=== PATIENT | male | born 1985 | race Two or more races ===

== ENCOUNTER 2018-06-18 03:05 | Inpatient (IN) | payer MEDICAID ==
[2018-06-18] MEDS ORDERED: Sodium Chloride 0.9% 1,000 ML IV ONE (03:22)
--- NOTE | 2018-06-18 03:40 | ED Physician Chart ---
ED Chief Complaint/HPI - Patient Information Date Seen:: 06/18/18 Time Seen:: 03:32 Chief Complaint:: rectal bleeding History of Present Illness:: THIS IS A 32 YO MALE HEPATIC FAILURE PATIENT WHO IS CONCERNED ABOUT RECTAL BLEEDING THIS AM. HE HAS A HISTORY OF ALCOHOL ABUSE and has been treated at [facility] WITH BLOOD TRANSFUSION AND FLOOD REMOVED FROM THE ABDOMEN SEVERAL TIMES. Allergies:: Allergies Allergy/AdvReac Type Severity Reaction Status Date / Time No Known Allergies Allergy Verified 06/18/18 03:08 Vitals:: Vital Signs - 8 hr 06/18/18 03:05 Temp 99.0 F HR 110 RR 18 BP 113/62 O2 Sat % 95 Historian:: Patient Review:: Nurse's Note Reviewed ED Review of Systems - Review of Systems General/Constitutional: No fever, No chills, No weight loss, Weakness, No diaphoresis, No edema, No loss of appetite Skin: No skin lesions, No rash, No bruising Head: No headache, No light-headedness Eyes: No loss of vision, No pain, No diplopia ENT: No earache, No nasal drainage, No sore throat, No tinnitus Neck: No neck pain, No swelling, No thyromegaly, No stiffness, No mass noted Cardio Vascular: No chest pain, No palpitations, No PND, No orthopnea, No edema Pulmonary: No SOB, No cough, No sputum, No wheezing GI: No nausea, No vomiting, No diarrhea, No pain, No melena, No hematochezia, No constipation, No hematemesis, Other (rectal bleeding ) G/U: No dysuria, No frequency, No hematuria Musculoskeletal: No bone or joint pain, No back pain, No muscle pain Endocrine: No polyuria, No polydipsia Psychiatric: No prior psych history, No depression, No anxiety, No suicidal ideation Hematopoietic: No bruising, No lymphadenopathy Allergic/Immuno: No urticaria, No angioedema Neurological: No syncope, No focal symptoms, No weakness, No paresthesia, No headache, No seizure, No dizziness, No confusion, No vertigo ED Past Medical History - Past Medical History Obtainable: Yes Past Medical History: Other (HEPATIC FAILURE SECONDARY TO ALCOHOL ABUSE.) Family History: None Social History: Non Smoker, Alcohol, No Drug Use, Single, Lives With Parents Surgical History: other (RECTAL SURGERY, FLUID REMOVED FROM THE ABDOMEN) Psychiatricy History: None Medication: Reviewed Family Medical History - Family Member Mother History Unknown: Yes ED Physical Exam - Physical Examination General/Constitutional: Awake, Well-developed, well-nourished, Alert, No distress (YELLOW AND DISTENDED ABDOMEN.), GCS 15, Non-toxic appearing, Ambulatory Head: Atraumatic Eyes: Lids, conjuctiva normal, PERRL, EOMI Skin: Nl inspection, No rash, No skin lesions, No ecchymosis, Well hydrated, No lymphadenopathy ENMT: External ears, nose nl, Nasal exam nl, Lips, teeth, gums nl Neck: Nontender, Full ROM w/o pain, No JVD, No nuchal rigidity, No bruit, No mass, No stridor Respiratory: Nl effort/Exclusion, Clear to Auscultation, No Wheeze/Rhonchi/Rales Cardio Vascular: RRR, No murmur, gallop, rubs, NL S1 S2 GI: No tenderness/rebounding/guarding, No organomegaly, No hernia, Normal BS's, Nondistended (DISTENDED ABDOMEN WITH ASCITES), No mass/bruits, No McBurney tenderness : No CVA tenderness Extremities: No tenderness or effusion, Full ROM, normal strength in all extremities, No edema, Normal digits & nails Neuro/Psych: Alert/oriented, DTR's symmetric, Normal sensory exam, Normal motor strength, Judgement/insight normal, Mood normal, Normal gait, No focal deficits Misc: Normal back, No paraspinal tenderness ED Labs/Radiology/EKG Results - Lab Results Results: Abnormal Lab Results 06/18/18 06/18/18 06/18/18 03:50 03:50 03:50 WBC 18.8 H RBC 2.25 L Hgb 6.8 L* Hct 19.4 L* MCV 86.1 MCH 30.1 H MCHC Differential 34.9 RDW 17.6 Plt Count 66 L MPV 8.3 Add Manual Diff YES INR BOX BUILDER PTT (Actin FS) Sodium 134 L Potassium 4.0 Chloride 108 H Carbon Dioxide 14.0 L Anion Gap 16.0 BUN 50 H Creatinine 3.3 H Est GFR ( Amer) 27.9 Est GFR (Non-Af Amer) 23.1 BUN/Creatinine Ratio 15.2 Glucose 93 Calcium 8.1 L Total Bilirubin 24.6 H AST 83 H ALT 16 Alkaline Phosphatase 165 H Troponin I Total Protein 4.8 L Albumin 2.7 L Globulin 2.1 Albumin/Globulin Ratio 1.3 Amylase 57 Lipase 132 H Ethyl Alcohol 06/18/18 06/18/18 03:50 03:50 WBC RBC Hgb Hct MCV MCH MCHC Differential RDW Plt Count MPV Add Manual Diff INR PTT (Actin FS) Sodium Potassium Chloride Carbon Dioxide Anion Gap BUN Creatinine Est GFR ( Amer) Est GFR (Non-Af Amer) BUN/Creatinine Ratio Glucose Calcium Total Bilirubin AST ALT Alkaline Phosphatase Troponin I 0.02 Total Protein Albumin Globulin Albumin/Globulin Ratio Amylase Lipase Ethyl Alcohol < 10 - Radiology Results Results: CT SCAN OF THE ABDOMEN AND PELVIS = ASCITES,AND LIVER DISEASE. - EKG Interpretations EKG Time:: 03:55 Rate & Rhythm: MGQI=[id number], SINUS Stanley: RIGHT ED Assessment - Assessment General Assessment: GI BLEEDING LIVER FAILURE Critical Care Time: 74 MINUTES Excludes all billable procedures: Yes This condition life threatening/high prob of deterioration: Yes ED Septic Shock - . Is Septic Shock (SBP<90, OR Lactate>4 mmol\L) present?: No - <6hrs of presentation: Vital Signs: Vital Signs - 8 hr 06/18/18 03:05 Temp 99.0 F HR 110 RR 18 BP 113/62 O2 Sat % 95 ED Reassessment (Disposition) - Reassessment Reassessment Condition:: Unchanged - Diagnosis Diagnosis:: LOWER GI BLEEDING HEPATIC FAILURE - Patient Disposition Discharge/Transfer:: Acute Care w/in this hosp Admitted to:: ICU Admitting Medical Physician:: Edgardo Mcarthur Condition at Disposition:: Improved
[2018-06-18 04:17] LABS: MEAN CELL VOLUME 86.1 fl (80-99); MEAN CORPUSCULAR HEMOGLOBIN 30.1 pg (26.0-30.0); MEAN CORPUSCULAR HGB CONC 34.9 pg (28.0-36.0); MEAN PLATELET VOLUME 8.3 fl; PLATELET COUNT 66 Th/cmm (150-400); RED BLOOD COUNT 2.25 Mil/cmm (4.30-5.70); RED CELL DISTRIBUTION WIDTH 17.6 % (11.5-20.0)
[2018-06-18 04:30] LABS: HEMATOCRIT 19.4 % (41.0-60); HEMOGLOBIN 6.8 gm/dL (12-16); WHITE BLOOD COUNT 18.8 Th/cmm (4.8-10.8)
[2018-06-18 04:52] LABS: ALB/GLOB RATIO 1.3 (1.0-1.8); ALBUMIN 2.7 gm/dL (4.2-5.5); BILIRUBIN,TOTAL 24.6 mg/dL (0.3-1.0); CALCIUM SERUM 8.1 mg/dL (8.6-10.3); CREATININE - SERUM 3.3 mg/dL (0.7-1.3); GFR AFRICAN-AMERICAN 27.9 ml/min (>90); GFR NON AFRICAN-AMERICAN 23.1 ml/min; TOTAL PROTEIN,SERUM 4.8 gm/dL (6.0-8.3)
[2018-06-18 06:01] LABS: BAND NEUTROPHILE 2 % (0-10); LYMPHOCYTE 34 % (20-50); MONOCYTE 1 % (2-10); NEUTROPHILS 63 % (40-80)
[2018-06-18 06:02] LABS: BURR CELLS 1+; HYPOCHROMIA 1+; PLATELET ESTIMATE DECREASED PLATELETS (NORMAL); POIKILOCYTOSIS 1+; POLYCHROMASIA 1+; SCHISTOCYTES 1+
--- NOTE | 2018-06-18 06:46 | History and Physical ---
History of Present Illness - HPI Chief Complaint: rectal bleeding HPI: 32 y/o male who presents to [facility] ER for rectal bleeding. Patient is a 32 y/o male with hepatic failure who presents with rectal bleeding which began this morning. Patient has a history of ETOH abuse was recently seen at [facility] in [place] and was had fluid removed from his abdomen. He also received a blood transfusion recently. Vital Signs: Last Vital Signs Temp 97.7 F 06/18/18 05:50 Pulse 100 06/18/18 05:50 Resp 20 06/18/18 05:50 BP 97/58 06/18/18 05:50 Pulse Ox 99 06/18/18 05:50 Past Medical History Cardiovascular: Report: No Pertinent Hx Pulmonary: Report: No Pertinent Hx RD MECHANICAL ENGINEER: Report: No Pertinent Hx GI: Report: GI Bleed, Other (hepatic failure) Psych: Report: No Pertinent Hx Musculoskeletal: Report: No Pertinent Hx Rheumatologic: Report: No pertinent Hx Infectious Disease: Report: No Pertinent Hx Renal/: Report: No Pertinent Hx Endocrine: Report: No Pertinent Hx Dermatology: Report: No Pertinent Hx - Past Surgical History Past Surgical History: Other (GI surgery) Family Medical History - Family Member Mother History Unknown: Yes Social History Smoke: No Alcohol: Other (Yes) Drugs: None Lives: With Family - Medications Home Medications: Home Medication Medication Instructions Recorded Type Folic Acid [Folate*] 1 mg PO DAILY 06/18/18 History Levetiracetam [Keppra] 500 mg PO BID 06/18/18 History Midodrine HCl 10 mg PO TID 06/18/18 History Octreotide Acetate [Sandostatin] 100 mcg SQ TID 06/18/18 History Potassium Chloride ER [Klor-Con] 2 tab PO DAILY 06/18/18 History Thiamine [Vitamin B1] 100 mg PO DAILY 06/18/18 History - Allergies Allergies/Adverse Reactions: Allergies Allergy/AdvReac Type Severity Reaction Status Date / Time No Known Allergies Allergy Verified 06/18/18 03:08 Review of Systems - Review of Systems Constitutional: Report: No Significant Eyes: Report: No Significant ENT: Report: No Significant Respiratory: Report: No Significant Cardiovascular: Report: No Significant Gastrointestinal: Report: Other (rectal bleeding) Genitourinary: Report: No Significant Musculoskeletal: Report: No Significant Skin: Report: No Significant Neurological: Report: No Significant Physical Exam - Physical Exam HEENT: Report: Ears Nose Throat within normal limits, Pharnyx within normal limits Neck: Report: Within normal limits Cardiovascular Systems: Report: +s1/s2 noted, Regular, Rate and Rhythm Respiratory: Report: Breath Sounds are within normal limits Abdomen: Report: Hepatomegaly Noted Back: Report: Inspection of back is within normal limits. Extremities: Report: Non-tender to palpation. Skin: Report: Other (jaundice) Neuro/Psych: Report: Mood affect is within normal limits, A+Ox3, CN II-XII intact - Lab Results All Lab Results last 24 hours: Laboratory Results - last 24 hr 06/18/18 06/18/18 06/18/18 03:50 03:50 03:50 WBC 18.8 H RBC 2.25 L Hgb 6.8 L* Hct 19.4 L* MCV 86.1 MCH 30.1 H MCHC Differential 34.9 RDW 17.6 Plt Count 66 L MPV 8.3 Add Manual Diff YES Band Neutrophils % 2 Neutrophils (Manual) 63 Lymphocytes 34 Monocytes 1 L Hypochromia 1+ Platelet Estimate DECREASED PLATELETS Polychromasia 1+ Poikilocytosis 1+ Fox Cells 1+ Schistocytes 1+ INR FIBER DESIGNER PTT (Actin FS) Sodium 134 L Potassium 4.0 Chloride 108 H Carbon Dioxide 14.0 L Anion Gap 16.0 BUN 50 H Creatinine 3.3 H Est GFR ( Amer) 27.9 Est GFR (Non-Af Amer) 23.1 BUN/Creatinine Ratio 15.2 Glucose 93 Whole Bld Lactic Acid Calcium 8.1 L Total Bilirubin 24.6 H AST 83 H ALT 16 Alkaline Phosphatase 165 H Ammonia Troponin I Total Protein 4.8 L Albumin 2.7 L Globulin 2.1 Albumin/Globulin Ratio 1.3 Amylase 57 Lipase 132 H TSH Ethyl Alcohol Blood Type Antibody Screen Crossmatch 06/18/18 06/18/18 06/18/18 03:50 03:50 03:50 WBC RBC Hgb Hct MCV MCH MCHC Differential RDW Plt Count MPV Add Manual Diff Band Neutrophils % Neutrophils (Manual) Lymphocytes Monocytes Hypochromia Platelet Estimate Polychromasia Poikilocytosis Fox Cells Schistocytes INR PTT (Actin FS) Sodium Potassium Chloride Carbon Dioxide Anion Gap BUN Creatinine Est GFR ( Amer) Est GFR (Non-Af Amer) BUN/Creatinine Ratio Glucose Whole Bld Lactic Acid Calcium Total Bilirubin AST ALT Alkaline Phosphatase Ammonia 55 H Troponin I 0.02 Total Protein Albumin Globulin Albumin/Globulin Ratio Amylase Lipase TSH 3.57 Ethyl Alcohol Blood Type Antibody Screen Crossmatch 06/18/18 06/18/18 06/18/18 03:50 03:50 03:50 WBC RBC Hgb Hct MCV MCH MCHC Differential RDW Plt Count MPV Add Manual Diff Band Neutrophils % Neutrophils (Manual) Lymphocytes Monocytes Hypochromia Platelet Estimate Polychromasia Poikilocytosis Arielle Cells Schistocytes INR PTT (Actin FS) Sodium Potassium Chloride Carbon Dioxide Anion Gap BUN Creatinine Est GFR ( Amer) Est GFR (Non-Af Amer) BUN/Creatinine Ratio Glucose Whole Bld Lactic Acid 0.68 Calcium Total Bilirubin AST ALT Alkaline Phosphatase Ammonia Troponin I Total Protein Albumin Globulin Albumin/Globulin Ratio Amylase Lipase TSH Ethyl Alcohol < 10 Blood Type O POSITIVE Antibody Screen NEGATIVE Crossmatch See Detail - Assessment Assessment: GI bleeding h/o alcohol abuse heaptic failure secondary to ETOH abuse severe anemia ascites leukocytosis thrombocytopenia acute on chronic renal failure - Plan Plan: GI consult type and screen for 2 units packed RBC's and transfuse ID consult lactic acid level renal consult hepatitis panel IV Protonix PT/INR repeat CBC,CMP tomorrow AM
[2018-06-18] MEDS ORDERED: D5-0.9%NS 1,000 ML IV SCH (07:13)
[2018-06-18 07:30] LABS: INR 2.59 (0.5-1.4); PROTHROMBIN TIME (TEST) 28.3 SECONDS (9.5-11.5)
[2018-06-18] MEDS ORDERED: Albumin 5% 12.5gm/250mL 12.5 GM/250 ML BTL IV ONE ×3 (08:06→08:07)
[2018-06-18] MEDS ORDERED: Sodium Chloride 0.9% 1,000 ML IV SCH ×2 (08:15)
[2018-06-18 09:07] LABS: HEMATOCRIT 13.7 % (41.0-60); HEMOGLOBIN 4.9 gm/dL (12-16)
[2018-06-18] MEDS ORDERED: SODIUM CHLORIDE 0.9% IV ONE (09:21)
[2018-06-18] MEDS ORDERED: OCTREOTIDE ACETATE IV ONE (09:21)
[2018-06-18] MEDS ORDERED: Pantoprazole 80 MG in Sodium Chloride 0.9% 100 ML IV ONE (09:30)
--- NOTE | 2018-06-18 09:40 | Diagnostic Imaging Report ---
CT scan abdomen and pelvis without intravenous contrast HISTORY: Rectal bleeding, abdominal distention Total DLP equals 775 CTDI equals 12.6 Axial sections were obtained from the xiphoid process down to the pubic symphysis. The exam demonstrates a moderate to large amount of ascites. No focal lesions seen within the liver. The spleen appears normal. No focal abnormality seen within the pancreas. There is a dilated gallbladder with intraluminal hyperdensity. Cholelithiasis cannot be excluded. Sonography would provide additional assessment. No focal renal lesions. Poor delineation of bowel wall margins. There appears to be generalized thickening of the bowel wall through the sigmoid colon and rectum. Suggestion of small air collections within the wall of the rectum and possibly the ascending colon. Again, inflammatory change cannot be excluded. There appears to be small collections of extraluminal gas adjacent to the right anterior margin of the rectal wall. Inflammatory change including abscess formation cannot be excluded. Clinical correlation is needed. IMPRESSION: 1. Moderate to large amount of ascites 2. Suggestion of wall thickening involving the sigmoid colon and rectum. Inflammatory change cannot be excluded. Suggestion of small air collections within the wall of the rectum and possibly ascending colon. Again, inflammatory change cannot be excluded. 3. Suggestion of small extraluminal gas collections adjacent the right anterior margin of the rectal wall. Inflammatory change including abscess formation cannot be excluded. Clinical correlation is needed. 4. Intraluminal hyperdensity within a gallbladder. Findings may be associated with "sludge". Cholelithiasis cannot be excluded. Sonography would provide additional assessment.
[2018-06-18] MEDS: Pantoprazole 80 MG in Sodium Chloride 0.9% 100 ML IV SCH ×2 (09:45→20:45)
--- NOTE | 2018-06-18 10:40 | Operative Report ---
DATE OF SURGERY: 06/18/2018 PREOPERATIVE DIAGNOSES: 1. Severe rectal bleeding post-hemorrhoid surgery. 2. Thrombocytopenia. 3. Markedly elevated prothrombin time of 28.3. 4. Cirrhosis of the liver. POSTOPERATIVE DIAGNOSES: 1. Severe rectal bleeding post-hemorrhoid surgery. 2. Thrombocytopenia. 3. Markedly elevated prothrombin time of 28.3. 4. Cirrhosis of the liver. OPERATION DONE: Insertion of central line, right femoral vein. DESCRIPTION OF PROCEDURE: The right groin was shaved, prepped with ChloraPrep and draped in appropriate manner. 1% lidocaine was used to infiltrate the inguinal creases medial to the femoral pulsation. A size 18 needle was used to locate the vein. Guide was inserted, the dilator and then the triple lumen catheter. This anchored to skin with 2-0 silk. Compression will be applied should this patient start to bleed. [facility]# [id number]
[2018-06-18] MEDS ORDERED: Propofol 10 mg/mL 20mL Vial **SURGERY USE ONLY IV ONE (10:50)
[2018-06-18] MEDS ORDERED: Lidocaine 2% Gel 5 mL TP ONE (10:50)
--- NOTE | 2018-06-18 11:48 | Consultation ---
DATE OF CONSULTATION: 06/18/2018 EMERGENCY SURGICAL CONSULT REFERRING PHYSICIAN: Dr. Mcarthur. REASON FOR CONSULTATION: Rectal bleeding with severe anemia and no IV access for blood replacement. Thank you for referring this patient to me. This is a 32-year-old male apparently who was at [facility] about 3 weeks ago with rectal bleeding and was treated there. The patient has a long history of alcohol abuse and liver failure. On admission, the hemoglobin was 6.8 grams, WBC of 18,000, platelet count low at 66,000. The liver function tests are severely abnormal with a bilirubin of 24.6, AST of 83, alkaline phosphatase of 165. Ammonia of 55, albumin 2.7. The patient was given 2 units of blood and FFP and this morning following yesterday's admission, the hemoglobin had dropped down more to 4.9 hemoglobin. The patient is alert and awake. Mother is at bedside. There is no IV access and request for placement of central line was made. In view of his thrombocytopenia and PT of 28.3 and INR 2.59, access will be placed in the femoral vein, so pressure can be applied should bleeding be a problem. Informed consent discussed with the patient and the mother and they understand. JOB# [id number]
[2018-06-18 12:37] LABS: MEAN CELL VOLUME 87.1 fl (80-99); MEAN CORPUSCULAR HEMOGLOBIN 29.8 pg (26.0-30.0); MEAN CORPUSCULAR HGB CONC 34.2 pg (28.0-36.0); MEAN PLATELET VOLUME 8.8 fl; PLATELET COUNT 89 Th/cmm (150-400); RED BLOOD COUNT 2.18 Mil/cmm (4.30-5.70); RED CELL DISTRIBUTION WIDTH 14.9 % (11.5-20.0)
[2018-06-18] MEDS: Morphine Sulfate 2 mg/mL 1mL Syr IVP PRN ×3 (12:40→23:17)
[2018-06-18 12:46] LABS: WHITE BLOOD COUNT 23.2 Th/cmm (4.8-10.8)
[2018-06-18 12:47] LABS: HEMOGLOBIN 6.5 gm/dL (12-16)
[2018-06-18 13:57] LABS: BAND NEUTROPHILE 7 % (0-10); EOSINOPHIL 1 % (0-5); LYMPHOCYTE 30 % (20-50); MONOCYTE 5 % (2-10); NEUTROPHILS 57 % (40-80)
[2018-06-18 13:58] LABS: PLATELET ESTIMATE SLIGHT DECREASED (NORMAL)
--- NOTE | 2018-06-18 15:08 | Operative Report ---
DATE OF SURGERY: 06/18/2018 PROCEDURE: 1. Esophagogastroduodenoscopy. 2. Flexible sigmoidoscopy with epinephrine injection, endoclip placement and bipolar electrocautery. PREOPERATIVE DIAGNOSES: Massive GI bleed in the setting of recent hemorrhoid banding versus hemorrhoidectomy and decompensated alcoholic cirrhosis. POSTOPERATIVE DIAGNOSES: 1. 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 2. Flexible sigmoidoscopy showed active oozing from anorectal/distal rectal ulcer, likely a band ligation site, status post control of bleeding as described below; large amounts of blood clots noted in the rectum with limited views obtained. INDICATIONS: A 32-year-old male with history of decompensated alcoholic cirrhosis, admitted for massive rectal bleeding. He had rubber banding of his hemorrhoids versus surgical hemorrhoidectomy performed about 2 weeks ago at an outside facility. He now presents with massive hematochezia with hypotension, anemia, thrombocytopenia and coagulopathy. CONSENT: Informed consent was obtained from the patient and his mother prior to the procedure after detailed explanation of risks, benefits, alternatives include but not limited to infection, bleeding, perforation and . SEDATION: Monitored anesthesia care per Dr. Foley. DESCRIPTION OF PROCEDURE AND FINDINGS: The procedure took place as an inpatient at the bedside in the Intensive Care Unit of [facility]. The patient was kept in a left lateral decubitus position. Adequate sedation was achieved by Dr. Foley. Initially upper endoscopy was performed followed by flexible sigmoidoscopy. An Olympus diagnostic upper endoscope was advanced through the patient's mouth and into the esophagus. It was advanced via the stomach and into the duodenum up to second portion. Retroflexion was next performed in the stomach. Notable upper GI findings included small to moderate size nonbleeding GE junctional/cardia varices. These were left alone. There was mild gastritis of the antrum. The esophagus was free of varices. The duodenum up to this portion appeared normal. At this point, the scope was withdrawn from the patient and sigmoidoscopy performed. Rectal examination revealed active oozing from the anorectal area and a massive passage of blood clots. A diagnostic upper endoscope was advanced via the patient's anus and into the rectum. Here, a large amount of clots were identified. These were suctioned out and flushed out to clear as best possible. There was a large area of ulceration in the anorectal area likely representing a rubber band ligation site versus less likely a surgical site of hemorrhoidectomy. There was active oozing here. First submucosal injection of epinephrine 1:10,000 mix was performed and a total of 10 mL was injected at the site. The oozing slowed down at this point. This was followed by endoclip placement x 2 at the areas of bleeding at the ulcer base and edge. There was further slowing of the bleeding, but still ongoing. This was followed by bipolar electrocautery using a 7-Malay gold probe. There was cessation of bleeding achieved at this point. The area was visualized for another 2-3 minutes and no further bleeding was identified from the band ligation ulcer site. There was a large amount of clots and debris still in the rectum and the rectal vault was not able to be visualized. There were still some adherent clots in the rectal wall. The scope was then withdrawn from the patient. RECOMMENDATIONS: 1. Continue Protonix and Sandostatin drips. 2. Continue blood transfusions to keep hemoglobin greater than 8 and INR less than 1.5 if possible and platelet count greater than 50,000. 3. N.p.o. status for now. 4. Continue antibiotics. 5. The patient's prognosis is guarded. 6. If the patient continues to bleed, then consider surgical evaluation for oversewing of this anorectal ulcer site. Alternatively, the patient may need to be transferred to tertiary center for TIPS placement to decompress this area. Thank you, Dr. Edgardo Mcarthur for involving us in the care of your patient. If you have any further questions, please call us. JOB# [id number] ELIZABETH
[2018-06-18] MEDS: D5-0.9%NS 1,000 ML IV SCH ×2 (15:24→23:04)
[2018-06-18 15:55] LABS: MEAN CELL VOLUME 86.1 fl (80-99); MEAN CORPUSCULAR HEMOGLOBIN 29.9 pg (26.0-30.0); MEAN CORPUSCULAR HGB CONC 34.7 pg (28.0-36.0); MEAN PLATELET VOLUME 7.8 fl; PLATELET COUNT 75 Th/cmm (150-400); RED CELL DISTRIBUTION WIDTH 14.2 % (11.5-20.0)
[2018-06-18 15:57] LABS: HEMATOCRIT 20.7 % (41.0-60); HEMOGLOBIN 7.2 gm/dL (12-16)
[2018-06-18 16:01] LABS: WHITE BLOOD COUNT 14.3 Th/cmm (4.8-10.8)
[2018-06-18 16:02] LABS: % LYMPHOCYTES 19.3 % (20.0-50.0); % NEUTROPHILS 65.1 % (40.0-80.0)
[2018-06-18 16:03] LABS: % BASOPHILS 0.5 % (0.0-2.0); % EOSINOPHILS 0.1 % (0.0-5.0); BASOPHILE ABSOLUTE 0.1 Th/cumm (0-0.2); LYMPHOCYTE ABSOLUTE 2.8 Th/cmm (1.5-3.0); MONOCYTE ABSOLUTE 2.1 Th/cmm (0.3-1.0); NEUTROPHILE ABSOLUTE 9.3 Th/cmm (1.8-8.0)
[2018-06-18 16:22] LABS: BAND NEUTROPHILE 3 % (0-10); LYMPHOCYTE 31 % (20-50); MONOCYTE 4 % (2-10); NEUTROPHILS 62 % (40-80); PLATELET ESTIMATE SLIGHT DECREASED (NORMAL)
[2018-06-18 17:54] LABS: INR 1.85 (0.5-1.4); PROTHROMBIN TIME (TEST) 19.9 SECONDS (9.5-11.5)
--- NOTE | 2018-06-18 18:03 | Consultation ---
DATE OF CONSULTATION: 06/18/2018 GASTROENTEROLOGY CONSULTATION REQUESTING PHYSICIAN: Edgardo Mcarthur DO REASON FOR CONSULTATION: GI bleed. HISTORY OF PRESENT ILLNESS: A 32-year-old male with a history of decompensated alcoholic cirrhosis, whose last drink was about 2 months ago, admitted to a local hospital in [place] for rectal bleeding. He has had series of 2 endoscopies and 2 colonoscopies there. During his last colonoscopy session, there was a question of rubber band ligation performed versus perhaps surgical hemorrhoidectomy. The patient also had a recent paracentesis. He woke up this morning with profuse hematochezia. He was in shock. He required ICU monitoring. He had a low hemoglobin and coagulopathy and thrombocytopenia. We were asked to see him urgently for a massive GI bleeding. PAST MEDICAL HISTORY: As above, notable for decompensated alcoholic cirrhosis. MEDICATIONS: Here are Protonix and Sandostatin drips, Zosyn, norepinephrine drip as needed, and Ativan p.r.n. ALLERGIES: None. SOCIAL HISTORY: No tobacco or drugs. Positive alcohol abuse, but last drink was about 2 months ago. FAMILY HISTORY: Noncontributory. REVIEW OF SYSTEMS: Negative. PHYSICAL EXAMINATION: VITAL SIGNS: Temperature of 97.3, blood pressure is 96/45, pulse of 107, respirations 14, and O2 sat is 99%. GENERAL: The patient is well-developed, chronically ill-appearing male, who is in mild distress. HEENT: Sclerae icteric. Oropharynx is clear. CARDIOVASCULAR: Regular rate and rhythm. LUNGS: With occasional rhonchi at the base. ABDOMEN: Soft. Moderate ascites. No tenderness to palpation. RECTAL: Reveals massive blood with clots per rectum with active oozing. LABORATORY DATA AND IMAGING: WBC 18.8; hemoglobin initially of 6.8, but down to 4.9; and platelet count is 66. INR is 2.6. Sodium 134, creatinine 3.3, bilirubin 24.6, AST 83, ALT 16, alkaline phosphatase 165, ammonia 55, and albumin 2.7. Lipase slightly elevated to 132. Alcohol level is negative. CT scan of the abdomen and pelvis without contrast shows [id number] ascites, suggestion of wall thickening involving the sigmoid and rectum, suggestion of small air collections within the wall of the rectum and possibly ascending colon, suggestion of a small extraluminal gas collections along the right anterior margin of the rectal wall, extraluminal hyperdensity possibly representing gallbladder sludge. IMPRESSION: 1. Massive gastrointestinal bleed, most likely lower from recent site of surgical hemorrhoidectomy versus band ligation. Also, there may be less likely esophageal or gastric varices, peptic ulcer disease, angiodysplasia, etc. 2. Decompensated alcoholic cirrhosis. 3. Ascites, rule out spontaneous bacterial peritonitis. 4. Leukocytosis, rule out sepsis. 5. Anemia. 6. Thrombocytopenia. 7. Coagulopathy. RECOMMENDATIONS: 1. Upper endoscopy with flexible sigmoidoscopy to follow urgently. 2. Fresh frozen plasma and vitamin K. 3. Packed RBCs to be transfused. 4. Triple lumen IV access. 5. Followup labs. 6. Protonix and Sandostatin drips. 7. Obtain paracentesis tomorrow to rule out SBP. 8. Continue antibiotics. Thank you Dr. Edgardo Mcarthur for involving us in the care of your patient. If you have any further questions, please call us. JOB# [id number]
[2018-06-18 20:16] LABS: % BASOPHILS 0.6 % (0.0-2.0); % EOSINOPHILS 0.2 % (0.0-5.0); % LYMPHOCYTES 23.7 % (20.0-50.0); % NEUTROPHILS 61.5 % (40.0-80.0); BASOPHILE ABSOLUTE 0.1 Th/cumm (0-0.2); LYMPHOCYTE ABSOLUTE 3.4 Th/cmm (1.5-3.0); MEAN CELL VOLUME 86.7 fl (80-99); MEAN CORPUSCULAR HEMOGLOBIN 30.5 pg (26.0-30.0); MEAN CORPUSCULAR HGB CONC 35.2 pg (28.0-36.0); MEAN PLATELET VOLUME 7.7 fl; NEUTROPHILE ABSOLUTE 8.7 Th/cmm (1.8-8.0); PLATELET COUNT 77 Th/cmm (150-400); RED BLOOD COUNT 2.32 Mil/cmm (4.30-5.70); RED CELL DISTRIBUTION WIDTH 14.5 % (11.5-20.0); WHITE BLOOD COUNT 14.2 Th/cmm (4.8-10.8)
[2018-06-18 20:35] LABS: HEMATOCRIT 20.1 % (41.0-60); HEMOGLOBIN 7.1 gm/dL (12-16)
--- NOTE | 2018-06-18 23:31 | Consultation ---
Consult Note - Consult Note Service Date: 06/18/18 Referring Physician: Edgardo Mcarthur Consult Note: PHYSICIAN Consultation Note: Date of Admission: 06/18/18 Purpose of Consultation: Leukocytosis Chief Complaint: Patient MICHELE JESSICA was admitted to location Intensive Care Unit with LOWER GI BLEEDING,SEVERE ANEMIA,HEPATIC FAILURE. History of Present Illness:32-year-old male with a past medical history of cirrhosis, history of alcohol abuse, hemorrhoids which was treated 3 months ago , presented with rectal bleeding and distention the abdomen requiring surgery level. His hemoglobin was low so he has received multiple blood transfusions. His WBC count remained on higher side 14,000. ID consult was called for further evaluation and management. Patient denies any fever or chills. Patient is receiving Zosyn. Past Medical History: cirrhosis, history of alcohol abuse, hemorrhoids Allergies Allergy/AdvReac Type Severity Reaction Status Date / Time No Known Allergies Allergy Verified 06/18/18 03:08 Vital Signs Temp 98.2 F 06/18/18 17:00 Pulse 94 06/18/18 19:31 Resp 18 06/18/18 19:31 BP 121/74 06/18/18 19:00 Pulse Ox 100 06/18/18 22:00 Intake & Output 06/18/18 06/18/18 06/19/18 06:59 18:59 06:59 Intake Total 2422.263 1100 Output Total 400 Balance 2022.263 1100 Weight (lbs) 93.44 kg 97.154 kg Intake: Intake, IV Amount 430.520 1820 D5-0.9%Ns 1,000 ml @ 150 1000 mls/hr IV .Q6H40M [facility] Rx# :[id number] Norepinephrine 4 mg In 72.263 Dextrose 5% 250 ml @ Per Protocol IV TITR PRN Rx#: [id number] Pantoprazole 80 mg In 100 Sodium Chloride 0.9% 100 ml @ 10 mls/hr IV Q10H [facility] Rx#:[id number] Piperacillin Sodium/ 150 Tazobact 3.375 gm In Sodium Chloride 0.9% 50 ml @ 100 mls/hr IV Q6HR [facility] Rx#:[id number] Oral 0 Blood Product 2200 Output: Urine 400 Other: # Bowel Movements 3 Stool Characteristics Bloody Bloody Weight Source Bedscale Bedscale Laboratory Results - last 24 hr 06/18/18 06/18/18 06/18/18 03:50 03:50 03:50 WBC 18.8 H RBC 2.25 L Hgb 6.8 L* Hct 19.4 L* MCV 86.1 MCH 30.1 H MCHC Differential 34.9 RDW 17.6 Plt Count 66 L MPV 8.3 Add Manual Diff YES Neutrophils % Band Neutrophils % 2 Lymphocytes % Monocytes % Eosinophils % Basophils % Neutrophils (Manual) 63 Lymphocytes 34 Monocytes 1 L Eosinophils Hypochromia 1+ Platelet Estimate DECREASED PLATELETS Polychromasia 1+ Poikilocytosis 1+ [place] Cells 1+ Schistocytes 1+ PT INR ARMOURED CAR ESCORT PTT (Actin FS) Sodium 134 L Potassium 4.0 Chloride 108 H Carbon Dioxide 14.0 L Anion Gap 16.0 BUN 50 H Creatinine 3.3 H Est GFR ( Amer) 27.9 Est GFR (Non-Af Amer) 23.1 BUN/Creatinine Ratio 15.2 Glucose 93 Whole Bld Lactic Acid Calcium 8.1 L Total Bilirubin 24.6 H AST 83 H ALT 16 Alkaline Phosphatase 165 H Ammonia Troponin I Total Protein 4.8 L Albumin 2.7 L Globulin 2.1 Albumin/Globulin Ratio 1.3 Amylase 57 Lipase 132 H TSH Ethyl Alcohol Blood Type Antibody Screen Crossmatch 06/18/18 06/18/18 06/18/18 03:50 03:50 03:50 WBC RBC Hgb Hct MCV MCH MCHC Differential RDW Plt Count MPV Add Manual Diff Neutrophils % Band Neutrophils % Lymphocytes % Monocytes % Eosinophils % Basophils % Neutrophils (Manual) Lymphocytes Monocytes Eosinophils Hypochromia Platelet Estimate Polychromasia Poikilocytosis [place] Cells Schistocytes PT INR PTT (Actin FS) Sodium Potassium Chloride Carbon Dioxide Anion Gap BUN Creatinine Est GFR ( Amer) Est GFR (Non-Af Amer) BUN/Creatinine Ratio Glucose Whole Bld Lactic Acid Calcium Total Bilirubin AST ALT Alkaline Phosphatase Ammonia 55 H Troponin I 0.02 Total Protein Albumin Globulin Albumin/Globulin Ratio Amylase Lipase TSH 3.57 Ethyl Alcohol Blood Type Antibody Screen Crossmatch 06/18/18 06/18/18 06/18/18 03:50 03:50 03:50 WBC RBC Hgb Hct MCV MCH MCHC Differential RDW Plt Count MPV Add Manual Diff Neutrophils % Band Neutrophils % Lymphocytes % Monocytes % Eosinophils % Basophils % Neutrophils (Manual) Lymphocytes Monocytes Eosinophils Hypochromia Platelet Estimate Polychromasia Poikilocytosis [place] Cells Schistocytes PT INR PTT (Actin FS) Sodium Potassium Chloride Carbon Dioxide Anion Gap BUN Creatinine Est GFR ( Amer) Est GFR (Non-Af Amer) BUN/Creatinine Ratio Glucose Whole Bld Lactic Acid 0.68 Calcium Total Bilirubin AST ALT Alkaline Phosphatase Ammonia Troponin I Total Protein Albumin Globulin Albumin/Globulin Ratio Amylase Lipase TSH Ethyl Alcohol < 10 Blood Type O POSITIVE Antibody Screen NEGATIVE Crossmatch See Detail 06/18/18 06/18/18 06/18/18 07:09 07:09 08:56 WBC RBC Hgb 4.9 L* Hct 13.7 L* D MCV MCH MCHC Differential RDW Plt Count MPV Add Manual Diff Neutrophils % Band Neutrophils % Lymphocytes % Monocytes % Eosinophils % Basophils % Neutrophils (Manual) Lymphocytes Monocytes Eosinophils Hypochromia Platelet Estimate Polychromasia Poikilocytosis [place] Cells Schistocytes PT 28.3 H INR 2.59 H PTT (Actin FS) Sodium Potassium Chloride Carbon Dioxide Anion Gap BUN Creatinine Est GFR ( Amer) Est GFR (Non-Af Amer) BUN/Creatinine Ratio Glucose Whole Bld Lactic Acid 2.87 H* Calcium Total Bilirubin AST ALT Alkaline Phosphatase Ammonia Troponin I Total Protein Albumin Globulin Albumin/Globulin Ratio Amylase Lipase TSH Ethyl Alcohol Blood Type Antibody Screen Crossmatch 06/18/18 06/18/18 06/18/18 12:25 15:50 17:30 WBC 23.2 H* 14.3 H D RBC 2.18 L 2.40 L Hgb 6.5 L* 7.2 L* Hct 19.0 L* D 20.7 L* MCV 87.1 86.1 MCH 29.8 29.9 MCHC Differential 34.2 34.7 RDW 14.9 14.2 Plt Count 89 L 75 L MPV 8.8 7.8 Add Manual Diff YES ARMOURED CAR ESCORT Neutrophils % 65.1 Band Neutrophils % 7 3 Lymphocytes % 19.3 L Monocytes % 15.0 H Eosinophils % 0.1 Basophils % 0.5 Neutrophils (Manual) 57 62 Lymphocytes 30 31 Monocytes 5 4 Eosinophils 1 Hypochromia Platelet Estimate SLIGHT DECREASED SLIGHT DECREASED Polychromasia Poikilocytosis [place] Cells Schistocytes PT 19.9 H INR 1.85 H PTT (Actin FS) 59.1 H Sodium Potassium Chloride Carbon Dioxide Anion Gap BUN Creatinine Est GFR ( Amer) Est GFR (Non-Af Amer) BUN/Creatinine Ratio Glucose Whole Bld Lactic Acid Calcium Total Bilirubin AST ALT Alkaline Phosphatase Ammonia Troponin I Total Protein Albumin Globulin Albumin/Globulin Ratio Amylase Lipase TSH Ethyl Alcohol Blood Type Antibody Screen Crossmatch 06/18/18 20:00 WBC 14.2 H RBC 2.32 L Hgb 7.1 L* Hct 20.1 L* MCV 86.7 MCH 30.5 H MCHC Differential 35.2 RDW 14.5 Plt Count 77 L MPV 7.7 Add Manual Diff Neutrophils % 61.5 Band Neutrophils % Lymphocytes % 23.7 Monocytes % 14.0 H Eosinophils % 0.2 Basophils % 0.6 Neutrophils (Manual) Lymphocytes Monocytes Eosinophils Hypochromia Platelet Estimate Polychromasia Poikilocytosis [place] Cells Schistocytes PT INR PTT (Actin FS) Sodium Potassium Chloride Carbon Dioxide Anion Gap BUN Creatinine Est GFR ( Amer) Est GFR (Non-Af Amer) BUN/Creatinine Ratio Glucose Whole Bld Lactic Acid Calcium Total Bilirubin AST ALT Alkaline Phosphatase Ammonia Troponin I Total Protein Albumin Globulin Albumin/Globulin Ratio Amylase Lipase TSH Ethyl Alcohol Blood Type Antibody Screen Crossmatch Home Medication Medication Instructions Recorded Type Folic Acid [Folate*] 1 mg PO DAILY 06/18/18 History Levetiracetam [Keppra] 500 mg PO BID 06/18/18 History Midodrine HCl 10 mg PO TID 06/18/18 History Octreotide Acetate [Sandostatin] 100 mcg SQ TID 06/18/18 History Potassium Chloride ER [Klor-Con] 2 tab PO DAILY 06/18/18 History Thiamine [Vitamin B1] 100 mg PO DAILY 06/18/18 History Current Medications Generic Name Dose Route Start Last Admin Trade Name Freq PRN Reason Stop Dose Admin Piperacillin Sod/Tazobactam 50 mls @ 100 mls/hr 06/18/18 07:15 06/18/18 23:13 Sod 3.375 gm/ Sodium Chloride IV 08/17/18 07:14 100 mls/hr Q6HR [facility] Administration Norepinephrine Bitartrate 4 mg 254 mls @ 0 mls/hr 06/18/18 08:00 06/18/18 15: 19 / Dextrose IV 08/17/18 07:59 0 mcg/min TITR PRN 0 mls/hr BP MAINTENANCE (PER PROTOCOL) Titration Protocol Per Protocol Pantoprazole Sodium 80 mg/ 100 mls @ 10 mls/hr 06/18/18 09:30 06/18/18 20:45 Sodium Chloride IV 08/17/18 09:29 10 mls/hr Q10H [facility] Administration Octreotide Acetate 1,250 mcg/ 252.5 mls @ 0 mls/hr 06/18/18 09:30 06/18/18 18 :01 Sodium Chloride IV 08/17/18 09:29 10 mls/hr .Q0M [facility] Administration Protocol Per Protocol Dextrose/Sodium Chloride 1,000 mls @ 150 mls/hr 06/18/18 15:30 06/18/18 23:04 D5-0.9%Ns IV 08/17/18 15:29 150 mls/hr .Q6H40M [facility] Administration Lorazepam 1 mg 06/18/18 06:56 Ativan IVP 08/17/18 06:55 Q4HR PRN Agitation Protocol Miscellaneous 1 ea 06/18/18 06:50 Zosyn Iv Per Pharmacy [facility] 08/17/18 06:49 PRN PRN PROTOCOL Morphine Sulfate 2 mg 06/18/18 06:54 06/18/18 23:17 Morphine IVP 08/17/18 06:53 2 mg Q4HR PRN Administration Pain (Moderate) Pantoprazole Sodium 40 mg 06/18/18 09:00 06/18/18 08:17 Protonix IVP 08/17/18 08:59 40 mg DAILY [facility] Administration Review of Systems: A 12 point ROS was reviewed with the pertinent positive and negatives noted in the HPI. Social History Smoking Status Smoker, status unknown Alcohol Use Yes Family Medical History Family Medical History Start: 06/18/18 05: 34 Freq: ONCE Status: Active Protocol: Document 06/18/18 05:50 [facility] (Rec: 06/18/18 06:01 [facility] [id number] ) Family Medical History Mother History Unknown Yes Physical Exam: General: Well, not in acute distress. HEENT:Head: Normocephalic atraumatic. Oral cavity: Moist, pink tongue eyes: Pallor, icterus present. Pupil PERRLA. EOMI. Neck: Supple, no JVD. No use of accessory muscles. Cardio: S1 and S2 within normal with regular rhythm no murmur no gallop. Respiratory: Vesicular breath sound no crackles no wheezing. Decreased breath sound. Abdominal: Soft, nontender distended bowel sounds present. Genital/Urinary: Deferred Extremities: No sinus no clubbing or edema Neurological: Alert, awake, oriented 3. Deferred. Assessment: 1. Leukocytosis, reactive. Cannot rule out sepsis. 2. Thrombocytopenia. Secondary to cirrhosis 3. End-stage liver disease. Cirrhosis alcohol abuse. 4. Anemia secondary to GI bleed. Plan: Change Zosyn to Rocephin. PRBC transfusion as needed. Thank you, Dr. Mcarthur for involving me taking care of this patient. Signed, Dru Landaverde M.D. 06/18/[id number]
[2018-06-19 02:39] LABS: % BASOPHILS 0.7 % (0.0-2.0); % EOSINOPHILS 0.3 % (0.0-5.0); % LYMPHOCYTES 19.6 % (20.0-50.0); % NEUTROPHILS 67.4 % (40.0-80.0); BASOPHILE ABSOLUTE 0.1 Th/cumm (0-0.2); EOSINOPHILE ABSOLUTE 0.1 Th/cmm (0.1-0.4); HEMOGLOBIN 8.4 gm/dL (12-16); LYMPHOCYTE ABSOLUTE 3.4 Th/cmm (1.5-3.0); MEAN CELL VOLUME 86.7 fl (80-99); MEAN CORPUSCULAR HEMOGLOBIN 30.8 pg (26.0-30.0); MEAN CORPUSCULAR HGB CONC 35.5 pg (28.0-36.0); MEAN PLATELET VOLUME 8.3 fl; MONOCYTE ABSOLUTE 2.1 Th/cmm (0.3-1.0); NEUTROPHILE ABSOLUTE 11.6 Th/cmm (1.8-8.0); PLATELET COUNT 87 Th/cmm (150-400); RED BLOOD COUNT 2.73 Mil/cmm (4.30-5.70)
[2018-06-19 02:40] LABS: HEMATOCRIT 23.7 % (41.0-60); WHITE BLOOD COUNT 17.3 Th/cmm (4.8-10.8)
[2018-06-19 04:27] VITALS: BP 102/73
[2018-06-19] MEDS: D5-0.9%NS 1,000 ML IV SCH ×3 (05:12→18:15)
[2018-06-19] MEDS: Pantoprazole 80 MG in Sodium Chloride 0.9% 100 ML IV SCH ×2 (05:12→15:07)
[2018-06-19 06:32] LABS: % BASOPHILS 0.8 % (0.0-2.0); % EOSINOPHILS 0.6 % (0.0-5.0); % LYMPHOCYTES 16.8 % (20.0-50.0); % NEUTROPHILS 69.8 % (40.0-80.0); BASOPHILE ABSOLUTE 0.1 Th/cumm (0-0.2); EOSINOPHILE ABSOLUTE 0.1 Th/cmm (0.1-0.4); HEMOGLOBIN 8.3 gm/dL (12-16); LYMPHOCYTE ABSOLUTE 2.8 Th/cmm (1.5-3.0); MEAN CELL VOLUME 85.3 fl (80-99); MEAN CORPUSCULAR HGB CONC 35.2 pg (28.0-36.0); NEUTROPHILE ABSOLUTE 11.6 Th/cmm (1.8-8.0); PLATELET COUNT 87 Th/cmm (150-400); RED BLOOD COUNT 2.78 Mil/cmm (4.30-5.70)
[2018-06-19 06:39] LABS: HEMATOCRIT 23.7 % (41.0-60); WHITE BLOOD COUNT 16.6 Th/cmm (4.8-10.8)
[2018-06-19 06:40] LABS: INR 2.01 (0.5-1.4); PROTHROMBIN TIME (TEST) 21.6 SECONDS (9.5-11.5)
[2018-06-19 06:55] LABS: ALB/GLOB RATIO 1.5 (1.0-1.8); ALBUMIN 2.5 gm/dL (4.2-5.5); ANION GAP 12.5 (7.0-16.0); BILIRUBIN,TOTAL 18.5 mg/dL (0.3-1.0); CALCIUM SERUM 7.6 mg/dL (8.6-10.3); CARBON DIOXIDE 14.7 mEq/L (21.0-31.0); CREATININE - SERUM 2.8 mg/dL (0.7-1.3); GFR AFRICAN-AMERICAN 33.7 ml/min (>90); GFR NON AFRICAN-AMERICAN 27.9 ml/min; MAGNESIUM 1.6 mg/dL (1.9-2.7); PHOSPHOROUS 4.4 mg/dL (2.5-5.0); POTASSIUM SERUM 3.2 mEq/L (3.5-5.1); TOTAL PROTEIN,SERUM 4.2 gm/dL (6.0-8.3); URIC ACID 6.4 mg/dL (4.4-7.6)
--- NOTE | 2018-06-19 07:33 | General Progress Note ---
Subjective - Review of Systems Service Date: 06/19/18 Subjective: Patient was seen and evaluated. Resting comfortable. No acute distress. Off Levofed. Will keep NPO for now. K+ 3.2 Hb 8.0 Objective - Results Result Diagrams: 06/19/18 06:10 06/19/18 06:10 Recent Labs: Laboratory Last Values WBC 16.6 Th/cmm (4.8-10.8) H 06/19/18 06:10 RBC 2.78 Mil/cmm (4.30-5.70) L 06/19/18 06:10 Hgb 8.3 gm/dL (12-16) L 06/19/18 06:10 Hct 23.7 % (41.0-60) L 06/19/18 06:10 MCV 85.3 fl (80-99) 06/19/18 06:10 MCH 30.0 pg (26.0-30.0) 06/19/18 06:10 MCHC Differential 35.2 pg (28.0-36.0) 06/19/18 06:10 RDW 14.0 % (11.5-20.0) 06/19/18 06:10 Plt Count 87 Th/cmm (150-400) L 06/19/18 06:10 MPV 8.0 fl 06/19/18 06:10 Add Manual Diff [employer] 06/18/18 15:50 Neutrophils % 69.8 % (40.0-80.0) 06/19/18 06:10 Band Neutrophils % 3 % (0-10) 06/18/18 15:50 Lymphocytes % 16.8 % (20.0-50.0) L 06/19/18 06:10 Monocytes % 12.0 % (2.0-10.0) H 06/19/18 06:10 Eosinophils % 0.6 % (0.0-5.0) 06/19/18 06:10 Basophils % 0.8 % (0.0-2.0) 06/19/18 06:10 Neutrophils (Manual) 62 % (40-80) 06/18/18 15:50 Lymphocytes 31 % (20-50) 06/18/18 15:50 Monocytes 4 % (2-10) 06/18/18 15:50 Eosinophils 1 % (0-5) 06/18/18 12:25 Hypochromia 1+ 06/18/18 03:50 Platelet Estimate SLIGHT DECREASED (NORMAL) 06/18/18 15:50 Polychromasia 1+ 06/18/18 03:50 Poikilocytosis 1+ 06/18/18 03:50 [place] Cells 1+ 06/18/18 03:50 Schistocytes 1+ 06/18/18 03:50 PT 21.6 SECONDS (9.5-11.5) H 06/19/18 06:10 INR 2.01 (0.5-1.4) H 06/19/18 06:10 PTT (Actin FS) 54.6 SECONDS (26.0-38.0) H 06/19/18 06:10 Sodium 140 mEq/L (136-145) 06/19/18 06:10 Potassium 3.2 mEq/L (3.5-5.1) L 06/19/18 06:10 Chloride 116 mEq/L (98-107) H 06/19/18 06:10 Carbon Dioxide 14.7 mEq/L (21.0-31.0) L 06/19/18 06:10 Anion Gap 12.5 (7.0-16.0) 06/19/18 06:10 BUN 41 mg/dL (7-25) H 06/19/18 06:10 Creatinine 2.8 mg/dL (0.7-1.3) H 06/19/18 06:10 Est GFR ( Amer) 33.7 ml/min (>90) 06/19/18 06:10 Est GFR (Non-Af Amer) 27.9 ml/min 06/19/18 06:10 BUN/Creatinine Ratio 14.6 06/19/18 06:10 Glucose 122 mg/dL (70-105) H 06/19/18 06:10 Whole Bld Lactic Acid 1.33 mmol/L (0.60-1.99) 06/19/18 06:10 Uric Acid 6.4 mg/dL (4.4-7.6) 06/19/18 06:10 Calcium 7.6 mg/dL (8.6-10.3) L 06/19/18 06:10 Phosphorus 4.4 mg/dL (2.5-5.0) 06/19/18 06:10 Magnesium 1.6 mg/dL (1.9-2.7) L 06/19/18 06:10 Total Bilirubin 18.5 mg/dL (0.3-1.0) H 06/19/18 06:10 AST 66 U/L (13-39) H 06/19/18 06:10 ALT 14 U/L (7-52) 06/19/18 06:10 Alkaline Phosphatase 108 U/L (34-104) H 06/19/18 06:10 Ammonia 55 umol/L (16-53) H 06/18/18 03:50 Troponin I 0.02 ng/mL (0.01-0.05) 06/18/18 03:50 Total Protein 4.2 gm/dL (6.0-8.3) L 06/19/18 06:10 Albumin 2.5 gm/dL (4.2-5.5) L 06/19/18 06:10 Globulin 1.7 gm/dL 06/19/18 06:10 Albumin/Globulin Ratio 1.5 (1.0-1.8) 06/19/18 06:10 Amylase 57 U/L (29-103) 06/18/18 03:50 Lipase 132 U/L (11-82) H 06/18/18 03:50 TSH 3.57 uIU/ml (0.34-5.60) 06/18/18 03:50 Ethyl Alcohol < 10 mg/dL (0-10) 06/18/18 03:50 Blood Type O POSITIVE 06/18/18 03:50 Antibody Screen NEGATIVE 06/18/18 03:50 Crossmatch See Detail 06/18/18 03:50 - Physical Exam Vitals and I&O: Vital Signs Temp 98.2 F 06/19/18 04:00 Pulse 95 06/19/18 06:00 Resp 14 06/19/18 06:00 BP 116/71 06/19/18 06:00 Pulse Ox 100 06/19/18 06:00 Intake & Output 06/18/18 06/19/18 06/19/18 18:59 06:59 18:59 Intake Total 2422.263 2154.5 Output Total 400 920 Balance 2022.263 1234.5 Weight (lbs) 97.154 kg 96.162 kg Intake: Intake, IV Amount 315.679 5498.5 D5-0.9%Ns 1,000 ml @ 150 1920 mls/hr IV .Q6H40M ON LICENSE OF [facility] Rx# :[id number] Norepinephrine 4 mg In 72.263 Dextrose 5% 250 ml @ Per Protocol IV TITR PRN Rx#: [id number] Pantoprazole 80 mg In 184.5 Sodium Chloride 0.9% 100 ml @ 10 mls/hr IV Q10H ON LICENSE OF [facility] Rx#:[id number] Piperacillin Sodium/ 150 50 Tazobact 3.375 gm In Sodium Chloride 0.9% 50 ml @ 100 mls/hr IV Q6HR ON LICENSE OF [facility] Rx#:[id number] Oral 0 Blood Product 2200 Output: Urine 400 620 Stool 300 Other: # Bowel Movements 3 3 Stool Characteristics Bloody Bloody Weight Source Bedscale Bedscale Active Medications: Current Medications Piperacillin Sod/Tazobactam (Sod 3.375 gm/ Sodium Chloride) 50 mls @ 100 mls/ hr IV Q6HR ON LICENSE OF [facility] Stop: 08/17/18 07:14 Last Admin: 06/19/18 05:12 Dose: 100 mls/hr Norepinephrine Bitartrate 4 mg (/ Dextrose) 254 mls @ 0 mls/hr IV TITR PRN; Protocol PRN Reason: BP MAINTENANCE (PER PROTOCOL) Stop: 08/17/18 07:59 Last Titration: 06/18/18 15:19 Dose: 0 mcg/min, 0 mls/hr Pantoprazole Sodium 80 mg/ (Sodium Chloride) 100 mls @ 10 mls/hr IV Q10H ON LICENSE OF [facility] Stop: 08/17/18 09:29 Last Admin: 06/19/18 05:12 Dose: 10 mls/hr Octreotide Acetate 1,250 mcg/ (Sodium Chloride) 252.5 mls @ 0 mls/hr IV .Q0M [facility]; Protocol Stop: 08/17/18 09:29 Last Admin: 06/18/18 18:01 Dose: 10 mls/hr Dextrose/Sodium Chloride (D5-0.9%Ns) 1,000 mls @ 150 mls/hr IV .Q6H40M [facility] Stop: 08/17/18 15:29 Last Admin: 06/19/18 05:12 Dose: 150 mls/hr Lorazepam (Ativan) 1 mg IVP Q4HR PRN; Protocol PRN Reason: Agitation Stop: 08/17/18 06:55 Miscellaneous (Zosyn Iv Per Pharmacy) 1 ea MC PRN PRN PRN Reason: PROTOCOL Stop: 08/17/18 06:49 Morphine Sulfate (Morphine) 2 mg IVP Q4HR PRN PRN Reason: Pain (Moderate) Stop: 08/17/18 06:53 Last Admin: 06/18/18 23:17 Dose: 2 mg Pantoprazole Sodium (Protonix) 40 mg IVP DAILY [facility] Stop: 08/17/18 08:59 Last Admin: 06/18/18 08:17 Dose: 40 mg General: Alert, Oriented x3 HEENT: Atraumatic, PERRLA, EOMI Neck: JVD, no Supple Cardiovascular: Regular rate, Normal S1, Normal S2 Lungs: Clear to auscultation Abdomen: Hepatomegaly, Distended Extremities: no Clubbing, no Cyanosis, no Edema Assessment/Plan - Assessment Assessment: GI bleeding sepsis h/o alcohol abuse heaptic failure secondary to ETOH abuse severe anemia ascites leukocytosis thrombocytopenia acute on chronic renal failure hypokalemia cirrhosis hypomagnesemia - Plan Plan: GI consult type and screen for 2 units packed RBC's and transfuse ID consult lactic acid level renal consult hepatitis panel IV Protonix PT/INR repeat CBC,CMP tomorrow AM
--- NOTE | 2018-06-19 07:40 | Consultation ---
DATE OF CONSULTATION: 06/18/2018 REASON FOR CONSULTATION: Worsening kidney function, electrolyte imbalance, and fluid management. HISTORY OF PRESENT ILLNESS: This is a 32-year-old male with past medical history of alcoholic cirrhosis, who came in because of bright red blood per rectum. Two weeks prior to admission, the patient was admitted at [facility] because of worsening ascites and weakness. He had a series of paracentesis done and was transfused. He also had a hemorrhoidectomy. A few hours prior to admission, he developed acute massive bright red blood per rectum. He immediately was brought to the Emergency Room. His hemoglobin/hematocrit were 6.8/19.4. He was transfused 2 units packed RBC. However, he continues to have profuse bleeding. Repeat hemoglobin/hematocrit turned out to be 4.9/13.7. He had another 7 units of packed RBC as well as 4 units of FFP. EGD done showed moderate gastroesophageal junction/cardia varices, but there was no active bleeding. Flex sigmoidoscopy showed bleeding around anorectal ulcer, which is a previous hemorrhoid banding site. He had epinephrine injection, cardia, Endoclipping x2 as well as bipolar electrocautery. His latest hemoglobin/hematocrit turned out to be 6.5/19. He was informed that he had chronic kidney disease 3 months ago. He was admitted this time around with a BUN/creatinine of 50/3.3. He does not have any active nausea and vomiting. PAST MEDICAL HISTORY: 1. He was diagnosed to have alcohol cirrhosis/fatty liver last 11/2017. 2. He has had several episodes of paracentesis. 3. History of alcohol abuse. 4. Severe malnutrition. PAST SURGICAL HISTORY: Status post hemorrhoidectomy. CURRENT MEDICATIONS: He is currently on morphine, norepinephrine, octreotide, pantoprazole, and Zosyn. ALLERGIES: No known drug allergies. SOCIAL HISTORY: He smokes occasionally. He used to drink heavily, but quit 2 months ago. 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 FAMILY HISTORY: Noncontributory to present illness. REVIEW OF SYSTEMS: GENERAL: He has continuous weakness, appetite has been very poor, no fever or chills. HEENT: No mention of headaches nor dizziness. CARDIORESPIRATORY: No chest pain, palpitations, diaphoresis, or cough. GASTROINTESTINAL: He did have bright red blood per rectum. However, he still has some abdominal discomfort. No nausea and vomiting nor constipation. HEMATOLOGIC: He has severe anemia due to chronic disease. GENITOURINARY: History of kidney failure, still has good urine output. NEUROPSYCH: No syncopal episode nor seizure activity. PHYSICAL EXAMINATION: GENERAL: The patient is quite weak, but arousable, able to answer simple questions. VITAL SIGNS: Blood pressure now is 134/83, pulse 94, and afebrile. SKIN: Very poor turgor, warm. He has jaundice. He also has tattoos, especially in his upper extremities. HEAD: Normocephalic, atraumatic. EYES: Extraocular muscles intact. Pupils equal, round, reactive to light and accommodates. Icteric sclerae. Pale conjunctivae. NOSE: Midline nasal septum. MOUTH: Dry mucosa on face mask. NECK: Supple, no adenopathy, no thyromegaly, no JVD. Trachea palpated on the midline. CHEST AND CARDIOVASCULAR: S1, S2. No rub, murmur, no gallop appreciated. Point of maximal impulse fifth intercostal space, left midclavicular line. No abdominal or femoral bruits appreciated. LUNGS: Equal expansion. No use of accessory muscles. No supraclavicular retractions. Decreased breath sounds, but clear to auscultation without any wheeze. ABDOMEN: Presence of ascites with shifting dullness, tympanitic on percussion, tenderness on palpation. No bruits either diastolic or systolic. RECTAL: The patient refused because of his massive bleeding. GENITOURINARY: Normal appearing male genitalia with indwelling Pryor catheter. MUSCULOSKELETAL: No effusions present in his joints, but unable to assess his range of motion. NEUROLOGIC: The patient is alert, verbal, motor is 5/5. Cranial nerves III through XII intact. Sensory intact. LABORATORY DATA AND STUDIES: Did reveal white count 23.3, hemoglobin 6.5, hematocrit 19, and platelets 89. PT is 28.3. INR 2.59. Sodium 134, potassium 4, chloride 108, bicarbonate 18, BUN 50, creatinine 3.3, calcium 8.1, total bilirubin 24.6, AST 83, ALT 16, alkaline phosphatase 165. Ammonia 55 and albumin 2.7. TSH 3.57. Lipase 132. Ethyl alcohol less than 10. IMPRESSION: 1. Acute kidney injury on chronic kidney disease, stage IV. Chronic kidney disease may be secondary to chronic interstitial nephritis secondary to exposure to multiple nephrotoxic medications or even drugs. Acute kidney injury is initially prerenal in nature. The patient suddenly had massive bleeding. He also has not been eating appropriately with diminished oral intake and replenishment of fluid losses. He has his series of paracenteses with loss of volume leading to hypotension. This could cause an increase in his splanchnic circulation and does cause a decrease in effective circulating volume. His massive bleeding this morning could be going on for several days eventually lead to shock and his prerenal azotemia progressed to acute tubular injury. He could also have the possibility of hepatorenal syndrome, but I doubt this because of his history of chronic kidney disease. 2. Hypovolemic shock. 3. Acute lower gastrointestinal bleed secondary to hemorrhoidal banding site. 4. Alcohol cirrhosis. 5. Alcohol abuse. 6. Szucv-[id number] anemia secondary to lower gastrointestinal bleed. 7. Leukocytosis, possible spontaneous bacterial peritonitis. 8. Thrombocytopenia with coagulopathy secondary to cirrhosis. 9. Severe malnutrition. PLAN: 1. IV fluids. 2. Pressors. 3. UA, C and S. 4. Urine sodium, eosinophils, creatinine, and microalbumin to creatinine ratio. 5. Renal ultrasound. 6. Follow up blood culture x2. 7. Hepatitis panel. 8. Follow up calcium levels due to massive transfusion. 9. Consider midodrine once the patient can take oral meds. 10. May eventually require tips in the future. Thank you, Dr. Mcarthur for this consult. I will follow the patient closely with you. [facility]# [id number]
[2018-06-19] MEDS: KCL 20mEq/100mL Premix 20 MEQ/100 ML PIGGYBACK IV SCH ×2 (08:00→10:33)
[2018-06-19] MEDS: Vancomycin HCl 1.75 GM in Sodium Chloride 0.9% 500 ML IV SCH (09:08)
[2018-06-19] MEDS: Morphine Sulfate 2 mg/mL 1mL Syr IVP PRN ×2 (09:35→20:10)
--- NOTE | 2018-06-19 09:49 | GI Progress Note ---
Subjective - Review of Systems Service Date: 06/19/18 Subjective: Some small oozing from the rectum, no massive bleeding Objective - Results Result Diagrams: 06/19/18 06:10 06/19/18 06:10 Recent Labs: Laboratory Last Values WBC 16.6 Th/cmm (4.8-10.8) H 06/19/18 06:10 RBC 2.78 Mil/cmm (4.30-5.70) L 06/19/18 06:10 Hgb 8.3 gm/dL (12-16) L 06/19/18 06:10 Hct 23.7 % (41.0-60) L 06/19/18 06:10 MCV 85.3 fl (80-99) 06/19/18 06:10 MCH 30.0 pg (26.0-30.0) 06/19/18 06:10 MCHC Differential 35.2 pg (28.0-36.0) 06/19/18 06:10 RDW 14.0 % (11.5-20.0) 06/19/18 06:10 Plt Count 87 Th/cmm (150-400) L 06/19/18 06:10 MPV 8.0 fl 06/19/18 06:10 Add Manual Diff [facility] [employer] 06/18/18 15:50 Neutrophils % 69.8 % (40.0-80.0) 06/19/18 06:10 Band Neutrophils % 3 % (0-10) 06/18/18 15:50 Lymphocytes % 16.8 % (20.0-50.0) L 06/19/18 06:10 Monocytes % 12.0 % (2.0-10.0) H 06/19/18 06:10 Eosinophils % 0.6 % (0.0-5.0) 06/19/18 06:10 Basophils % 0.8 % (0.0-2.0) 06/19/18 06:10 Neutrophils (Manual) 62 % (40-80) 06/18/18 15:50 Lymphocytes 31 % (20-50) 06/18/18 15:50 Monocytes 4 % (2-10) 06/18/18 15:50 Eosinophils 1 % (0-5) 06/18/18 12:25 Hypochromia 1+ 06/18/18 03:50 Platelet Estimate SLIGHT DECREASED (NORMAL) 06/18/18 15:50 Polychromasia 1+ 06/18/18 03:50 Poikilocytosis 1+ 06/18/18 03:50 [place] Cells 1+ 06/18/18 03:50 Schistocytes 1+ 06/18/18 03:50 PT 21.6 SECONDS (9.5-11.5) H 06/19/18 06:10 INR 2.01 (0.5-1.4) H 06/19/18 06:10 PTT (Actin FS) 54.6 SECONDS (26.0-38.0) H 06/19/18 06:10 Sodium 140 mEq/L (136-145) 06/19/18 06:10 Potassium 3.2 mEq/L (3.5-5.1) L 06/19/18 06:10 Chloride 116 mEq/L (98-107) H 06/19/18 06:10 Carbon Dioxide 14.7 mEq/L (21.0-31.0) L 06/19/18 06:10 Anion Gap 12.5 (7.0-16.0) 06/19/18 06:10 BUN 41 mg/dL (7-25) H 06/19/18 06:10 Creatinine 2.8 mg/dL (0.7-1.3) H 06/19/18 06:10 Est GFR ( Amer) 33.7 ml/min (>90) 06/19/18 06:10 Est GFR (Non-Af Amer) 27.9 ml/min 06/19/18 06:10 BUN/Creatinine Ratio 14.6 06/19/18 06:10 Glucose 122 mg/dL (70-105) H 06/19/18 06:10 Whole Bld Lactic Acid 1.33 mmol/L (0.60-1.99) 06/19/18 06:10 Uric Acid 6.4 mg/dL (4.4-7.6) 06/19/18 06:10 Calcium 7.6 mg/dL (8.6-10.3) L 06/19/18 06:10 Phosphorus 4.4 mg/dL (2.5-5.0) 06/19/18 06:10 Magnesium 1.6 mg/dL (1.9-2.7) L 06/19/18 06:10 Total Bilirubin 18.5 mg/dL (0.3-1.0) H 06/19/18 06:10 AST 66 U/L (13-39) H 06/19/18 06:10 ALT 14 U/L (7-52) 06/19/18 06:10 Alkaline Phosphatase 108 U/L (34-104) H 06/19/18 06:10 Ammonia 55 umol/L (16-53) H 06/18/18 03:50 Troponin I 0.02 ng/mL (0.01-0.05) 06/18/18 03:50 Total Protein 4.2 gm/dL (6.0-8.3) L 06/19/18 06:10 Albumin 2.5 gm/dL (4.2-5.5) L 06/19/18 06:10 Globulin 1.7 gm/dL 06/19/18 06:10 Albumin/Globulin Ratio 1.5 (1.0-1.8) 06/19/18 06:10 Amylase 57 U/L (29-103) 06/18/18 03:50 Lipase 132 U/L (11-82) H 06/18/18 03:50 TSH 3.57 uIU/ml (0.34-5.60) 06/18/18 03:50 Ethyl Alcohol < 10 mg/dL (0-10) 06/18/18 03:50 Blood Type O POSITIVE 06/18/18 03:50 Antibody Screen NEGATIVE 06/18/18 03:50 Crossmatch See Detail 06/18/18 03:50 - Physical Exam Vitals and I&O: Vital Signs Temp 98.2 F 06/19/18 04:00 Pulse 93 06/19/18 06:50 Resp 13 06/19/18 06:50 BP 116/71 06/19/18 06:00 Pulse Ox 100 06/19/18 06:50 Intake & Output 06/18/18 06/19/18 06/19/18 18:59 06:59 18:59 Intake Total 2422.263 2154.5 Output Total 400 920 Balance 202.263 1234.5 Weight (lbs) 97.154 kg 96.162 kg Intake: Intake, IV Amount 407.319 2980.5 D5-0.9%Ns 1,000 ml @ 150 1920 mls/hr IV .Q6H40M [facility] Rx# :[id number] Norepinephrine 4 mg In 72.263 Dextrose 5% 250 ml @ Per Protocol IV TITR PRN Rx#: [id number] Pantoprazole 80 mg In 184.5 Sodium Chloride 0.9% 100 ml @ 10 mls/hr IV Q10H [facility] Rx#:[id number] Piperacillin Sodium/ 150 50 Tazobact 3.375 gm In Sodium Chloride 0.9% 50 ml @ 100 mls/hr IV Q6HR [facility] Rx#:[id number] Oral 0 Blood Product 2200 Output: Urine 400 620 Stool 300 Other: # Bowel Movements 3 3 Stool Characteristics Bloody Bloody Weight Source Bedscale Bedscale Active Medications: Current Medications Piperacillin Sod/Tazobactam (Sod 3.375 gm/ Sodium Chloride) 50 mls @ 100 mls/ hr IV Q6HR [facility] Stop: 08/17/18 07:14 Last Admin: 06/19/18 05:12 Dose: 100 mls/hr Norepinephrine Bitartrate 4 mg (/ Dextrose) 254 mls @ 0 mls/hr IV TITR PRN; Protocol PRN Reason: BP MAINTENANCE (PER PROTOCOL) Stop: 08/17/18 07:59 Last Titration: 06/18/18 15:19 Dose: 0 mcg/min, 0 mls/hr Pantoprazole Sodium 80 mg/ (Sodium Chloride) 100 mls @ 10 mls/hr IV Q10H [facility] Stop: 08/17/18 09:29 Last Admin: 06/19/18 05:12 Dose: 10 mls/hr Octreotide Acetate 1,250 mcg/ (Sodium Chloride) 252.5 mls @ 0 mls/hr IV .Q0M [facility]; Protocol Stop: 08/17/18 09:29 Last Admin: 06/18/18 18:01 Dose: 10 mls/hr Dextrose/Sodium Chloride (D5-0.9%Ns) 1,000 mls @ 150 mls/hr IV .Q6H40M [facility] Stop: 08/17/18 15:29 Last Admin: 06/19/18 05:12 Dose: 150 mls/hr Potassium Chloride (Potassium Chloride) 20 meq in 100 mls @ 50 mls/hr IV Q2H [facility] Stop: 06/19/18 11:44 Last Admin: 06/19/18 08:00 Dose: 50 mls/hr Vancomycin HCl 1.75 gm/ Sodium (Chloride) 500 mls @ 250 mls/hr IV Q24H [facility] Stop: 08/18/18 08:59 Last Admin: 06/19/18 09:08 Dose: 250 mls/hr Lorazepam (Ativan) 1 mg IVP Q4HR PRN; Protocol PRN Reason: Agitation Stop: 08/17/18 06:55 Miscellaneous (Zosyn Iv Per Pharmacy) 1 ea PRN PRN PRN Reason: PROTOCOL Stop: 08/17/18 06:49 Miscellaneous (Vancomycin Iv Per Pharmacy) 1 ea PRN PRN PRN Reason: PROTOCOL Stop: 08/18/18 07:37 Morphine Sulfate (Morphine) 2 mg IVP Q4HR PRN PRN Reason: Pain (Moderate) Stop: 08/17/18 06:53 Last Admin: 06/18/18 23:17 Dose: 2 mg Pantoprazole Sodium (Protonix) 40 mg IVP DAILY [facility] Stop: 08/17/18 08:59 Last Admin: 06/19/18 09:09 Dose: 40 mg Phytonadione (Vitamin K) 10 mg IM X1 ONE Stop: 06/19/18 09:38 General: Alert, Oriented x3 HEENT: Atraumatic, PERRLA, EOMI Neck: JVD, no Supple Cardiovascular: Regular rate Abdomen: Bowel sounds, Soft, Hepatomegaly, Distended, no Rebound, no Mass, no Guarding Extremities: no Clubbing, no Cyanosis, no Edema Assessment/Plan - Assessment Assessment: # Decompensated cirrhosis # 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 EGD showed non bleeding small to medium gastric varices and gastritis. Flex sig showed large amount of blood clot, large rectal ulcer actively bleeding. The ulcer was injected with epi, clippsed, and then cauterized with hemostasis achieved. Pt seems to have slowed down with bleeding, possibly stopped. If he rebleeds, it may be prudent to transfer to tertiary care as a TIPS procedure would be necessary for this type of portal hypertensive related bleeding that has failed endotherapy twice already. In terms of the cirrhosis, he is decompensated by ascites and varices. INR is elevated, and we will try vitamin K although this may not help that much. Plan: - keep NPO today - cont monitor hgb, transfuse to keep hgb > 8 - vit K 10mg today, then 5mg for 2 days - if rebleeds, needs surgical consult and consideration to transfer to a facility capable of performing TIPS with interventional radiology - will need repeat CT scan in 2-3 days to eval for resolution of possible microperf of the rectum - hold off on paracentesis until the bleeding issue is resolved
[2018-06-19 11:51] LABS: URINE MICROSCOPIC INDICATED? YES; URINE SOURCE FOLEY PORT
[2018-06-19 11:52] LABS: URINE BILIRUBIN LARGE (NEGATIVE); URINE BLOOD LARGE (NEGATIVE); URINE GLUCOSE (UA) NEGATIVE (NEGATIVE); URINE KETONE NEGATIVE (NEGATIVE); URINE LEUKOCYTE ESTERASE TRACE (NEGATIVE); URINE NITRATE NEGATIVE (NEGATIVE); URINE PH 5.5 (4.6 - 8.0); URINE PROTEIN TRACE mg/dL (NEGATIVE); URINE UROBILINOGEN 0.2 E.U./dL (0.2 - 1.0)
[2018-06-19 11:56] LABS: URINE CLARITY HAZY (CLEAR); URINE COLOR ORANGE
[2018-06-19 12:04] LABS: URINE ICTOTEST POSITIVE (NEGATIVE)
[2018-06-19 12:06] LABS: URINE BACTERIA 1+ /hpf (NONE SEEN); URINE EPITHELIAL CELLS FEW /lpf (FEW)
[2018-06-19 12:07] LABS: URINE FINE GRANULAR CAST 0-2 /lpf (NONE SEEN)
[2018-06-19 12:29] LABS: EOSINOPHIL SMEAR SOURCE URINE; EOSINOPHILS SMEAR COUNT NONE SEEN (NONE SEEN)
--- NOTE | 2018-06-19 12:38 | Diagnostic Imaging Report ---
Renal ultrasound HISTORY: Abnormal renal function test The right kidney is somewhat increased in size (13.9 x 6.7 x 7.2 cm). Slight increase in cortical echogenicity. No focal lesions or hydronephrosis. The left kidney is also somewhat increased in size (13.4 x 6.7 6.5 cm). Slight increase in cortical echogenicity. No focal lesions or hydronephrosis. Evaluation of the urinary bladder limited due to incomplete distention. Ascites seen within the lower pelvis. IMPRESSION: 1. Increased renal size is along with an increase in cortical echogenicity bilaterally. The significance should be correlated with renal function tests. 2. No hydronephrosis 3. Ascites
--- NOTE | 2018-06-19 13:03 | Infectious Disease Prog Note ---
Infectious Disease Subjective - Review of Systems Service Date: 06/19/18 Subjective: There is no new change, no fever. Infectious Disease Objective - Results Result Diagrams: 06/19/18 06:10 06/19/18 06:10 Recent Labs: Laboratory Last Values WBC 16.6 Th/cmm (4.8-10.8) H 06/19/18 06:10 RBC 2.78 Mil/cmm (4.30-5.70) L 06/19/18 06:10 Hgb 8.3 gm/dL (12-16) L 06/19/18 06:10 Hct 23.7 % (41.0-60) L 06/19/18 06:10 MCV 85.3 fl (80-99) 06/19/18 06:10 MCH 30.0 pg (26.0-30.0) 06/19/18 06:10 MCHC Differential 35.2 pg (28.0-36.0) 06/19/18 06:10 RDW 14.0 % (11.5-20.0) 06/19/18 06:10 Plt Count 87 Th/cmm (150-400) L 06/19/18 06:10 MPV 8.0 fl 06/19/18 06:10 Add Manual Diff [facility] [employer] 06/18/18 15:50 Neutrophils % 69.8 % (40.0-80.0) 06/19/18 06:10 Band Neutrophils % 3 % (0-10) 06/18/18 15:50 Lymphocytes % 16.8 % (20.0-50.0) L 06/19/18 06:10 Monocytes % 12.0 % (2.0-10.0) H 06/19/18 06:10 Eosinophils % 0.6 % (0.0-5.0) 06/19/18 06:10 Basophils % 0.8 % (0.0-2.0) 06/19/18 06:10 Neutrophils (Manual) 62 % (40-80) 06/18/18 15:50 Lymphocytes 31 % (20-50) 06/18/18 15:50 Monocytes 4 % (2-10) 06/18/18 15:50 Eosinophils 1 % (0-5) 06/18/18 12:25 Hypochromia 1+ 06/18/18 03:50 Platelet Estimate SLIGHT DECREASED (NORMAL) 06/18/18 15:50 Polychromasia 1+ 06/18/18 03:50 Poikilocytosis 1+ 06/18/18 03:50 [place] Cells 1+ 06/18/18 03:50 Schistocytes 1+ 06/18/18 03:50 Eos Smear Source URINE 06/19/18 04:00 Eos Smear Total Cells NONE SEEN (NONE SEEN) 06/19/18 04:00 PT 21.6 SECONDS (9.5-11.5) H 06/19/18 06:10 INR 2.01 (0.5-1.4) H 06/19/18 06:10 PTT (Actin FS) 54.6 SECONDS (26.0-38.0) H 06/19/18 06:10 Sodium 140 mEq/L (136-145) 06/19/18 06:10 Potassium 3.2 mEq/L (3.5-5.1) L 06/19/18 06:10 Chloride 116 mEq/L (98-107) H 06/19/18 06:10 Carbon Dioxide 14.7 mEq/L (21.0-31.0) L 06/19/18 06:10 Anion Gap 12.5 (7.0-16.0) 06/19/18 06:10 BUN 41 mg/dL (7-25) H 06/19/18 06:10 Creatinine 2.8 mg/dL (0.7-1.3) H 06/19/18 06:10 Est GFR ( Amer) 33.7 ml/min (>90) 06/19/18 06:10 Est GFR (Non-Af Amer) 27.9 ml/min 06/19/18 06:10 BUN/Creatinine Ratio 14.6 06/19/18 06:10 Glucose 122 mg/dL (70-105) H 06/19/18 06:10 Whole Bld Lactic Acid 1.33 mmol/L (0.60-1.99) 06/19/18 06:10 Uric Acid 6.4 mg/dL (4.4-7.6) 06/19/18 06:10 Calcium 7.6 mg/dL (8.6-10.3) L 06/19/18 06:10 Phosphorus 4.4 mg/dL (2.5-5.0) 06/19/18 06:10 Magnesium 1.6 mg/dL (1.9-2.7) L 06/19/18 06:10 Total Bilirubin 18.5 mg/dL (0.3-1.0) H 06/19/18 06:10 AST 66 U/L (13-39) H 06/19/18 06:10 ALT 14 U/L (7-52) 06/19/18 06:10 Alkaline Phosphatase 108 U/L (34-104) H 06/19/18 06:10 Ammonia 55 umol/L (16-53) H 06/18/18 03:50 Troponin I 0.02 ng/mL (0.01-0.05) 06/18/18 03:50 Total Protein 4.2 gm/dL (6.0-8.3) L 06/19/18 06:10 Albumin 2.5 gm/dL (4.2-5.5) L 06/19/18 06:10 Globulin 1.7 gm/dL 06/19/18 06:10 Albumin/Globulin Ratio 1.5 (1.0-1.8) 06/19/18 06:10 Amylase 57 U/L (29-103) 06/18/18 03:50 Lipase 132 U/L (11-82) H 06/18/18 03:50 TSH 3.57 uIU/ml (0.34-5.60) 06/18/18 03:50 Urine Source [place] 06/19/18 11:45 Urine Color ORANGE 06/19/18 11:45 Urine Clarity HAZY (CLEAR) 06/19/18 11:45 Urine pH 5.5 (4.6 - 8.0) 06/19/18 11:45 Ur Specific [place] 1.015 (1.005-1.030) 06/19/18 11:45 Urine Protein TRACE mg/dL (NEGATIVE) 06/19/18 11:45 Urine Glucose (UA) NEGATIVE mg/dL (NEGATIVE) 06/19/18 11:45 Urine Ketones NEGATIVE mg/dL (NEGATIVE) 06/19/18 11:45 Urine Blood LARGE (NEGATIVE) H 06/19/18 11:45 Urine Nitrate NEGATIVE (NEGATIVE) 06/19/18 11:45 Urine Bilirubin LARGE (NEGATIVE) H 06/19/18 11:45 Urine Ictotest POSITIVE (NEGATIVE) H 06/19/18 11:45 Urine Urobilinogen 0.2 E.U./dL (0.2 - 1.0) 06/19/18 11:45 Ur Leukocyte Esterase TRACE (NEGATIVE) H 06/19/18 11:45 Urine RBC 5-10 /hpf (0-5) H 06/19/18 11:45 Urine WBC 2-5 /hpf (0-5) 06/19/18 11:45 Ur Epithelial Cells FEW /lpf (FEW) 06/19/18 11:45 Calcium Oxalate Crystal FEW /hpf 06/19/18 11:45 Urine Bacteria 1+ /hpf (NONE SEEN) H 06/19/18 11:45 Fine Granular Casts 0-2 /lpf (NONE SEEN) H 06/19/18 11:45 Coarse Granular Casts 2-5 /lpf (NONE SEEN) H 06/19/18 11:45 Ur Random Sodium 27 mmol/L 06/19/18 04:00 Urine Creatinine 82.0 mg/dl (39.0-259.0) 06/19/18 04:00 Ethyl Alcohol < 10 mg/dL (0-10) 06/18/18 03:50 Blood Type O POSITIVE 06/18/18 03:50 Antibody Screen NEGATIVE 06/18/18 03:50 Crossmatch See Detail 06/18/18 03:50 - Physical Exam Vitals and I&O: Vital Signs Temp 97.8 F 06/19/18 12:00 Pulse 85 06/19/18 12:00 Resp 11 06/19/18 12:00 BP 109/62 06/19/18 12:00 Pulse Ox 100 06/19/18 12:00 Intake & Output 06/18/18 06/19/18 06/19/18 18:59 06:59 18:59 Intake Total 2422.263 2204.5 755 Output Total 400 920 Balance 2022.263 1284.5 755 Weight (lbs) 97.154 kg 96.162 kg Intake: Intake, IV Amount 057.119 0612.5 755 D5-0.9%Ns 1,000 ml @ 150 1920 mls/hr IV .Q6H40M [facility] Rx# :[id number] KCL 20mEq/100mL Premix 20 100 meq In 100 ml @ 50 mls/ hr IV Q2H [facility] Rx#: [id number] Levetiracetam 500 mg In 105 Sodium Chloride 0.9% 100 ml @ 100 mls/hr IV Q12H [facility] Rx#:[id number] Norepinephrine 4 mg In 72.263 Dextrose 5% 250 ml @ Per Protocol IV TITR PRN Rx#: [id number] Pantoprazole 80 mg In 184.5 Sodium Chloride 0.9% 100 ml @ 10 mls/hr IV Q10H [facility] Rx#:[id number] Piperacillin Sodium/ 150 100 50 Tazobact 3.375 gm In Sodium Chloride 0.9% 50 ml @ 100 mls/hr IV Q6HR [facility] Rx#:[id number] Vancomycin HCl 1.75 gm In 500 Sodium Chloride 0.9% 500 ml @ 250 mls/hr IV Q24H [facility] Rx#:[id number] Oral 0 Blood Product 2200 Output: Urine 400 620 Stool 300 Other: # Bowel Movements 3 3 Stool Characteristics Bloody Bloody Bloody Weight Source Bedscale Bedscale Active Medications: Current Medications Piperacillin Sod/Tazobactam (Sod 3.375 gm/ Sodium Chloride) 50 mls @ 100 mls/ hr IV Q6HR [facility] Stop: 08/17/18 07:14 Last Infusion: 06/19/18 12:25 Dose: Infused Norepinephrine Bitartrate 4 mg (/ Dextrose) 254 mls @ 0 mls/hr IV TITR PRN; Protocol PRN Reason: BP MAINTENANCE (PER PROTOCOL) Stop: 08/17/18 07:59 Last Titration: 06/18/18 15:19 Dose: 0 mcg/min, 0 mls/hr Pantoprazole Sodium 80 mg/ (Sodium Chloride) 100 mls @ 10 mls/hr IV Q10H [facility] Stop: 08/17/18 09:29 Last Admin: 06/19/18 05:12 Dose: 10 mls/hr Octreotide Acetate 1,250 mcg/ (Sodium Chloride) 252.5 mls @ 0 mls/hr IV .Q0M [facility]; Protocol Stop: 08/17/18 09:29 Last Admin: 06/18/18 18:01 Dose: 10 mls/hr Dextrose/Sodium Chloride (D5-0.9%Ns) 1,000 mls @ 150 mls/hr IV .Q6H40M [facility] Stop: 08/17/18 15:29 Last Admin: 06/19/18 05:12 Dose: 150 mls/hr Vancomycin HCl 1.75 gm/ Sodium (Chloride) 500 mls @ 250 mls/hr IV Q24H [facility] Stop: 08/18/18 08:59 Last Infusion: 06/19/18 11:10 Dose: Infused Levetiracetam 500 mg/ Sodium (Chloride) 105 mls @ 100 mls/hr IV Q12H [facility] Stop: 08/18/18 10:59 Last Infusion: 06/19/18 12:40 Dose: Infused Lorazepam (Ativan) 1 mg IVP Q4HR PRN; Protocol PRN Reason: Agitation Stop: 08/17/18 06:55 Miscellaneous (Zosyn Iv Per Pharmacy) 1 ea PRN PRN PRN Reason: PROTOCOL Stop: 08/17/18 06:49 Miscellaneous (Vancomycin Iv Per Pharmacy) 1 [facility] PRN PRN PRN Reason: PROTOCOL Stop: 08/18/18 07:37 Morphine Sulfate (Morphine) 2 mg IVP Q4HR PRN PRN Reason: Pain (Moderate) Stop: 08/17/18 06:53 Last Admin: 06/19/18 09:35 Dose: 2 mg General: no acute distress, well developed, well nourished HEENT: atraumatic, normocephalic, PERRLA, EOMI Neck: supple, no thyromegaly Cardiovascular: S1S2, regular Lungs: clear to auscultation bilaterally, clear to percussion Abdomen: soft, distended, no tender Extremities: no cyanosis, no clubbing, no edema Neurological: awake, alert, oriented Skin: intact Infectious Disease Assmt/Plan - Assessment Assessment: 1. Leukocytosis, reactive. Cannot rule out sepsis. 2. Thrombocytopenia. Secondary to cirrhosis 3. End-stage liver disease. Cirrhosis, alcohol abuse. 4. Anemia secondary to GI bleed. - Plan Plan: CPm. Monitor CBC.
--- NOTE | 2018-06-19 14:17 | General Progress Note ---
Subjective - Review of Systems Service Date: 06/19/18 Subjective: alert, less abd discomfort Objective - Results Result Diagrams: 06/19/18 06:10 06/19/18 06:10 Recent Labs: Laboratory Last Values WBC 16.6 Th/cmm (4.8-10.8) H 06/19/18 06:10 RBC 2.78 Mil/cmm (4.30-5.70) L 06/19/18 06:10 Hgb 8.3 gm/dL (12-16) L 06/19/18 06:10 Hct 23.7 % (41.0-60) L 06/19/18 06:10 MCV 85.3 fl (80-99) 06/19/18 06:10 MCH 30.0 pg (26.0-30.0) 06/19/18 06:10 MCHC Differential 35.2 pg (28.0-36.0) 06/19/18 06:10 RDW 14.0 % (11.5-20.0) 06/19/18 06:10 Plt Count 87 Th/cmm (150-400) L 06/19/18 06:10 MPV 8.0 fl 06/19/18 06:10 Add Manual Diff [facility] 06/18/18 15:50 Neutrophils % 69.8 % (40.0-80.0) 06/19/18 06:10 Band Neutrophils % 3 % (0-10) 06/18/18 15:50 Lymphocytes % 16.8 % (20.0-50.0) L 06/19/18 06:10 Monocytes % 12.0 % (2.0-10.0) H 06/19/18 06:10 Eosinophils % 0.6 % (0.0-5.0) 06/19/18 06:10 Basophils % 0.8 % (0.0-2.0) 06/19/18 06:10 Neutrophils (Manual) 62 % (40-80) 06/18/18 15:50 Lymphocytes 31 % (20-50) 06/18/18 15:50 Monocytes 4 % (2-10) 06/18/18 15:50 Eosinophils 1 % (0-5) 06/18/18 12:25 Hypochromia 1+ 06/18/18 03:50 Platelet Estimate SLIGHT DECREASED (NORMAL) 06/18/18 15:50 Polychromasia 1+ 06/18/18 03:50 Poikilocytosis 1+ 06/18/18 03:50 Arielle Cells 1+ 06/18/18 03:50 Schistocytes 1+ 06/18/18 03:50 Eos Smear Source URINE 06/19/18 04:00 Eos Smear Total Cells NONE SEEN (NONE SEEN) 06/19/18 04:00 PT 21.6 SECONDS (9.5-11.5) H 06/19/18 06:10 INR 2.01 (0.5-1.4) H 06/19/18 06:10 PTT (Actin FS) 54.6 SECONDS (26.0-38.0) H 06/19/18 06:10 Sodium 140 mEq/L (136-145) 06/19/18 06:10 Potassium 3.2 mEq/L (3.5-5.1) L 06/19/18 06:10 Chloride 116 mEq/L (98-107) H 06/19/18 06:10 Carbon Dioxide 14.7 mEq/L (21.0-31.0) L 06/19/18 06:10 Anion Gap 12.5 (7.0-16.0) 06/19/18 06:10 BUN 41 mg/dL (7-25) H 06/19/18 06:10 Creatinine 2.8 mg/dL (0.7-1.3) H 06/19/18 06:10 Est GFR ( Amer) 33.7 ml/min (>90) 06/19/18 06:10 Est GFR (Non-Af Amer) 27.9 ml/min 06/19/18 06:10 BUN/Creatinine Ratio 14.6 06/19/18 06:10 Glucose 122 mg/dL (70-105) H 06/19/18 06:10 Whole Bld Lactic Acid 1.33 mmol/L (0.60-1.99) 06/19/18 06:10 Uric Acid 6.4 mg/dL (4.4-7.6) 06/19/18 06:10 Calcium 7.6 mg/dL (8.6-10.3) L 06/19/18 06:10 Phosphorus 4.4 mg/dL (2.5-5.0) 06/19/18 06:10 Magnesium 1.6 mg/dL (1.9-2.7) L 06/19/18 06:10 Total Bilirubin 18.5 mg/dL (0.3-1.0) H 06/19/18 06:10 AST 66 U/L (13-39) H 06/19/18 06:10 ALT 14 U/L (7-52) 06/19/18 06:10 Alkaline Phosphatase 108 U/L (34-104) H 06/19/18 06:10 Ammonia 55 umol/L (16-53) H 06/18/18 03:50 Troponin I 0.02 ng/mL (0.01-0.05) 06/18/18 03:50 Total Protein 4.2 gm/dL (6.0-8.3) L 06/19/18 06:10 Albumin 2.5 gm/dL (4.2-5.5) L 06/19/18 06:10 Globulin 1.7 gm/dL 06/19/18 06:10 Albumin/Globulin Ratio 1.5 (1.0-1.8) 06/19/18 06:10 Amylase 57 U/L (29-103) 06/18/18 03:50 Lipase 132 U/L (11-82) H 06/18/18 03:50 TSH 3.57 uIU/ml (0.34-5.60) 06/18/18 03:50 Urine Source [place] 06/19/18 11:45 Urine Color ORANGE 06/19/18 11:45 Urine Clarity HAZY (CLEAR) 06/19/18 11:45 Urine pH 5.5 (4.6 - 8.0) 06/19/18 11:45 Ur Specific [place] 1.015 (1.005-1.030) 06/19/18 11:45 Urine Protein TRACE mg/dL (NEGATIVE) 06/19/18 11:45 Urine Glucose (UA) NEGATIVE mg/dL (NEGATIVE) 06/19/18 11:45 Urine Ketones NEGATIVE mg/dL (NEGATIVE) 06/19/18 11:45 Urine Blood LARGE (NEGATIVE) H 06/19/18 11:45 Urine Nitrate NEGATIVE (NEGATIVE) 06/19/18 11:45 Urine Bilirubin LARGE (NEGATIVE) H 06/19/18 11:45 Urine Ictotest POSITIVE (NEGATIVE) H 06/19/18 11:45 Urine Urobilinogen 0.2 E.U./dL (0.2 - 1.0) 06/19/18 11:45 Ur Leukocyte Esterase TRACE (NEGATIVE) H 06/19/18 11:45 Urine RBC 5-10 /hpf (0-5) H 06/19/18 11:45 Urine WBC 2-5 /hpf (0-5) 06/19/18 11:45 Ur Epithelial Cells FEW /lpf (FEW) 06/19/18 11:45 Calcium Oxalate Crystal FEW /hpf 06/19/18 11:45 Urine Bacteria 1+ /hpf (NONE SEEN) H 06/19/18 11:45 Fine Granular Casts 0-2 /lpf (NONE SEEN) H 06/19/18 11:45 Coarse Granular Casts 2-5 /lpf (NONE SEEN) H 06/19/18 11:45 Ur Random Sodium 27 mmol/L 06/19/18 04:00 Urine Creatinine 82.0 mg/dl (39.0-259.0) 06/19/18 04:00 Ethyl Alcohol < 10 mg/dL (0-10) 06/18/18 03:50 Blood Type O POSITIVE 06/18/18 03:50 Antibody Screen NEGATIVE 06/18/18 03:50 Crossmatch See Detail 06/18/18 03:50 - Physical Exam Vitals and I&O: Vital Signs Temp 97.8 F 06/19/18 13:00 Pulse 87 06/19/18 13:00 Resp 13 06/19/18 13:00 BP 109/66 06/19/18 13:00 Pulse Ox 100 06/19/18 13:00 Intake & Output 06/18/18 06/19/18 06/19/18 18:59 06:59 18:59 Intake Total 2422.263 2204.5 755 Output Total 400 920 Balance 2022.263 1284.5 755 Weight (lbs) 97.154 kg 96.162 kg Intake: Intake, IV Amount 466.608 7541.5 755 D5-0.9%Ns 1,000 ml @ 150 1920 mls/hr IV .Q6H40M [facility] Rx# :[id number] KCL 20mEq/100mL Premix 20 100 meq In 100 ml @ 50 mls/ hr IV Q2H [facility] Rx#: [id number] Levetiracetam 500 mg In 105 Sodium Chloride 0.9% 100 ml @ 100 mls/hr IV Q12H [facility] Rx#:[id number] Norepinephrine 4 mg In 72.263 Dextrose 5% 250 ml @ Per Protocol IV TITR PRN Rx#: [id number] Pantoprazole 80 mg In 184.5 Sodium Chloride 0.9% 100 ml @ 10 mls/hr IV Q10H [facility] Rx#:[id number] Piperacillin Sodium/ 150 100 50 Tazobact 3.375 gm In Sodium Chloride 0.9% 50 ml @ 100 mls/hr IV Q6HR [facility] Rx#:[id number] Vancomycin HCl 1.75 gm In 500 Sodium Chloride 0.9% 500 ml @ 250 mls/hr IV Q24H [facility] Rx#:[id number] Oral 0 Blood Product 2200 Output: Urine 400 620 Stool 300 Other: # Bowel Movements 3 3 Stool Characteristics Bloody Bloody Bloody Weight Source Bedscale Bedscale Active Medications: Current Medications Piperacillin Sod/Tazobactam (Sod 3.375 gm/ Sodium Chloride) 50 mls @ 100 mls/ hr IV Q6HR [facility] Stop: 08/17/18 07:14 Last Infusion: 06/19/18 12:25 Dose: Infused Norepinephrine Bitartrate 4 mg (/ Dextrose) 254 mls @ 0 mls/hr IV TITR PRN; Protocol PRN Reason: BP MAINTENANCE (PER PROTOCOL) Stop: 08/17/18 07:59 Last Titration: 06/18/18 15:19 Dose: 0 mcg/min, 0 mls/hr Pantoprazole Sodium 80 mg/ (Sodium Chloride) 100 mls @ 10 mls/hr IV Q10H [facility] Stop: 08/17/18 09:29 Last Admin: 06/19/18 05:12 Dose: 10 mls/hr Octreotide Acetate 1,250 mcg/ (Sodium Chloride) 252.5 mls @ 0 mls/hr IV .Q0M [facility]; Protocol Stop: 08/17/18 09:29 Last Admin: 06/18/18 18:01 Dose: 10 mls/hr Dextrose/Sodium Chloride (D5-0.9%Ns) 1,000 mls @ 150 mls/hr IV .Q6H40M [facility] Stop: 08/17/18 15:29 Last Admin: 06/19/18 05:12 Dose: 150 mls/hr Vancomycin HCl 1.75 gm/ Sodium (Chloride) 500 mls @ 250 mls/hr IV Q24H [facility] Stop: 08/18/18 08:59 Last Infusion: 06/19/18 11:10 Dose: Infused Levetiracetam 500 mg/ Sodium (Chloride) 105 mls @ 100 mls/hr IV Q12H [facility] Stop: 08/18/18 10:59 Last Infusion: 06/19/18 12:40 Dose: Infused Lorazepam (Ativan) 1 mg IVP Q4HR PRN; Protocol PRN Reason: Agitation Stop: 08/17/18 06:55 Miscellaneous (Zosyn Iv Per Pharmacy) 1 [facility] PRN PRN PRN Reason: PROTOCOL Stop: 08/17/18 06:49 Miscellaneous (Vancomycin Iv Per Pharmacy) 1 [facility] PRN PRN PRN Reason: PROTOCOL Stop: 08/18/18 07:37 Morphine Sulfate (Morphine) 2 mg IVP Q4HR PRN PRN Reason: Pain (Moderate) Stop: 08/17/18 06:53 Last Admin: 06/19/18 09:35 Dose: 2 mg General: Alert, Oriented x3 HEENT: Atraumatic, PERRLA, EOMI Neck: Supple, +2 carotid pulse wo bruit Cardiovascular: Regular rate, Normal S1, Normal S2 Lungs: Clear to auscultation Abdomen: Bowel sounds, Soft, Hepatomegaly, Distended, no Rebound, no Mass, no Guarding Extremities: no Clubbing, no Cyanosis, no Edema Neurological: Sensation intact Skin: no Rash Psych/Mental Status: Mood NL Assessment/Plan - Assessment Assessment: NAYELI on CKD Hypovolemic Shock Acute LGI Bleed Alcohol Cirrhosis Alcohol Abuse Acute on Chronic Anemia Leukocytosis possible Peritonitits Thrombocytopenia 2/2 to Cirrhosis Severe Malnutrition - Plan Plan: Lab - Result Diagrams 06/19/18 06:10 06/19/18 06:10 Current Medications Piperacillin Sod/Tazobactam (Sod 3.375 gm/ Sodium Chloride) 50 mls @ 100 mls/ hr IV Q6HR [facility] Stop: 08/17/18 07:14 Last Infusion: 06/19/18 12:25 Dose: Infused Norepinephrine Bitartrate 4 mg (/ Dextrose) 254 mls @ 0 mls/hr IV TITR PRN; Protocol PRN Reason: BP MAINTENANCE (PER PROTOCOL) Stop: 08/17/18 07:59 Last Titration: 06/18/18 15:19 Dose: 0 mcg/min, 0 mls/hr Pantoprazole Sodium 80 mg/ (Sodium Chloride) 100 mls @ 10 mls/hr IV Q10H [facility] Stop: 08/17/18 09:29 Last Admin: 06/19/18 05:12 Dose: 10 mls/hr Octreotide Acetate 1,250 mcg/ (Sodium Chloride) 252.5 mls @ 0 mls/hr IV .Q0M [facility]; Protocol Stop: 08/17/18 09:29 Last Admin: 06/18/18 18:01 Dose: 10 mls/hr Dextrose/Sodium Chloride (D5-0.9%Ns) 1,000 mls @ 150 mls/hr IV .Q6H40M [facility] Stop: 08/17/18 15:29 Last Admin: 06/19/18 05:12 Dose: 150 mls/hr Vancomycin HCl 1.75 gm/ Sodium (Chloride) 500 mls @ 250 mls/hr IV Q24H [facility] Stop: 08/18/18 08:59 Last Infusion: 06/19/18 11:10 Dose: Infused Levetiracetam 500 mg/ Sodium (Chloride) 105 mls @ 100 mls/hr IV Q12H [facility] Stop: 08/18/18 10:59 Last Infusion: 06/19/18 12:40 Dose: Infused Lorazepam (Ativan) 1 mg IVP Q4HR PRN; Protocol PRN Reason: Agitation Stop: 08/17/18 06:55 Miscellaneous (Zosyn Iv Per Pharmacy) 1 [facility] PRN PRN PRN Reason: PROTOCOL Stop: 08/17/18 06:49 Miscellaneous (Vancomycin Iv Per Pharmacy) 1 [facility] PRN PRN PRN Reason: PROTOCOL Stop: 08/18/18 07:37 Morphine Sulfate (Morphine) 2 mg IVP Q4HR PRN PRN Reason: Pain (Moderate) Stop: 08/17/18 06:53 Last Admin: 06/19/18 09:35 Dose: 2 mg Lab - Result Diagrams 06/19/18 06:10 06/19/18 06:10 Kidney fnc slightly improved w/ BUN/CR of 41/2.8 Hgb/Hct stable @ 8.3/23.7 no further bleed UOP improved replace K, Mg
[2018-06-19] MEDS ORDERED: Sodium Bicarbonate 8.4% 50mEq PFS IVP ONE (14:20)
[2018-06-19 22:08] LABS: HEP A AB IGM Negative (Negative); HEP B CORE IGM Negative (Negative); HEP B SURFACE AG QL Negative (Negative); HEP C ANTIBODY 0.1 s/co ratio (0.0-0.9)
[2018-06-20] MEDS: Pantoprazole 80 MG in Sodium Chloride 0.9% 100 ML IV SCH ×3 (00:56→22:22)
[2018-06-20] MEDS: D5-0.9%NS 1,000 ML IV SCH ×3 (00:58→15:09)
[2018-06-20] MEDS: Morphine Sulfate 2 mg/mL 1mL Syr IVP PRN ×4 (04:37→20:34)
[2018-06-20 04:40] LABS: % BASOPHILS 0.7 % (0.0-2.0); % EOSINOPHILS 0.5 % (0.0-5.0); % LYMPHOCYTES 23.2 % (20.0-50.0); % NEUTROPHILS 64.6 % (40.0-80.0); BASOPHILE ABSOLUTE 0.1 Th/cumm (0-0.2); EOSINOPHILE ABSOLUTE 0.1 Th/cmm (0.1-0.4); HEMOGLOBIN 8.2 gm/dL (12-16); LYMPHOCYTE ABSOLUTE 3.8 Th/cmm (1.5-3.0); MEAN CELL VOLUME 86.2 fl (80-99); MEAN CORPUSCULAR HGB CONC 34.8 pg (28.0-36.0); MEAN PLATELET VOLUME 7.7 fl; MONOCYTE ABSOLUTE 1.8 Th/cmm (0.3-1.0); NEUTROPHILE ABSOLUTE 10.5 Th/cmm (1.8-8.0); PLATELET COUNT 101 Th/cmm (150-400); RED BLOOD COUNT 2.73 Mil/cmm (4.30-5.70); RED CELL DISTRIBUTION WIDTH 14.6 % (11.5-20.0)
[2018-06-20 04:49] LABS: HEMATOCRIT 23.6 % (41.0-60); WHITE BLOOD COUNT 16.3 Th/cmm (4.8-10.8)
[2018-06-20 05:19] LABS: ALB/GLOB RATIO 1.4 (1.0-1.8); ALBUMIN 2.5 gm/dL (4.2-5.5); ANION GAP 13.4 (7.0-16.0); BILIRUBIN,TOTAL 19.4 mg/dL (0.3-1.0); CALCIUM SERUM 7.7 mg/dL (8.6-10.3); CARBON DIOXIDE 14.9 mEq/L (21.0-31.0); CREATININE - SERUM 2.7 mg/dL (0.7-1.3); GFR AFRICAN-AMERICAN 35.2 ml/min (>90); GFR NON AFRICAN-AMERICAN 29.1 ml/min; MAGNESIUM 1.6 mg/dL (1.9-2.7); POTASSIUM SERUM 3.3 mEq/L (3.5-5.1); TOTAL PROTEIN,SERUM 4.3 gm/dL (6.0-8.3)
[2018-06-20] MEDS ORDERED: Mag Sulfate 2gm/50mL Premix 2 GM/50 ML BAG IV ONE (07:09)
--- NOTE | 2018-06-20 07:38 | General Progress Note ---
Subjective - Review of Systems Service Date: 06/20/18 Subjective: Patient was seen and evaluated. Resting comfortable. No acute distress. Off Levofed. Will keep NPO for now. K+ 3.2 Hb 8.0 Objective - Results Result Diagrams: 06/20/18 04:20 06/20/18 04:20 Recent Labs: Laboratory Last Values WBC 16.3 Th/cmm (4.8-10.8) H 06/20/18 04:20 RBC 2.73 Mil/cmm (4.30-5.70) L 06/20/18 04:20 Hgb 8.2 gm/dL (12-16) L 06/20/18 04:20 Hct 23.6 % (41.0-60) L 06/20/18 04:20 MCV 86.2 fl (80-99) 06/20/18 04:20 MCH 30.0 pg (26.0-30.0) 06/20/18 04:20 MCHC Differential 34.8 pg (28.0-36.0) 06/20/18 04:20 RDW 14.6 % (11.5-20.0) 06/20/18 04:20 Plt Count 101 Th/cmm (150-400) L 06/20/18 04:20 MPV 7.7 fl 06/20/18 04:20 Add Manual Diff [employer] 06/18/18 15:50 Neutrophils % 64.6 % (40.0-80.0) 06/20/18 04:20 Band Neutrophils % 3 % (0-10) 06/18/18 15:50 Lymphocytes % 23.2 % (20.0-50.0) 06/20/18 04:20 Monocytes % 11.0 % (2.0-10.0) H 06/20/18 04:20 Eosinophils % 0.5 % (0.0-5.0) 06/20/18 04:20 Basophils % 0.7 % (0.0-2.0) 06/20/18 04:20 Neutrophils (Manual) 62 % (40-80) 06/18/18 15:50 Lymphocytes 31 % (20-50) 06/18/18 15:50 Monocytes 4 % (2-10) 06/18/18 15:50 Eosinophils 1 % (0-5) 06/18/18 12:25 Hypochromia 1+ 06/18/18 03:50 Platelet Estimate SLIGHT DECREASED (NORMAL) 06/18/18 15:50 Polychromasia 1+ 06/18/18 03:50 Poikilocytosis 1+ 06/18/18 03:50 Arielle Cells 1+ 06/18/18 03:50 Schistocytes 1+ 06/18/18 03:50 Eos Smear Source URINE 06/19/18 04:00 Eos Smear Total Cells NONE SEEN (NONE SEEN) 06/19/18 04:00 PT 21.6 SECONDS (9.5-11.5) H 06/19/18 06:10 INR 2.01 (0.5-1.4) H 06/19/18 06:10 PTT (Actin FS) 54.6 SECONDS (26.0-38.0) H 06/19/18 06:10 Sodium 145 mEq/L (136-145) 06/20/18 04:20 Potassium 3.3 mEq/L (3.5-5.1) L 06/20/18 04:20 Chloride 120 mEq/L (98-107) H 06/20/18 04:20 Carbon Dioxide 14.9 mEq/L (21.0-31.0) L 06/20/18 04:20 Anion Gap 13.4 (7.0-16.0) 06/20/18 04:20 BUN 34 mg/dL (7-25) H 06/20/18 04:20 Creatinine 2.7 mg/dL (0.7-1.3) H 06/20/18 04:20 Est GFR ( Amer) 35.2 ml/min (>90) 06/20/18 04:20 Est GFR (Non-Af Amer) 29.1 ml/min 06/20/18 04:20 BUN/Creatinine Ratio 12.6 06/20/18 04:20 Glucose 149 mg/dL (70-105) H 06/20/18 04:20 Whole Bld Lactic Acid 1.33 mmol/L (0.60-1.99) 06/19/18 06:10 Uric Acid 6.4 mg/dL (4.4-7.6) 06/19/18 06:10 Calcium 7.7 mg/dL (8.6-10.3) L 06/20/18 04:20 Phosphorus 4.4 mg/dL (2.5-5.0) 06/19/18 06:10 Magnesium 1.6 mg/dL (1.9-2.7) L 06/20/18 04:20 Total Bilirubin 19.4 mg/dL (0.3-1.0) H 06/20/18 04:20 AST 75 U/L (13-39) H 06/20/18 04:20 ALT 15 U/L (7-52) 06/20/18 04:20 Alkaline Phosphatase 133 U/L (34-104) H 06/20/18 04:20 Ammonia 55 umol/L (16-53) H 06/18/18 03:50 Troponin I 0.02 ng/mL (0.01-0.05) 06/18/18 03:50 Total Protein 4.3 gm/dL (6.0-8.3) L 06/20/18 04:20 Albumin 2.5 gm/dL (4.2-5.5) L 06/20/18 04:20 Globulin 1.8 gm/dL 06/20/18 04:20 Albumin/Globulin Ratio 1.4 (1.0-1.8) 06/20/18 04:20 Amylase 57 U/L (29-103) 06/18/18 03:50 Lipase 132 U/L (11-82) H 06/18/18 03:50 TSH 3.57 uIU/ml (0.34-5.60) 06/18/18 03:50 Urine Source [place] 06/19/18 11:45 Urine Color ORANGE 06/19/18 11:45 Urine Clarity HAZY (CLEAR) 06/19/18 11:45 Urine pH 5.5 (4.6 - 8.0) 06/19/18 11:45 Ur Specific [place] 1.015 (1.005-1.030) 06/19/18 11:45 Urine Protein TRACE mg/dL (NEGATIVE) 06/19/18 11:45 Urine Glucose (UA) NEGATIVE mg/dL (NEGATIVE) 06/19/18 11:45 Urine Ketones NEGATIVE mg/dL (NEGATIVE) 06/19/18 11:45 Urine Blood LARGE (NEGATIVE) H 06/19/18 11:45 Urine Nitrate NEGATIVE (NEGATIVE) 06/19/18 11:45 Urine Bilirubin LARGE (NEGATIVE) H 06/19/18 11:45 Urine Ictotest POSITIVE (NEGATIVE) H 06/19/18 11:45 Urine Urobilinogen 0.2 E.U./dL (0.2 - 1.0) 06/19/18 11:45 Ur Leukocyte Esterase TRACE (NEGATIVE) H 06/19/18 11:45 Urine RBC 5-10 /hpf (0-5) H 06/19/18 11:45 Urine WBC 2-5 /hpf (0-5) 06/19/18 11:45 Ur Epithelial Cells FEW /lpf (FEW) 06/19/18 11:45 Calcium Oxalate Crystal FEW /hpf 06/19/18 11:45 Urine Bacteria 1+ /hpf (NONE SEEN) H 06/19/18 11:45 Fine Granular Casts 0-2 /lpf (NONE SEEN) H 06/19/18 11:45 Coarse Granular Casts 2-5 /lpf (NONE SEEN) H 06/19/18 11:45 Ur Random Sodium 27 mmol/L 06/19/18 04:00 Urine Creatinine 82.0 mg/dl (39.0-259.0) 06/19/18 04:00 Stool Occult Blood POSITIVE (NEGATIVE) H 06/20/18 04:55 Ethyl Alcohol < 10 mg/dL (0-10) 06/18/18 03:50 Hepatitis A IgM Ab Negative (Negative) 06/18/18 07:09 Hep Bs Antigen Negative (Negative) 06/18/18 07:09 Hep B Core IgM Ab Negative (Negative) 06/18/18 07:09 Hepatitis C Antibody 0.1 s/co ratio (0.0-0.9) 06/18/18 07:09 Blood Type O POSITIVE 06/18/18 03:50 Antibody Screen NEGATIVE 06/18/18 03:50 Crossmatch See Detail 06/18/18 03:50 - Physical Exam Vitals and I&O: Vital Signs Temp 98.7 F 06/20/18 04:00 Pulse 93 06/20/18 05:00 Resp 18 06/20/18 05:00 BP 107/72 06/20/18 06:00 Pulse Ox 99 06/20/18 06:00 Intake & Output 06/19/18 06/20/18 06/20/18 18:59 06:59 18:59 Intake Total 2276.167 2340.667 Output Total 850 Balance 5983.471 7154.667 Weight (lbs) 98.6 kg Intake: Intake, IV Amount 2276.167 2340.667 D5-0.9%Ns 1,000 ml @ 150 1220 1885 mls/hr IV .Q6H40M [facility] Rx# :[id number] KCL 20mEq/100mL Premix 20 100 meq In 100 ml @ 50 mls/ hr IV Q2H [facility] Rx#: [id number] Levetiracetam 500 mg In 105 105 Sodium Chloride 0.9% 100 ml @ 100 mls/hr IV Q12H [facility] Rx#:[id number] Octreotide Acetate 1,250 252.5 mcg In Sodium Chloride 0. 9% 250 ml @ Per Protocol IV .Q0M [facility] Rx#:[id number] Pantoprazole 80 mg In 99.167 98.167 Sodium Chloride 0.9% 100 ml @ 10 mls/hr IV Q10H [facility] Rx#:[id number] Piperacillin Sodium/ 50 Tazobact 3.375 gm In Sodium Chloride 0.9% 50 ml @ 100 mls/hr IV Q6HR [facility] Rx#:[id number] Vancomycin HCl 1.75 gm In 500 Sodium Chloride 0.9% 500 ml @ 250 mls/hr IV Q24H [facility] Rx#:[id number] cefTRIAXone 1 gm In 50 Dextrose 5% 50 ml @ 100 mls/hr IV Q24H [facility] Rx#: [id number] Oral 0 Output: Urine 850 Other: # Bowel Movements 1 Stool Characteristics Bloody Brown Weight Source Bedscale Active Medications: Current Medications Norepinephrine Bitartrate 4 mg (/ Dextrose) 254 mls @ 0 mls/hr IV TITR PRN; Protocol PRN Reason: BP MAINTENANCE (PER PROTOCOL) Stop: 08/17/18 07:59 Last Titration: 06/18/18 15:19 Dose: 0 mcg/min, 0 mls/hr Pantoprazole Sodium 80 mg/ (Sodium Chloride) 100 mls @ 10 mls/hr IV Q10H [facility] Stop: 08/17/18 09:29 Last Admin: 06/20/18 00:56 Dose: 10 mls/hr Octreotide Acetate 1,250 mcg/ (Sodium Chloride) 252.5 mls @ 0 mls/hr IV .Q0M [facility]; Protocol Stop: 08/17/18 09:29 Last Admin: 06/19/18 19:58 Dose: 10 mls/hr Dextrose/Sodium Chloride (D5-0.9%Ns) 1,000 mls @ 150 mls/hr IV .Q6H40M [facility] Stop: 08/17/18 15:29 Last Admin: 06/20/18 06:52 Dose: 150 mls/hr Vancomycin HCl 1.75 gm/ Sodium (Chloride) 500 mls @ 250 mls/hr IV Q24H [facility] Stop: 08/18/18 08:59 Last Infusion: 06/19/18 11:10 Dose: Infused Levetiracetam 500 mg/ Sodium (Chloride) 105 mls @ 100 mls/hr IV Q12H [facility] Stop: 08/18/18 10:59 Last Infusion: 06/20/18 00:05 Dose: Infused Ceftriaxone Sodium 1 gm/ (Dextrose) 50 mls @ 100 mls/hr IV Q24H [facility] Stop: 08/18/18 15:59 Last Infusion: 06/19/18 17:20 Dose: Infused Magnesium Sulfate (Magnesium Sulfate Premix) 2 gm in 50 mls @ 25 mls/hr IV X1 ONE Stop: 06/20/18 09:08 Lorazepam (Ativan) 1 mg IVP Q4HR PRN; Protocol PRN Reason: Agitation Stop: 08/17/18 06:55 Miscellaneous (Zosyn Iv Per Pharmacy) 1 [facility] PRN PRN PRN Reason: PROTOCOL Stop: 08/17/18 06:49 Miscellaneous (Vancomycin Iv Per Pharmacy) 1 [facility] PRN PRN PRN Reason: PROTOCOL Stop: 08/18/18 07:37 Morphine Sulfate (Morphine) 2 mg IVP Q4HR PRN PRN Reason: Pain (Moderate) Stop: 08/17/18 06:53 Last Admin: 06/20/18 04:37 Dose: 2 mg General: Alert, Oriented x3 HEENT: Atraumatic, PERRLA, EOMI Neck: Supple, +2 carotid pulse wo bruit Cardiovascular: Regular rate, Normal S1, Normal S2 Lungs: Clear to auscultation Abdomen: Bowel sounds, Soft, Hepatomegaly, Distended, no Rebound, no Mass, no Guarding Extremities: no Clubbing, no Cyanosis, no Edema Neurological: Sensation intact Skin: no Rash Psych/Mental Status: Mood NL Assessment/Plan - Assessment Assessment: GI bleeding sepsis h/o alcohol abuse hepatic failure secondary to ETOH abuse severe anemia ascites leukocytosis thrombocytopenia acute on chronic renal failure hypokalemia cirrhosis hypomagnesemia Hepatitis Decompensated cirrhosis # Gastric varices # Rectal varices vs hemorrhoids # Ascites # Alcoholism - Plan Plan: GI consult type and screen for 2 units packed RBC's and transfuse ID consult lactic acid level renal consult IV Protonix PT/INR repeat CBC,CMP tomorrow AM
--- NOTE | 2018-06-20 09:29 | GI Progress Note ---
Subjective - Review of Systems Service Date: 06/20/18 Subjective: No further hematochezia Objective - Results Result Diagrams: 06/20/18 04:20 06/20/18 04:20 Recent Labs: Laboratory Last Values WBC 16.3 Th/cmm (4.8-10.8) H 06/20/18 04:20 RBC 2.73 Mil/cmm (4.30-5.70) L 06/20/18 04:20 Hgb 8.2 gm/dL (12-16) L 06/20/18 04:20 Hct 23.6 % (41.0-60) L 06/20/18 04:20 MCV 86.2 fl (80-99) 06/20/18 04:20 MCH 30.0 pg (26.0-30.0) 06/20/18 04:20 MCHC Differential 34.8 pg (28.0-36.0) 06/20/18 04:20 RDW 14.6 % (11.5-20.0) 06/20/18 04:20 Plt Count 101 Th/cmm (150-400) L 06/20/18 04:20 MPV 7.7 fl 06/20/18 04:20 Add Manual Diff [employer] CASE MANAGER 06/18/18 15:50 Neutrophils % 64.6 % (40.0-80.0) 06/20/18 04:20 Band Neutrophils % 3 % (0-10) 06/18/18 15:50 Lymphocytes % 23.2 % (20.0-50.0) 06/20/18 04:20 Monocytes % 11.0 % (2.0-10.0) H 06/20/18 04:20 Eosinophils % 0.5 % (0.0-5.0) 06/20/18 04:20 Basophils % 0.7 % (0.0-2.0) 06/20/18 04:20 Neutrophils (Manual) 62 % (40-80) 06/18/18 15:50 Lymphocytes 31 % (20-50) 06/18/18 15:50 Monocytes 4 % (2-10) 06/18/18 15:50 Eosinophils 1 % (0-5) 06/18/18 12:25 Hypochromia 1+ 06/18/18 03:50 Platelet Estimate SLIGHT DECREASED (NORMAL) 06/18/18 15:50 Polychromasia 1+ 06/18/18 03:50 Poikilocytosis 1+ 06/18/18 03:50 Arielle Cells 1+ 06/18/18 03:50 Schistocytes 1+ 06/18/18 03:50 Eos Smear Source URINE 06/19/18 04:00 Eos Smear Total Cells NONE SEEN (NONE SEEN) 06/19/18 04:00 PT 21.6 SECONDS (9.5-11.5) H 06/19/18 06:10 INR 2.01 (0.5-1.4) H 06/19/18 06:10 PTT (Actin FS) 54.6 SECONDS (26.0-38.0) H 06/19/18 06:10 Sodium 145 mEq/L (136-145) 06/20/18 04:20 Potassium 3.3 mEq/L (3.5-5.1) L 06/20/18 04:20 Chloride 120 mEq/L (98-107) H 06/20/18 04:20 Carbon Dioxide 14.9 mEq/L (21.0-31.0) L 06/20/18 04:20 Anion Gap 13.4 (7.0-16.0) 06/20/18 04:20 BUN 34 mg/dL (7-25) H 06/20/18 04:20 Creatinine 2.7 mg/dL (0.7-1.3) H 06/20/18 04:20 Est GFR ( Amer) 35.2 ml/min (>90) 06/20/18 04:20 Est GFR (Non-Af Amer) 29.1 ml/min 06/20/18 04:20 BUN/Creatinine Ratio 12.6 06/20/18 04:20 Glucose 149 mg/dL (70-105) H 06/20/18 04:20 Whole Bld Lactic Acid 1.33 mmol/L (0.60-1.99) 06/19/18 06:10 Uric Acid 6.4 mg/dL (4.4-7.6) 06/19/18 06:10 Calcium 7.7 mg/dL (8.6-10.3) L 06/20/18 04:20 Phosphorus 4.4 mg/dL (2.5-5.0) 06/19/18 06:10 Magnesium 1.6 mg/dL (1.9-2.7) L 06/20/18 04:20 Total Bilirubin 19.4 mg/dL (0.3-1.0) H 06/20/18 04:20 AST 75 U/L (13-39) H 06/20/18 04:20 ALT 15 U/L (7-52) 06/20/18 04:20 Alkaline Phosphatase 133 U/L (34-104) H 06/20/18 04:20 Ammonia 55 umol/L (16-53) H 06/18/18 03:50 Troponin I 0.02 ng/mL (0.01-0.05) 06/18/18 03:50 Total Protein 4.3 gm/dL (6.0-8.3) L 06/20/18 04:20 Albumin 2.5 gm/dL (4.2-5.5) L 06/20/18 04:20 Globulin 1.8 gm/dL 06/20/18 04:20 Albumin/Globulin Ratio 1.4 (1.0-1.8) 06/20/18 04:20 Amylase 57 U/L (29-103) 06/18/18 03:50 Lipase 132 U/L (11-82) H 06/18/18 03:50 TSH 3.57 uIU/ml (0.34-5.60) 06/18/18 03:50 Urine Source [place] 06/19/18 11:45 Urine Color ORANGE 06/19/18 11:45 Urine Clarity HAZY (CLEAR) 06/19/18 11:45 Urine pH 5.5 (4.6 - 8.0) 06/19/18 11:45 Ur Specific [place] 1.015 (1.005-1.030) 06/19/18 11:45 Urine Protein TRACE mg/dL (NEGATIVE) 06/19/18 11:45 Urine Glucose (UA) NEGATIVE mg/dL (NEGATIVE) 06/19/18 11:45 Urine Ketones NEGATIVE mg/dL (NEGATIVE) 06/19/18 11:45 Urine Blood LARGE (NEGATIVE) H 06/19/18 11:45 Urine Nitrate NEGATIVE (NEGATIVE) 06/19/18 11:45 Urine Bilirubin LARGE (NEGATIVE) H 06/19/18 11:45 Urine Ictotest POSITIVE (NEGATIVE) H 06/19/18 11:45 Urine Urobilinogen 0.2 E.U./dL (0.2 - 1.0) 06/19/18 11:45 Ur Leukocyte Esterase TRACE (NEGATIVE) H 06/19/18 11:45 Urine RBC 5-10 /hpf (0-5) H 06/19/18 11:45 Urine WBC 2-5 /hpf (0-5) 06/19/18 11:45 Ur Epithelial Cells FEW /lpf (FEW) 06/19/18 11:45 Calcium Oxalate Crystal FEW /hpf 06/19/18 11:45 Urine Bacteria 1+ /hpf (NONE SEEN) H 06/19/18 11:45 Fine Granular Casts 0-2 /lpf (NONE SEEN) H 06/19/18 11:45 Coarse Granular Casts 2-5 /lpf (NONE SEEN) H 06/19/18 11:45 Ur Random Sodium 27 mmol/L 06/19/18 04:00 Urine Creatinine 82.0 mg/dl (39.0-259.0) 06/19/18 04:00 Stool Occult Blood POSITIVE (NEGATIVE) H 06/20/18 04:55 Ethyl Alcohol < 10 mg/dL (0-10) 06/18/18 03:50 Hepatitis A IgM Ab Negative (Negative) 06/18/18 07:09 Hep Bs Antigen Negative (Negative) 06/18/18 07:09 Hep B Core IgM Ab Negative (Negative) 06/18/18 07:09 Hepatitis C Antibody 0.1 s/co ratio (0.0-0.9) 06/18/18 07:09 Blood Type O POSITIVE 06/18/18 03:50 Antibody Screen NEGATIVE 06/18/18 03:50 Crossmatch See Detail 06/18/18 03:50 - Physical Exam Vitals and I&O: Vital Signs Temp 98.7 F 06/20/18 04:00 Pulse 100 06/20/18 07:10 Resp 18 06/20/18 07:10 BP 107/72 06/20/18 06:00 Pulse Ox 98 06/20/18 07:10 Intake & Output 06/19/18 06/20/18 06/20/18 18:59 06:59 18:59 Intake Total 2276.167 2340.667 Output Total 850 750 Balance 0601.553 2345.667 Weight (lbs) 98.6 kg 97.976 kg Intake: Intake, IV Amount 2276.167 2340.667 D5-0.9%Ns 1,000 ml @ 150 1220 1885 mls/hr IV .Q6H40M [facility] Rx# :[id number] KCL 20mEq/100mL Premix 20 100 meq In 100 ml @ 50 mls/ hr IV Q2H [facility] Rx#: [id number] Levetiracetam 500 mg In 105 105 Sodium Chloride 0.9% 100 ml @ 100 mls/hr IV Q12H [facility] Rx#:[id number] Octreotide Acetate 1,250 252.5 mcg In Sodium Chloride 0. 9% 250 ml @ Per Protocol IV .Q0M [facility] Rx#:[id number] Pantoprazole 80 mg In 99.167 98.167 Sodium Chloride 0.9% 100 ml @ 10 mls/hr IV Q10H [facility] Rx#:[id number] Piperacillin Sodium/ 50 Tazobact 3.375 gm In Sodium Chloride 0.9% 50 ml @ 100 mls/hr IV Q6HR [facility] Rx#:[id number] Vancomycin HCl 1.75 gm In 500 Sodium Chloride 0.9% 500 ml @ 250 mls/hr IV Q24H [facility] Rx#:[id number] cefTRIAXone 1 gm In 50 Dextrose 5% 50 ml @ 100 mls/hr IV Q24H [facility] Rx#: [id number] Oral 0 Output: Urine 850 750 Stool 0 Other: # Bowel Movements 1 1 Stool Characteristics Bloody Brown Weight Source Bedscale Bedscale Active Medications: Current Medications Norepinephrine Bitartrate 4 mg (/ Dextrose) 254 mls @ 0 mls/hr IV TITR PRN; Protocol PRN Reason: BP MAINTENANCE (PER PROTOCOL) Stop: 08/17/18 07:59 Last Titration: 06/18/18 15:19 Dose: 0 mcg/min, 0 mls/hr Pantoprazole Sodium 80 mg/ (Sodium Chloride) 100 mls @ 10 mls/hr IV Q10H [facility] Stop: 08/17/18 09:29 Last Admin: 06/20/18 00:56 Dose: 10 mls/hr Octreotide Acetate 1,250 mcg/ (Sodium Chloride) 252.5 mls @ 0 mls/hr IV .Q0M [facility]; Protocol Stop: 08/17/18 09:29 Last Admin: 06/19/18 19:58 Dose: 10 mls/hr Dextrose/Sodium Chloride (D5-0.9%Ns) 1,000 mls @ 150 mls/hr IV .Q6H40M [facility] Stop: 08/17/18 15:29 Last Admin: 06/20/18 06:52 Dose: 150 mls/hr Vancomycin HCl 1.75 gm/ Sodium (Chloride) 500 mls @ 250 mls/hr IV Q24H [facility] Stop: 08/18/18 08:59 Last Infusion: 06/19/18 11:10 Dose: Infused Levetiracetam 500 mg/ Sodium (Chloride) 105 mls @ 100 mls/hr IV Q12H [facility] Stop: 08/18/18 10:59 Last Infusion: 06/20/18 00:05 Dose: Infused Ceftriaxone Sodium 1 gm/ (Dextrose) 50 mls @ 100 mls/hr IV Q24H [facility] Stop: 08/18/18 15:59 Last Infusion: 06/19/18 17:20 Dose: Infused Magnesium Sulfate 2 gm/ Sodium (Chloride) 54 mls @ 25 mls/hr IV ONCE ONE Stop: 06/20/18 10:09 Last Admin: 06/20/18 08:40 Dose: 25 mls/hr Lorazepam (Ativan) 1 mg IVP Q4HR PRN; Protocol PRN Reason: Agitation Stop: 08/17/18 06:55 Miscellaneous (Zosyn Iv Per Pharmacy) 1 [facility] PRN PRN PRN Reason: PROTOCOL Stop: 08/17/18 06:49 Miscellaneous (Vancomycin Iv Per Pharmacy) 1 [facility] PRN PRN PRN Reason: PROTOCOL Stop: 08/18/18 07:37 Morphine Sulfate (Morphine) 2 mg IVP Q4HR PRN PRN Reason: Pain (Moderate) Stop: 08/17/18 06:53 Last Admin: 06/20/18 08:50 Dose: 2 mg Phytonadione (Vitamin K) 5 mg IM X1 [facility] Stop: 06/22/18 09:14 General: Alert, Oriented x3 HEENT: Atraumatic, PERRLA, EOMI Neck: Supple Cardiovascular: Regular rate Lungs: Clear to auscultation Abdomen: Bowel sounds, Soft, Hepatomegaly, Distended, no Rebound, no Mass, no Guarding Extremities: no Clubbing, no Cyanosis, no Edema Neurological: Sensation intact Skin: no Rash Psych/Mental Status: Mood NL - Procedures Procedures: Procedures Procedure Code Date TRANSFUSE NONAUT FROZEN PLASMA IN PERIPH VEIN, OPEN 72314T8 06/18/18 TRANSFUSE NONAUT RED BLOOD CELLS IN PERIPH VEIN, PERC 67003X0 06/18/18 Assessment/Plan - Assessment Assessment: # Decompensated cirrhosis # 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 EGD showed non bleeding small to medium gastric varices and gastritis. Flex sig showed large amount of blood clot, large rectal ulcer actively bleeding. The ulcer was injected with epi, clippsed, and then cauterized with hemostasis achieved. Pt seems to have slowed down with bleeding, possibly stopped. If he rebleeds, it may be prudent to transfer to tertiary care as a TIPS procedure would be necessary for this type of portal hypertensive related bleeding that has failed endotherapy twice already. In terms of the cirrhosis, he is decompensated by ascites and varices. INR is elevated, and we will try vitamin K although this may not help that much. He will receive two more doses of vit K 5mg Plan: - will try clears today - cont monitor hgb, transfuse to keep hgb > 8 - vit K 10mg given 06/19, will get 5mg for 2 more doses - if rebleeds, needs surgical consult and consideration to transfer to a facility capable of performing TIPS with interventional radiology - will need repeat CT scan in 1-2 days to eval for resolution of possible microperf of the rectum. - hold off on paracentesis until the bleeding issue is resolved. Would likely require FFP prior to para
[2018-06-20] MEDS: Vancomycin HCl 1.75 GM in Sodium Chloride 0.9% 500 ML IV SCH (10:00)
--- NOTE | 2018-06-20 18:26 | General Progress Note ---
Subjective - Review of Systems Service Date: 06/20/18 Subjective: alert, clear liquid diet Objective - Results Result Diagrams: 06/20/18 04:20 06/20/18 04:20 Recent Labs: Laboratory Last Values WBC 16.3 Th/cmm (4.8-10.8) H 06/20/18 04:20 RBC 2.73 Mil/cmm (4.30-5.70) L 06/20/18 04:20 Hgb 8.2 gm/dL (12-16) L 06/20/18 04:20 Hct 23.6 % (41.0-60) L 06/20/18 04:20 MCV 86.2 fl (80-99) 06/20/18 04:20 MCH 30.0 pg (26.0-30.0) 06/20/18 04:20 MCHC Differential 34.8 pg (28.0-36.0) 06/20/18 04:20 RDW 14.6 % (11.5-20.0) 06/20/18 04:20 Plt Count 101 Th/cmm (150-400) L 06/20/18 04:20 MPV 7.7 fl 06/20/18 04:20 Add Manual Diff [employer]ED [employer]INEER 06/18/18 15:50 Neutrophils % 64.6 % (40.0-80.0) 06/20/18 04:20 Band Neutrophils % 3 % (0-10) 06/18/18 15:50 Lymphocytes % 23.2 % (20.0-50.0) 06/20/18 04:20 Monocytes % 11.0 % (2.0-10.0) H 06/20/18 04:20 Eosinophils % 0.5 % (0.0-5.0) 06/20/18 04:20 Basophils % 0.7 % (0.0-2.0) 06/20/18 04:20 Neutrophils (Manual) 62 % (40-80) 06/18/18 15:50 Lymphocytes 31 % (20-50) 06/18/18 15:50 Monocytes 4 % (2-10) 06/18/18 15:50 Eosinophils 1 % (0-5) 06/18/18 12:25 Hypochromia 1+ 06/18/18 03:50 Platelet Estimate SLIGHT DECREASED (NORMAL) 06/18/18 15:50 Polychromasia 1+ 06/18/18 03:50 Poikilocytosis 1+ 06/18/18 03:50 Arielle Cells 1+ 06/18/18 03:50 Schistocytes 1+ 06/18/18 03:50 Eos Smear Source URINE 06/19/18 04:00 Eos Smear Total Cells NONE SEEN (NONE SEEN) 06/19/18 04:00 PT 21.6 SECONDS (9.5-11.5) H 06/19/18 06:10 INR 2.01 (0.5-1.4) H 06/19/18 06:10 PTT (Actin FS) 54.6 SECONDS (26.0-38.0) H 06/19/18 06:10 Sodium 145 mEq/L (136-145) 06/20/18 04:20 Potassium 3.3 mEq/L (3.5-5.1) L 06/20/18 04:20 Chloride 120 mEq/L (98-107) H 06/20/18 04:20 Carbon Dioxide 14.9 mEq/L (21.0-31.0) L 06/20/18 04:20 Anion Gap 13.4 (7.0-16.0) 06/20/18 04:20 BUN 34 mg/dL (7-25) H 06/20/18 04:20 Creatinine 2.7 mg/dL (0.7-1.3) H 06/20/18 04:20 Est GFR ( Amer) 35.2 ml/min (>90) 06/20/18 04:20 Est GFR (Non-Af Amer) 29.1 ml/min 06/20/18 04:20 BUN/Creatinine Ratio 12.6 06/20/18 04:20 Glucose 149 mg/dL (70-105) H 06/20/18 04:20 Whole Bld Lactic Acid 1.33 mmol/L (0.60-1.99) 06/19/18 06:10 Uric Acid 6.4 mg/dL (4.4-7.6) 06/19/18 06:10 Calcium 7.7 mg/dL (8.6-10.3) L 06/20/18 04:20 Phosphorus 4.4 mg/dL (2.5-5.0) 06/19/18 06:10 Magnesium 1.6 mg/dL (1.9-2.7) L 06/20/18 04:20 Total Bilirubin 19.4 mg/dL (0.3-1.0) H 06/20/18 04:20 AST 75 U/L (13-39) H 06/20/18 04:20 ALT 15 U/L (7-52) 06/20/18 04:20 Alkaline Phosphatase 133 U/L (34-104) H 06/20/18 04:20 Ammonia 55 umol/L (16-53) H 06/18/18 03:50 Troponin I 0.02 ng/mL (0.01-0.05) 06/18/18 03:50 Total Protein 4.3 gm/dL (6.0-8.3) L 06/20/18 04:20 Albumin 2.5 gm/dL (4.2-5.5) L 06/20/18 04:20 Globulin 1.8 gm/dL 06/20/18 04:20 Albumin/Globulin Ratio 1.4 (1.0-1.8) 06/20/18 04:20 Amylase 57 U/L (29-103) 06/18/18 03:50 Lipase 132 U/L (11-82) H 06/18/18 03:50 TSH 3.57 uIU/ml (0.34-5.60) 06/18/18 03:50 Urine Source [place] 06/19/18 11:45 Urine Color ORANGE 06/19/18 11:45 Urine Clarity HAZY (CLEAR) 06/19/18 11:45 Urine pH 5.5 (4.6 - 8.0) 06/19/18 11:45 Ur Specific [place] 1.015 (1.005-1.030) 06/19/18 11:45 Urine Protein TRACE mg/dL (NEGATIVE) 06/19/18 11:45 Urine Glucose (UA) NEGATIVE mg/dL (NEGATIVE) 06/19/18 11:45 Urine Ketones NEGATIVE mg/dL (NEGATIVE) 06/19/18 11:45 Urine Blood LARGE (NEGATIVE) H 06/19/18 11:45 Urine Nitrate NEGATIVE (NEGATIVE) 06/19/18 11:45 Urine Bilirubin LARGE (NEGATIVE) H 06/19/18 11:45 Urine Ictotest POSITIVE (NEGATIVE) H 06/19/18 11:45 Urine Urobilinogen 0.2 E.U./dL (0.2 - 1.0) 06/19/18 11:45 Ur Leukocyte Esterase TRACE (NEGATIVE) H 06/19/18 11:45 Urine RBC 5-10 /hpf (0-5) H 06/19/18 11:45 Urine WBC 2-5 /hpf (0-5) 06/19/18 11:45 Ur Epithelial Cells FEW /lpf (FEW) 06/19/18 11:45 Calcium Oxalate Crystal FEW /hpf 06/19/18 11:45 Urine Bacteria 1+ /hpf (NONE SEEN) H 06/19/18 11:45 Fine Granular Casts 0-2 /lpf (NONE SEEN) H 06/19/18 11:45 Coarse Granular Casts 2-5 /lpf (NONE SEEN) H 06/19/18 11:45 Ur Random Sodium 27 mmol/L 06/19/18 04:00 Urine Creatinine 82.0 mg/dl (39.0-259.0) 06/19/18 04:00 Stool Occult Blood POSITIVE (NEGATIVE) H 06/20/18 04:55 Random Vancomycin 15.4 ug/mL (5.0-40.0) 06/20/18 04:20 Ethyl Alcohol < 10 mg/dL (0-10) 06/18/18 03:50 Hepatitis A IgM Ab Negative (Negative) 06/18/18 07:09 Hep Bs Antigen Negative (Negative) 06/18/18 07:09 Hep B Core IgM Ab Negative (Negative) 06/18/18 07:09 Hepatitis C Antibody 0.1 s/co ratio (0.0-0.9) 06/18/18 07:09 Blood Type O POSITIVE 06/18/18 03:50 Antibody Screen NEGATIVE 06/18/18 03:50 Crossmatch See Detail 06/18/18 03:50 - Physical Exam Vitals and I&O: Vital Signs Temp 99.2 F 06/20/18 16:00 Pulse 93 06/20/18 16:00 Resp 19 06/20/18 16:00 BP 119/76 06/20/18 16:00 Pulse Ox 97 06/20/18 16:00 Intake & Output 06/19/18 06/20/18 06/20/18 18:59 06:59 18:59 Intake Total 2276.167 2340.667 1805 Output Total 850 750 Balance 4927.299 8479.667 1805 Weight (lbs) 98.6 kg 97.976 kg Intake: Intake, IV Amount 2276.167 2340.667 1805 D5-0.9%Ns 1,000 ml @ 150 1220 1885 1000 mls/hr IV .Q6H40M [facility] Rx# :[id number] KCL 20mEq/100mL Premix 20 100 meq In 100 ml @ 50 mls/ hr IV Q2H [facility] Rx#: [id number] Levetiracetam 500 mg In 105 105 105 Sodium Chloride 0.9% 100 ml @ 100 mls/hr IV Q12H [facility] Rx#:[id number] Magnesium Sulfate 2 gm In 50 Sodium Chloride 0.9% 50 ml @ 25 mls/hr IV ONCE ONE Rx#:[id number] Octreotide Acetate 1,250 252.5 mcg In Sodium Chloride 0. 9% 250 ml @ Per Protocol IV .Q0M [facility] Rx#:[id number] Pantoprazole 80 mg In 99.167 98.167 100 Sodium Chloride 0.9% 100 ml @ 10 mls/hr IV Q10H [facility] Rx#:[id number] Piperacillin Sodium/ 50 Tazobact 3.375 gm In Sodium Chloride 0.9% 50 ml @ 100 mls/hr IV Q6HR [facility] Rx#:[id number] Vancomycin HCl 1.75 gm In 500 500 Sodium Chloride 0.9% 500 ml @ 250 mls/hr IV Q24H [facility] Rx#:[id number] cefTRIAXone 1 gm In 50 50 Dextrose 5% 50 ml @ 100 mls/hr IV Q24H [facility] Rx#: [id number] Oral 0 Output: Urine 850 750 Stool 0 Other: # Bowel Movements 1 1 Stool Characteristics Bloody Brown Black Bloody Weight Source Bedscale Bedscale Active Medications: Current Medications Pantoprazole Sodium 80 mg/ (Sodium Chloride) 100 mls @ 10 mls/hr IV Q10H [facility] Stop: 08/17/18 09:29 Last Admin: 06/20/18 12:00 Dose: 10 mls/hr Octreotide Acetate 1,250 mcg/ (Sodium Chloride) 252.5 mls @ 0 mls/hr IV .Q0M [facility]; Protocol Stop: 08/17/18 09:29 Last Admin: 06/19/18 19:58 Dose: 10 mls/hr Levetiracetam 500 mg/ Sodium (Chloride) 105 mls @ 100 mls/hr IV Q12H [facility] Stop: 08/18/18 10:59 Last Infusion: 06/20/18 11:30 Dose: Infused Ceftriaxone Sodium 1 gm/ (Dextrose) 50 mls @ 100 mls/hr IV Q24H [facility] Stop: 08/18/18 15:59 Last Infusion: 06/20/18 15:40 Dose: Infused Potassium Chloride/Dextrose/Sod Cl (D5-0.45ns W/30 Meq Kcl) 1,000 mls @ 75 mls/ hr IV .[id number] [facility] Stop: 08/19/18 18:29 Lorazepam (Ativan) 1 mg IVP Q4HR PRN; Protocol PRN Reason: Agitation Stop: 08/17/18 06:55 Miscellaneous (Zosyn Iv Per Pharmacy) 1 [facility] PRN PRN PRN Reason: PROTOCOL Stop: 08/17/18 06:49 Miscellaneous (Vancomycin Iv Per Pharmacy) 1 [facility] PRN PRN PRN Reason: PROTOCOL Stop: 08/18/18 07:37 Morphine Sulfate (Morphine) 2 mg IVP Q4HR PRN PRN Reason: Pain (Moderate) Stop: 08/17/18 06:53 Last Admin: 06/20/18 16:13 Dose: 2 mg General: Alert, Oriented x3 HEENT: Atraumatic, PERRLA, EOMI Neck: Supple Cardiovascular: Regular rate Lungs: Clear to auscultation Abdomen: Bowel sounds, Soft, Hepatomegaly, Distended, no Rebound, no Mass, no Guarding Extremities: Edema ((+2) edema), no Clubbing, no Cyanosis Neurological: Sensation intact Skin: no Rash Psych/Mental Status: Mood NL - Procedures Procedures: Procedures Procedure Code Date TRANSFUSE NONAUT FROZEN PLASMA IN PERIPH VEIN, OPEN 52817Y8 06/18/18 TRANSFUSE NONAUT RED BLOOD CELLS IN PERIPH VEIN, PERC 88492K0 06/18/18 Assessment/Plan - Assessment Assessment: NAYELI on CKD Hypovolemic Shock Acute LGI Bleed Alcohol Cirrhosis Alcohol Abuse Acute on Chronic Anemia Leukocytosis possible Peritonitits Thrombocytopenia 2/2 to Cirrhosis Severe Malnutrition - Plan Plan: Lab - Result Diagrams 06/19/18 06:10 06/19/18 06:10 Current Medications Piperacillin Sod/Tazobactam (Sod 3.375 gm/ Sodium Chloride) 50 mls @ 100 mls/ hr IV Q6HR [facility] Stop: 08/17/18 07:14 Last Infusion: 06/19/18 12:25 Dose: Infused Norepinephrine Bitartrate 4 mg (/ Dextrose) 254 mls @ 0 mls/hr IV TITR PRN; Protocol PRN Reason: BP MAINTENANCE (PER PROTOCOL) Stop: 08/17/18 07:59 Last Titration: 06/18/18 15:19 Dose: 0 mcg/min, 0 mls/hr Pantoprazole Sodium 80 mg/ (Sodium Chloride) 100 mls @ 10 mls/hr IV Q10H [facility] Stop: 08/17/18 09:29 Last Admin: 06/19/18 05:12 Dose: 10 mls/hr Octreotide Acetate 1,250 mcg/ (Sodium Chloride) 252.5 mls @ 0 mls/hr IV .Q0M [facility]; Protocol Stop: 08/17/18 09:29 Last Admin: 06/18/18 18:01 Dose: 10 mls/hr Dextrose/Sodium Chloride (D5-0.9%Ns) 1,000 mls @ 150 mls/hr IV .Q6H40M [facility] Stop: 08/17/18 15:29 Last Admin: 06/19/18 05:12 Dose: 150 mls/hr Vancomycin HCl 1.75 gm/ Sodium (Chloride) 500 mls @ 250 mls/hr IV Q24H [facility] Stop: 08/18/18 08:59 Last Infusion: 06/19/18 11:10 Dose: Infused Levetiracetam 500 mg/ Sodium (Chloride) 105 mls @ 100 mls/hr IV Q12H [facility] Stop: 08/18/18 10:59 Last Infusion: 06/19/18 12:40 Dose: Infused Lorazepam (Ativan) 1 mg IVP Q4HR PRN; Protocol PRN Reason: Agitation Stop: 08/17/18 06:55 Miscellaneous (Zosyn Iv Per Pharmacy) 1 [facility] PRN PRN PRN Reason: PROTOCOL Stop: 08/17/18 06:49 Miscellaneous (Vancomycin Iv Per Pharmacy) 1 [facility] PRN PRN PRN Reason: PROTOCOL Stop: 08/18/18 07:37 Morphine Sulfate (Morphine) 2 mg IVP Q4HR PRN PRN Reason: Pain (Moderate) Stop: 08/17/18 06:53 Last Admin: 06/19/18 09:35 Dose: 2 mg Lab - Result Diagrams 06/20/18 04:20 06/20/18 04:20 Kidney fnc slightly improved w/ BUN/CR of 34/2.7 Hgb/Hct stable @ 8.2/23.6 had clear liquid then BM w/ dark blood UOP improved replace K, Mg decrease IVF due to bipedal edema
[2018-06-20] MEDS ORDERED: D5 IV SCH (18:30)
[2018-06-20] MEDS ORDERED: KCL IV SCH (18:30)
[2018-06-20] MEDS ORDERED: [UNRECOGNIZED DRUG - OTHER] IV SCH (18:30)
[2018-06-20] MEDS ORDERED: D5-0.45NS w/20 mEq KCL 1,000 ML IV SCH ×2 (18:30→19:30)
[2018-06-20] MEDS ORDERED: Sodium Bicarbonate 8.4% 50mEq PFS IVP ONE (18:47)
[2018-06-20] MEDS: D5 IV SCH (19:35)
[2018-06-20] MEDS: KCL IV SCH (19:35)
[2018-06-20] MEDS: [UNRECOGNIZED DRUG - OTHER] IV SCH (19:35)
[2018-06-21] MEDS: Morphine Sulfate 2 mg/mL 1mL Syr IVP PRN ×4 (06:02→20:30)
--- NOTE | 2018-06-21 07:48 | General Progress Note ---
Subjective - Review of Systems Service Date: 06/21/18 Subjective: Patient was seen and evaluated. Resting comfortable. No acute distress. Off Levofed. Will keep NPO for now. K+ 3.2 Hb 8.0. Objective - Results Result Diagrams: 06/20/18 04:20 06/20/18 04:20 Recent Labs: Laboratory Last Values WBC 16.3 Th/cmm (4.8-10.8) H 06/20/18 04:20 RBC 2.73 Mil/cmm (4.30-5.70) L 06/20/18 04:20 Hgb 8.2 gm/dL (12-16) L 06/20/18 04:20 Hct 23.6 % (41.0-60) L 06/20/18 04:20 MCV 86.2 fl (80-99) 06/20/18 04:20 MCH 30.0 pg (26.0-30.0) 06/20/18 04:20 MCHC Differential 34.8 pg (28.0-36.0) 06/20/18 04:20 RDW 14.6 % (11.5-20.0) 06/20/18 04:20 Plt Count 101 Th/cmm (150-400) L 06/20/18 04:20 MPV 7.7 fl 06/20/18 04:20 Add Manual Diff DIE [facility]ARDENER 06/18/18 15:50 Neutrophils % 64.6 % (40.0-80.0) 06/20/18 04:20 Band Neutrophils % 3 % (0-10) 06/18/18 15:50 Lymphocytes % 23.2 % (20.0-50.0) 06/20/18 04:20 Monocytes % 11.0 % (2.0-10.0) H 06/20/18 04:20 Eosinophils % 0.5 % (0.0-5.0) 06/20/18 04:20 Basophils % 0.7 % (0.0-2.0) 06/20/18 04:20 Neutrophils (Manual) 62 % (40-80) 06/18/18 15:50 Lymphocytes 31 % (20-50) 06/18/18 15:50 Monocytes 4 % (2-10) 06/18/18 15:50 Eosinophils 1 % (0-5) 06/18/18 12:25 Hypochromia 1+ 06/18/18 03:50 Platelet Estimate SLIGHT DECREASED (NORMAL) 06/18/18 15:50 Polychromasia 1+ 06/18/18 03:50 Poikilocytosis 1+ 06/18/18 03:50 [place]der[place] Cells 1+ 06/18/18 03:50 Schistocytes 1+ 06/18/18 03:50 Eos Smear Source URINE 06/19/18 04:00 Eos Smear Total Cells NONE SEEN (NONE SEEN) 06/19/18 04:00 PT 21.6 SECONDS (9.5-11.5) H 06/19/18 06:10 INR 2.01 (0.5-1.4) H 06/19/18 06:10 PTT (Actin FS) 54.6 SECONDS (26.0-38.0) H 06/19/18 06:10 Sodium 145 mEq/L (136-145) 06/20/18 04:20 Potassium 3.3 mEq/L (3.5-5.1) L 06/20/18 04:20 Chloride 120 mEq/L (98-107) H 06/20/18 04:20 Carbon Dioxide 14.9 mEq/L (21.0-31.0) L 06/20/18 04:20 Anion Gap 13.4 (7.0-16.0) 06/20/18 04:20 BUN 34 mg/dL (7-25) H 06/20/18 04:20 Creatinine 2.7 mg/dL (0.7-1.3) H 06/20/18 04:20 Est GFR ( Amer) 35.2 ml/min (>90) 06/20/18 04:20 Est GFR (Non-Af Amer) 29.1 ml/min 06/20/18 04:20 BUN/Creatinine Ratio 12.6 06/20/18 04:20 Glucose 149 mg/dL (70-105) H 06/20/18 04:20 Whole Bld Lactic Acid 1.33 mmol/L (0.60-1.99) 06/19/18 06:10 Uric Acid 6.4 mg/dL (4.4-7.6) 06/19/18 06:10 Calcium 7.7 mg/dL (8.6-10.3) L 06/20/18 04:20 Phosphorus 4.4 mg/dL (2.5-5.0) 06/19/18 06:10 Magnesium 1.6 mg/dL (1.9-2.7) L 06/20/18 04:20 Total Bilirubin 19.4 mg/dL (0.3-1.0) H 06/20/18 04:20 AST 75 U/L (13-39) H 06/20/18 04:20 ALT 15 U/L (7-52) 06/20/18 04:20 Alkaline Phosphatase 133 U/L (34-104) H 06/20/18 04:20 Ammonia 55 umol/L (16-53) H 06/18/18 03:50 Troponin I 0.02 ng/mL (0.01-0.05) 06/18/18 03:50 Total Protein 4.3 gm/dL (6.0-8.3) L 06/20/18 04:20 Albumin 2.5 gm/dL (4.2-5.5) L 06/20/18 04:20 Globulin 1.8 gm/dL 06/20/18 04:20 Albumin/Globulin Ratio 1.4 (1.0-1.8) 06/20/18 04:20 Amylase 57 U/L (29-103) 06/18/18 03:50 Lipase 132 U/L (11-82) H 06/18/18 03:50 TSH 3.57 uIU/ml (0.34-5.60) 06/18/18 03:50 Urine Source [place] 06/19/18 11:45 Urine Color ORANGE 06/19/18 11:45 Urine Clarity HAZY (CLEAR) 06/19/18 11:45 Urine pH 5.5 (4.6 - 8.0) 06/19/18 11:45 Ur Specific [place] 1.015 (1.005-1.030) 06/19/18 11:45 Urine Protein TRACE mg/dL (NEGATIVE) 06/19/18 11:45 Urine Glucose (UA) NEGATIVE mg/dL (NEGATIVE) 06/19/18 11:45 Urine Ketones NEGATIVE mg/dL (NEGATIVE) 06/19/18 11:45 Urine Blood LARGE (NEGATIVE) H 06/19/18 11:45 Urine Nitrate NEGATIVE (NEGATIVE) 06/19/18 11:45 Urine Bilirubin LARGE (NEGATIVE) H 06/19/18 11:45 Urine Ictotest POSITIVE (NEGATIVE) H 06/19/18 11:45 Urine Urobilinogen 0.2 E.U./dL (0.2 - 1.0) 06/19/18 11:45 Ur Leukocyte Esterase TRACE (NEGATIVE) H 06/19/18 11:45 Urine RBC 5-10 /hpf (0-5) H 06/19/18 11:45 Urine WBC 2-5 /hpf (0-5) 06/19/18 11:45 Ur Epithelial Cells FEW /lpf (FEW) 06/19/18 11:45 Calcium Oxalate Crystal FEW /hpf 06/19/18 11:45 Urine Bacteria 1+ /hpf (NONE SEEN) H 06/19/18 11:45 Fine Granular Casts 0-2 /lpf (NONE SEEN) H 06/19/18 11:45 Coarse Granular Casts 2-5 /lpf (NONE SEEN) H 06/19/18 11:45 Ur Random Sodium 27 mmol/L 06/19/18 04:00 Urine Creatinine 82.0 mg/dl (39.0-259.0) 06/19/18 04:00 Stool Occult Blood POSITIVE (NEGATIVE) 06/20/18 04:55 Random Vancomycin 15.4 ug/mL (5.0-40.0) 06/20/18 04:20 Ethyl Alcohol < 10 mg/dL (0-10) 06/18/18 03:50 Hepatitis A IgM Ab Negative (Negative) 06/18/18 07:09 Hep Bs Antigen Negative (Negative) 06/18/18 07:09 Hep B Core IgM Ab Negative (Negative) 06/18/18 07:09 Hepatitis C Antibody 0.1 s/co ratio (0.0-0.9) 06/18/18 07:09 Blood Type O POSITIVE 06/18/18 03:50 Antibody Screen NEGATIVE 06/18/18 03:50 Crossmatch See Detail 06/18/18 03:50 - Physical Exam Vitals and I&O: Vital Signs Temp 99 F 06/21/18 06:00 Pulse 98 06/21/18 07:13 Resp 13 06/21/18 07:13 BP 130/83 06/21/18 06:00 Pulse Ox 97 06/21/18 07:13 Intake & Output 06/20/18 06/21/18 06/21/18 18:59 06:59 18:59 Intake Total 2705 857.5 Output Total 700 750 Balance 2004 107.5 Weight (lbs) 98.515 kg 110.677 kg Intake: Intake, IV Amount 1805 457.5 D5-0.9%Ns 1,000 ml @ 150 1000 mls/hr IV .Q6H40M [facility] Rx# :[id number] Levetiracetam 500 mg In 105 105 Sodium Chloride 0.9% 100 ml @ 100 mls/hr IV Q12H [facility] Rx#:[id number] Magnesium Sulfate 2 gm In 50 Sodium Chloride 0.9% 50 ml @ 25 mls/hr IV ONCE ONE Rx#:[id number] Octreotide Acetate 1,250 252.5 mcg In Sodium Chloride 0. 9% 250 ml @ Per Protocol IV .Q0M [facility] Rx#:[id number] Pantoprazole 80 mg In 100 100 Sodium Chloride 0.9% 100 ml @ 10 mls/hr IV Q10H [facility] Rx#:[id number] Vancomycin HCl 1.75 gm In 500 Sodium Chloride 0.9% 500 ml @ 250 mls/hr IV Q24H [facility] Rx#:[id number] cefTRIAXone 1 gm In 50 Dextrose 5% 50 ml @ 100 mls/hr IV Q24H [facility] Rx#: [id number] Oral 900 400 Output: Urine 700 650 Stool 100 Other: # Bowel Movements 1 1 Stool Characteristics Black Bloody Weight Source Bedscale Bedscale Active Medications: Current Medications Pantoprazole Sodium 80 mg/ (Sodium Chloride) 100 mls @ 10 mls/hr IV Q10H [facility] Stop: 08/17/18 09:29 Last Admin: 06/20/18 22:22 Dose: 10 mls/hr Octreotide Acetate 1,250 mcg/ (Sodium Chloride) 252.5 mls @ 0 mls/hr IV .Q0M [facility]; Protocol Stop: 08/17/18 09:29 Last Admin: 06/20/18 22:29 Dose: 10 mls/hr Levetiracetam 500 mg/ Sodium (Chloride) 105 mls @ 100 mls/hr IV Q12H [facility] Stop: 08/18/18 10:59 Last Infusion: 06/20/18 23:25 Dose: Infused Ceftriaxone Sodium 1 gm/ (Dextrose) 50 mls @ 100 mls/hr IV Q24H [facility] Stop: 08/18/18 15:59 Last Infusion: 06/20/18 15:40 Dose: Infused Potassium Chloride/Dextrose/Sod Cl (D5-0.45ns W/30 Meq Kcl) 1,000 mls @ 75 mls/ hr IV .[id number] [facility] Stop: 08/19/18 19:29 Last Admin: 06/20/18 19:35 Dose: 75 mls/hr Potassium Chloride (Potassium Chloride) 20 meq in 100 mls @ 50 mls/hr IV Q2H [facility] Stop: 06/21/18 11:29 Magnesium Sulfate (Magnesium Sulfate Premix) 2 gm in 50 mls @ 25 mls/hr IV X1 ONE Stop: 06/21/18 09:20 Lorazepam (Ativan) 1 mg IVP Q4HR PRN; Protocol PRN Reason: Agitation Stop: 08/17/18 06:55 Miscellaneous (Zosyn Iv Per Pharmacy) 1 [facility] PRN PRN PRN Reason: PROTOCOL Stop: 08/17/18 06:49 Miscellaneous (Vancomycin Iv Per Pharmacy) 1 [facility] PRN PRN PRN Reason: PROTOCOL Stop: 08/18/18 07:37 Morphine Sulfate (Morphine) 2 mg IVP Q4HR PRN PRN Reason: Pain (Moderate) Stop: 08/17/18 06:53 Last Admin: 06/21/18 06:02 Dose: 2 mg General: Alert, Oriented x3 HEENT: Atraumatic, PERRLA, EOMI Neck: Supple Cardiovascular: Regular rate Lungs: Clear to auscultation Abdomen: Bowel sounds, Soft, Hepatomegaly, Distended, no Rebound, no Mass, no Guarding Extremities: Edema ((+2) edema), no Clubbing, no Cyanosis Neurological: Sensation intact Skin: no Rash Psych/Mental Status: Mood NL - Procedures Procedures: Procedures Procedure Code Date TRANSFUSE NONAUT FROZEN PLASMA IN PERIPH VEIN, OPEN 68704A8 06/18/18 TRANSFUSE NONAUT RED BLOOD CELLS IN PERIPH VEIN, PERC 92445V5 06/18/18 Assessment/Plan - Assessment Assessment: GI bleeding h/o alcohol abuse 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
[2018-06-21] MEDS ORDERED: D5 IV SCH (08:01)
[2018-06-21] MEDS ORDERED: [UNRECOGNIZED DRUG - OTHER] IV SCH (08:01)
[2018-06-21] MEDS ORDERED: KCL IV SCH (08:01)
[2018-06-21 08:24] LABS: HEMATOCRIT 24.7 % (41.0-60); HEMOGLOBIN 8.6 gm/dL (12-16); MEAN CORPUSCULAR HEMOGLOBIN 30.1 pg (26.0-30.0); MEAN CORPUSCULAR HGB CONC 34.9 pg (28.0-36.0); MEAN PLATELET VOLUME 7.6 fl; PLATELET COUNT 117 Th/cmm (150-400); RED BLOOD COUNT 2.87 Mil/cmm (4.30-5.70); RED CELL DISTRIBUTION WIDTH 14.9 % (11.5-20.0)
[2018-06-21 08:26] LABS: WHITE BLOOD COUNT 16.8 Th/cmm (4.8-10.8)
[2018-06-21 08:31] LABS: INR 2.2 (0.5-1.4); PROTHROMBIN TIME (TEST) 23.8 SECONDS (9.5-11.5)
[2018-06-21 08:41] LABS: ALB/GLOB RATIO 1.4 (1.0-1.8); ALBUMIN 2.6 gm/dL (4.2-5.5); BILIRUBIN,TOTAL 20.5 mg/dL (0.3-1.0); CALCIUM SERUM 7.9 mg/dL (8.6-10.3); CARBON DIOXIDE 16.3 mEq/L (21.0-31.0); CREATININE - SERUM 2.4 mg/dL (0.7-1.3); GFR AFRICAN-AMERICAN 40.3 ml/min (>90); GFR NON AFRICAN-AMERICAN 33.3 ml/min; MAGNESIUM 1.9 mg/dL (1.9-2.7); POTASSIUM SERUM 3.3 mEq/L (3.5-5.1); TOTAL PROTEIN,SERUM 4.5 gm/dL (6.0-8.3)
[2018-06-21] MEDS: D5 IV SCH ×2 (08:55→21:21)
[2018-06-21] MEDS: [UNRECOGNIZED DRUG - OTHER] IV SCH ×2 (08:55→21:21)
[2018-06-21] MEDS: KCL IV SCH ×2 (08:55→21:21)
[2018-06-21 08:59] LABS: CREATININEURINE 76.4 mg/dl; MICROALBUMIN RANDOM RUINE 26.8
[2018-06-21 09:04] LABS: BAND NEUTROPHILE 1 % (0-10); BASOPHIL 0 % (0-3); EOSINOPHIL 0 % (0-5); LYMPHOCYTE 17 % (20-50); MONOCYTE 13 % (2-10); NEUTROPHILS 69 % (40-80)
[2018-06-21] MEDS ORDERED: Mag Sulfate 2gm/50mL Premix 2 GM/50 ML BAG IV ONE (10:00)
--- NOTE | 2018-06-21 11:44 | Infectious Disease Prog Note ---
Infectious Disease Subjective - Review of Systems Service Date: 06/21/18 Subjective: There is no new change, no fever. Infectious Disease Objective - Results Result Diagrams: 06/21/18 08:00 06/21/18 08:00 Recent Labs: Laboratory Last Values WBC 16.8 Th/cmm (4.8-10.8) H 06/21/18 08:00 RBC 2.87 Mil/cmm (4.30-5.70) L 06/21/18 08:00 Hgb 8.6 gm/dL (12-16) L 06/21/18 08:00 Hct 24.7 % (41.0-60) L 06/21/18 08:00 MCV 86.0 fl (80-99) 06/21/18 08:00 MCH 30.1 pg (26.0-30.0) H 06/21/18 08:00 MCHC Differential 34.9 pg (28.0-36.0) 06/21/18 08:00 RDW 14.9 % (11.5-20.0) 06/21/18 08:00 Plt Count 117 Th/cmm (150-400) L 06/21/18 08:00 MPV 7.6 fl 06/21/18 08:00 Add Manual Diff YES 06/21/18 08:00 Neutrophils % 64.6 % (40.0-80.0) 06/20/18 04:20 Band Neutrophils % 1 % (0-10) 06/21/18 08:00 Lymphocytes % 23.2 % (20.0-50.0) 06/20/18 04:20 Monocytes % 11.0 % (2.0-10.0) H 06/20/18 04:20 Eosinophils % 0.5 % (0.0-5.0) 06/20/18 04:20 Basophils % 0.7 % (0.0-2.0) 06/20/18 04:20 Neutrophils (Manual) 69 % (40-80) 06/21/18 08:00 Lymphocytes 17 % (20-50) L 06/21/18 08:00 Monocytes 13 % (2-10) H 06/21/18 08:00 Eosinophils 0 % (0-5) 06/21/18 08:00 Basophils 0 % (0-3) 06/21/18 08:00 Hypochromia 1+ 06/18/18 03:50 Platelet Estimate SLIGHT DECREASED (NORMAL) 06/18/18 15:50 Polychromasia 1+ 06/18/18 03:50 Poikilocytosis 1+ 06/18/18 03:50 [place] Cells 1+ 06/18/18 03:50 Schistocytes 1+ 06/18/18 03:50 Eos Smear Source URINE 06/19/18 04:00 Eos Smear Total Cells NONE SEEN (NONE SEEN) 06/19/18 04:00 PT 23.8 SECONDS (9.5-11.5) H 06/21/18 08:00 INR 2.20 (0.5-1.4) H 06/21/18 08:00 PTT (Actin FS) 54.6 SECONDS (26.0-38.0) H 06/19/18 06:10 Sodium 143 mEq/L (136-145) 06/21/18 08:00 Potassium 3.3 mEq/L (3.5-5.1) L 06/21/18 08:00 Chloride 117 mEq/L (98-107) H 06/21/18 08:00 Carbon Dioxide 16.3 mEq/L (21.0-31.0) L 06/21/18 08:00 Anion Gap 13.0 (7.0-16.0) 06/21/18 08:00 BUN 29 mg/dL (7-25) H 06/21/18 08:00 Creatinine 2.4 mg/dL (0.7-1.3) H 06/21/18 08:00 Est GFR ( Amer) 40.3 ml/min (>90) 06/21/18 08:00 Est GFR (Non-Af Amer) 33.3 ml/min 06/21/18 08:00 BUN/Creatinine Ratio 12.1 06/21/18 08:00 Glucose 119 mg/dL (70-105) H 06/21/18 08:00 Whole Bld Lactic Acid 1.33 mmol/L (0.60-1.99) 06/19/18 06:10 Uric Acid 6.4 mg/dL (4.4-7.6) 06/19/18 06:10 Calcium 7.9 mg/dL (8.6-10.3) L 06/21/18 08:00 Phosphorus 4.4 mg/dL (2.5-5.0) 06/19/18 06:10 Magnesium 1.9 mg/dL (1.9-2.7) 06/21/18 08:00 Total Bilirubin 20.5 mg/dL (0.3-1.0) H 06/21/18 08:00 AST 68 U/L (13-39) H 06/21/18 08:00 ALT 14 U/L (7-52) 06/21/18 08:00 Alkaline Phosphatase 149 U/L (34-104) H 06/21/18 08:00 Ammonia 55 umol/L (16-53) H 06/18/18 03:50 Troponin I 0.02 ng/mL (0.01-0.05) 06/18/18 03:50 Total Protein 4.5 gm/dL (6.0-8.3) L 06/21/18 08:00 Albumin 2.6 gm/dL (4.2-5.5) L 06/21/18 08:00 Globulin 1.9 gm/dL 06/21/18 08:00 Albumin/Globulin Ratio 1.4 (1.0-1.8) 06/21/18 08:00 Amylase 57 U/L (29-103) 06/18/18 03:50 Lipase 132 U/L (11-82) H 06/18/18 03:50 TSH 3.57 uIU/ml (0.34-5.60) 06/18/18 03:50 Urine Source [place] 06/19/18 11:45 Urine Color ORANGE 06/19/18 11:45 Urine Clarity HAZY (CLEAR) 06/19/18 11:45 Urine pH 5.5 (4.6 - 8.0) 06/19/18 11:45 Ur Specific [place] 1.015 (1.005-1.030) 06/19/18 11:45 Urine Protein TRACE mg/dL (NEGATIVE) 06/19/18 11:45 Urine Glucose (UA) NEGATIVE mg/dL (NEGATIVE) 06/19/18 11:45 Urine Ketones NEGATIVE mg/dL (NEGATIVE) 06/19/18 11:45 Urine Blood LARGE (NEGATIVE) H 06/19/18 11:45 Urine Nitrate NEGATIVE (NEGATIVE) 06/19/18 11:45 Urine Bilirubin LARGE (NEGATIVE) H 06/19/18 11:45 Urine Ictotest POSITIVE (NEGATIVE) H 06/19/18 11:45 Urine Urobilinogen 0.2 E.U./dL (0.2 - 1.0) 06/19/18 11:45 Ur Leukocyte Esterase TRACE (NEGATIVE) H 06/19/18 11:45 Urine RBC 5-10 /hpf (0-5) H 06/19/18 11:45 Urine WBC 2-5 /hpf (0-5) 06/19/18 11:45 Ur Epithelial Cells FEW /lpf (FEW) 06/19/18 11:45 Calcium Oxalate Crystal FEW /hpf 06/19/18 11:45 Urine Bacteria 1+ /hpf (NONE SEEN) H 06/19/18 11:45 Fine Granular Casts 0-2 /lpf (NONE SEEN) H 06/19/18 11:45 Coarse Granular Casts 2-5 /lpf (NONE SEEN) H 06/19/18 11:45 Ur Random Sodium 27 mmol/L 06/19/18 04:00 Urine Creatinine 76.4 mg/dl 06/19/18 11:45 Urine Microalbumin 26.8 06/19/18 11:45 Microalb/Creat Ratio 35.1 06/19/18 11:45 Stool Occult Blood POSITIVE (NEGATIVE) H 06/20/18 04:55 Vancomycin Trough 19.7 ug/mL (5-10) H 06/21/18 08:00 Random Vancomycin 15.4 ug/mL (5.0-40.0) 06/20/18 04:20 Ethyl Alcohol < 10 mg/dL (0-10) 06/18/18 03:50 Hepatitis A IgM Ab Negative (Negative) 06/18/18 07:09 Hep Bs Antigen Negative (Negative) 06/18/18 07:09 Hep B Core IgM Ab Negative (Negative) 06/18/18 07:09 Hepatitis C Antibody 0.1 s/co ratio (0.0-0.9) 06/18/18 07:09 Blood Type O POSITIVE 06/18/18 03:50 Antibody Screen NEGATIVE 06/18/18 03:50 Crossmatch See Detail 06/18/18 03:50 - Physical Exam Vitals and I&O: Vital Signs Temp 99.1 F 06/21/18 08:00 Pulse 102 06/21/18 11:00 Resp 14 06/21/18 11:00 BP 129/81 06/21/18 11:00 Pulse Ox 97 06/21/18 11:00 Intake & Output 06/20/18 06/21/18 06/21/18 18:59 06:59 18:59 Intake Total 2705 857.5 1000 Output Total 700 750 Balance 2005 107.5 1000 Weight (lbs) 98.515 kg 110.677 kg Intake: Intake, IV Amount 1805 457.5 1000 D5-0.45NS w/30 mEq KCL 1, 1000 000 ml @ 75 mls/hr IV . [id number] [facility] Rx#:[id number] D5-0.9%Ns 1,000 ml @ 150 1000 mls/hr IV .Q6H40M [facility] Rx# :[id number] Levetiracetam 500 mg In 105 105 Sodium Chloride 0.9% 100 ml @ 100 mls/hr IV Q12H [facility] Rx#:[id number] Magnesium Sulfate 2 gm In 50 Sodium Chloride 0.9% 50 ml @ 25 mls/hr IV ONCE ONE Rx#:[id number] Octreotide Acetate 1,250 252.5 mcg In Sodium Chloride 0. 9% 250 ml @ Per Protocol IV .Q0M [facility] Rx#:[id number] Pantoprazole 80 mg In 100 100 Sodium Chloride 0.9% 100 ml @ 10 mls/hr IV Q10H [facility] Rx#:[id number] Vancomycin HCl 1.75 gm In 500 Sodium Chloride 0.9% 500 ml @ 250 mls/hr IV Q24H [facility] Rx#:[id number] cefTRIAXone 1 gm In 50 Dextrose 5% 50 ml @ 100 mls/hr IV Q24H [facility] Rx#: [id number] Oral 900 400 Output: Urine 700 650 Stool 100 Other: # Bowel Movements 1 1 Stool Characteristics Black Bloody Weight Source Bedscale Bedscale Active Medications: Current Medications Pantoprazole Sodium 80 mg/ (Sodium Chloride) 100 mls @ 10 mls/hr IV Q10H [facility] Stop: 08/17/18 09:29 Last Admin: 06/20/18 22:22 Dose: 10 mls/hr Octreotide Acetate 1,250 mcg/ (Sodium Chloride) 252.5 mls @ 0 mls/hr IV .Q0M [facility]; Protocol Stop: 08/17/18 09:29 Last Admin: 06/20/18 22:29 Dose: 10 mls/hr Levetiracetam 500 mg/ Sodium (Chloride) 105 mls @ 100 mls/hr IV Q12H [facility] Stop: 08/18/18 10:59 Last Admin: 06/21/18 10:02 Dose: 100 mls/hr Ceftriaxone Sodium 1 gm/ (Dextrose) 50 mls @ 100 mls/hr IV Q24H [facility] Stop: 08/18/18 15:59 Last Infusion: 06/20/18 15:40 Dose: Infused Potassium Chloride/Dextrose/Sod Cl (D5-0.45ns W/30 Meq Kcl) 1,000 mls @ 75 mls/ hr IV .[id number] [facility] Stop: 08/19/18 19:29 Last Admin: 06/21/18 08:55 Dose: 75 mls/hr Magnesium Sulfate (Magnesium Sulfate Premix) 2 gm in 50 mls @ 25 mls/hr IV X1 ONE Stop: 06/21/18 11:59 Vancomycin HCl 1.75 gm/ Sodium (Chloride) 500 mls @ 250 mls/hr IV X1 ONE Stop: 06/21/18 13:59 Lorazepam (Ativan) 1 mg IVP Q4HR PRN; Protocol PRN Reason: Agitation Stop: 08/17/18 06:55 Miscellaneous (Zosyn Iv Per Pharmacy) 1 [facility] PRN PRN PRN Reason: PROTOCOL Stop: 08/17/18 06:49 Miscellaneous (Vancomycin Iv Per Pharmacy) 1 [facility] PRN PRN PRN Reason: PROTOCOL Stop: 08/18/18 07:37 Morphine Sulfate (Morphine) 2 mg IVP Q4HR PRN PRN Reason: Pain (Moderate) Stop: 08/17/18 06:53 Last Admin: 06/21/18 10:01 Dose: 2 mg General: no acute distress, well developed, well nourished HEENT: atraumatic, normocephalic, PERRLA, EOMI, moist mucous membrane Neck: supple, no thyromegaly, no lymphadenopathy Cardiovascular: S1S2, regular Lungs: clear to auscultation bilaterally, clear to percussion Abdomen: soft, distended, no tender, no hepatomegaly, no splenomegaly Extremities: no cyanosis, no clubbing, no edema Neurological: awake, alert, oriented Skin: intact - Procedures Procedures: Procedures Procedure Code Date TRANSFUSE NONAUT FROZEN PLASMA IN PERIPH VEIN, OPEN 64432W5 06/18/18 TRANSFUSE NONAUT RED BLOOD CELLS IN PERIPH VEIN, PERC 38204G8 06/18/18 Infectious Disease Assmt/Plan - Assessment Assessment: 1. Leukocytosis, reactive. Cannot rule out sepsis. 2. Thrombocytopenia. Secondary to cirrhosis 3. End-stage liver disease. Cirrhosis, alcohol abuse. 4. Anemia secondary to GI bleed. - Plan Plan: CPm. Monitor CBC.
[2018-06-21] MEDS: Pantoprazole 80 MG in Sodium Chloride 0.9% 100 ML IV SCH ×2 (11:59→21:21)
[2018-06-21] MEDS ORDERED: Vancomycin HCl 1.75 GM in Sodium Chloride 0.9% 500 ML IV ONE (12:00)
[2018-06-21] MEDS: KCL 20mEq/100mL Premix 20 MEQ/100 ML PIGGYBACK IV SCH (13:19)
--- NOTE | 2018-06-21 13:26 | General Progress Note ---
Subjective - Review of Systems Service Date: 06/21/18 Subjective: alert, clear liquid diet Objective - Results Result Diagrams: 06/21/18 08:00 06/21/18 08:00 Recent Labs: Laboratory Last Values WBC 16.8 Th/cmm (4.8-10.8) H 06/21/18 08:00 RBC 2.87 Mil/cmm (4.30-5.70) L 06/21/18 08:00 Hgb 8.6 gm/dL (12-16) L 06/21/18 08:00 Hct 24.7 % (41.0-60) L 06/21/18 08:00 MCV 86.0 fl (80-99) 06/21/18 08:00 MCH 30.1 pg (26.0-30.0) H 06/21/18 08:00 MCHC Differential 34.9 pg (28.0-36.0) 06/21/18 08:00 RDW 14.9 % (11.5-20.0) 06/21/18 08:00 Plt Count 117 Th/cmm (150-400) L 06/21/18 08:00 MPV 7.6 fl 06/21/18 08:00 Add Manual Diff YES 06/21/18 08:00 Neutrophils % 64.6 % (40.0-80.0) 06/20/18 04:20 Band Neutrophils % 1 % (0-10) 06/21/18 08:00 Lymphocytes % 23.2 % (20.0-50.0) 06/20/18 04:20 Monocytes % 11.0 % (2.0-10.0) H 06/20/18 04:20 Eosinophils % 0.5 % (0.0-5.0) 06/20/18 04:20 Basophils % 0.7 % (0.0-2.0) 06/20/18 04:20 Neutrophils (Manual) 69 % (40-80) 06/21/18 08:00 Lymphocytes 17 % (20-50) L 06/21/18 08:00 Monocytes 13 % (2-10) H 06/21/18 08:00 Eosinophils 0 % (0-5) 06/21/18 08:00 Basophils 0 % (0-3) 06/21/18 08:00 Hypochromia 1+ 06/18/18 03:50 Platelet Estimate SLIGHT DECREASED (NORMAL) 06/18/18 15:50 Polychromasia 1+ 06/18/18 03:50 Poikilocytosis 1+ 06/18/18 03:50 Arielle Cells 1+ 06/18/18 03:50 Schistocytes 1+ 06/18/18 03:50 Eos Smear Source URINE 06/19/18 04:00 Eos Smear Total Cells NONE SEEN (NONE SEEN) 06/19/18 04:00 PT 23.8 SECONDS (9.5-11.5) H 06/21/18 08:00 INR 2.20 (0.5-1.4) H 06/21/18 08:00 PTT (Actin FS) 54.6 SECONDS (26.0-38.0) H 06/19/18 06:10 Sodium 143 mEq/L (136-145) 06/21/18 08:00 Potassium 3.3 mEq/L (3.5-5.1) L 06/21/18 08:00 Chloride 117 mEq/L (98-107) H 06/21/18 08:00 Carbon Dioxide 16.3 mEq/L (21.0-31.0) L 06/21/18 08:00 Anion Gap 13.0 (7.0-16.0) 06/21/18 08:00 BUN 29 mg/dL (7-25) H 06/21/18 08:00 Creatinine 2.4 mg/dL (0.7-1.3) H 06/21/18 08:00 Est GFR ( Amer) 40.3 ml/min (>90) 06/21/18 08:00 Est GFR (Non-Af Amer) 33.3 ml/min 06/21/18 08:00 BUN/Creatinine Ratio 12.1 06/21/18 08:00 Glucose 119 mg/dL (70-105) H 06/21/18 08:00 Whole Bld Lactic Acid 1.33 mmol/L (0.60-1.99) 06/19/18 06:10 Uric Acid 6.4 mg/dL (4.4-7.6) 06/19/18 06:10 Calcium 7.9 mg/dL (8.6-10.3) L 06/21/18 08:00 Phosphorus 4.4 mg/dL (2.5-5.0) 06/19/18 06:10 Magnesium 1.9 mg/dL (1.9-2.7) 06/21/18 08:00 Total Bilirubin 20.5 mg/dL (0.3-1.0) H 06/21/18 08:00 AST 68 U/L (13-39) H 06/21/18 08:00 ALT 14 U/L (7-52) 06/21/18 08:00 Alkaline Phosphatase 149 U/L (34-104) H 06/21/18 08:00 Ammonia 55 umol/L (16-53) H 06/18/18 03:50 Troponin I 0.02 ng/mL (0.01-0.05) 06/18/18 03:50 Total Protein 4.5 gm/dL (6.0-8.3) L 06/21/18 08:00 Albumin 2.6 gm/dL (4.2-5.5) L 06/21/18 08:00 Globulin 1.9 gm/dL 06/21/18 08:00 Albumin/Globulin Ratio 1.4 (1.0-1.8) 06/21/18 08:00 Amylase 57 U/L (29-103) 06/18/18 03:50 Lipase 132 U/L (11-82) H 06/18/18 03:50 TSH 3.57 uIU/ml (0.34-5.60) 06/18/18 03:50 Urine Source [place] 06/19/18 11:45 Urine Color ORANGE 06/19/18 11:45 Urine Clarity HAZY (CLEAR) 06/19/18 11:45 Urine pH 5.5 (4.6 - 8.0) 06/19/18 11:45 Ur Specific [place] 1.015 (1.005-1.030) 06/19/18 11:45 Urine Protein TRACE mg/dL (NEGATIVE) 06/19/18 11:45 Urine Glucose (UA) NEGATIVE mg/dL (NEGATIVE) 06/19/18 11:45 Urine Ketones NEGATIVE mg/dL (NEGATIVE) 06/19/18 11:45 Urine Blood LARGE (NEGATIVE) H 06/19/18 11:45 Urine Nitrate NEGATIVE (NEGATIVE) 06/19/18 11:45 Urine Bilirubin LARGE (NEGATIVE) H 06/19/18 11:45 Urine Ictotest POSITIVE (NEGATIVE) H 06/19/18 11:45 Urine Urobilinogen 0.2 E.U./dL (0.2 - 1.0) 06/19/18 11:45 Ur Leukocyte Esterase TRACE (NEGATIVE) H 06/19/18 11:45 Urine RBC 5-10 /hpf (0-5) H 06/19/18 11:45 Urine WBC 2-5 /hpf (0-5) 06/19/18 11:45 Ur Epithelial Cells FEW /lpf (FEW) 06/19/18 11:45 Calcium Oxalate Crystal FEW /hpf 06/19/18 11:45 Urine Bacteria 1+ /hpf (NONE SEEN) H 06/19/18 11:45 Fine Granular Casts 0-2 /lpf (NONE SEEN) H 06/19/18 11:45 Coarse Granular Casts 2-5 /lpf (NONE SEEN) H 06/19/18 11:45 Ur Random Sodium 27 mmol/L 06/19/18 04:00 Urine Creatinine 76.4 mg/dl 06/19/18 11:45 Urine Microalbumin 26.8 06/19/18 11:45 Microalb/Creat Ratio 35.1 06/19/18 11:45 Stool Occult Blood POSITIVE (NEGATIVE) H 06/20/18 04:55 Vancomycin Trough 19.7 ug/mL (5-10) H 06/21/18 08:00 Random Vancomycin 15.4 ug/mL (5.0-40.0) 06/20/18 04:20 Ethyl Alcohol < 10 mg/dL (0-10) 06/18/18 03:50 Hepatitis A IgM Ab Negative (Negative) 06/18/18 07:09 Hep Bs Antigen Negative (Negative) 06/18/18 07:09 Hep B Core IgM Ab Negative (Negative) 06/18/18 07:09 Hepatitis C Antibody 0.1 s/co ratio (0.0-0.9) 06/18/18 07:09 Blood Type O POSITIVE 06/18/18 03:50 Antibody Screen NEGATIVE 06/18/18 03:50 Crossmatch See Detail 06/18/18 03:50 - Physical Exam Vitals and I&O: Vital Signs Temp 99.1 F 06/21/18 08:00 Pulse 102 06/21/18 11:00 Resp 14 06/21/18 11:00 BP 129/81 06/21/18 11:00 Pulse Ox 97 06/21/18 11:00 Intake & Output 06/20/18 06/21/18 06/21/18 18:59 06:59 18:59 Intake Total 2705 857.5 1100 Output Total 700 750 Balance 2004 107.5 1100 Weight (lbs) 98.515 kg 110.677 kg Intake: Intake, IV Amount 1805 457.5 1100 D5-0.45NS w/30 mEq KCL 1, 1000 000 ml @ 75 mls/hr IV . [id number] [facility] Rx#:[id number] D5-0.9%Ns 1,000 ml @ 150 1000 mls/hr IV .Q6H40M [facility] Rx# :[id number] Levetiracetam 500 mg In 105 105 Sodium Chloride 0.9% 100 ml @ 100 mls/hr IV Q12H [facility] Rx#:[id number] Magnesium Sulfate 2 gm In 50 Sodium Chloride 0.9% 50 ml @ 25 mls/hr IV ONCE ONE Rx#:[id number] Octreotide Acetate 1,250 252.5 mcg In Sodium Chloride 0. 9% 250 ml @ Per Protocol IV .Q0M [facility] Rx#:[id number] Pantoprazole 80 mg In 100 100 100 Sodium Chloride 0.9% 100 ml @ 10 mls/hr IV Q10H [facility] Rx#:[id number] Vancomycin HCl 1.75 gm In 500 Sodium Chloride 0.9% 500 ml @ 250 mls/hr IV Q24H [facility] Rx#:[id number] cefTRIAXone 1 gm In 50 Dextrose 5% 50 ml @ 100 mls/hr IV Q24H [facility] Rx#: [id number] Oral 900 400 Output: Urine 700 650 Stool 100 Other: # Bowel Movements 1 1 Stool Characteristics Black Bloody Weight Source Bedscale Bedscale Active Medications: Current Medications Pantoprazole Sodium 80 mg/ (Sodium Chloride) 100 mls @ 10 mls/hr IV Q10H [facility] Stop: 08/17/18 09:29 Last Admin: 06/21/18 11:59 Dose: 10 mls/hr Octreotide Acetate 1,250 mcg/ (Sodium Chloride) 252.5 mls @ 0 mls/hr IV .Q0M [facility]; Protocol Stop: 08/17/18 09:29 Last Admin: 06/20/18 22:29 Dose: 10 mls/hr Levetiracetam 500 mg/ Sodium (Chloride) 105 mls @ 100 mls/hr IV Q12H [facility] Stop: 08/18/18 10:59 Last Admin: 06/21/18 10:02 Dose: 100 mls/hr Ceftriaxone Sodium 1 gm/ (Dextrose) 50 mls @ 100 mls/hr IV Q24H [facility] Stop: 08/18/18 15:59 Last Infusion: 06/20/18 15:40 Dose: Infused Potassium Chloride/Dextrose/Sod Cl (D5-0.45ns W/30 Meq Kcl) 1,000 mls @ 75 mls/ hr IV .[id number] [facility] Stop: 08/19/18 19:29 Last Admin: 06/21/18 08:55 Dose: 75 mls/hr Vancomycin HCl 1.75 gm/ Sodium (Chloride) 500 mls @ 250 mls/hr IV X1 ONE Stop: 06/21/18 13:59 Last Admin: 06/21/18 12:00 Dose: 250 mls/hr Lorazepam (Ativan) 1 mg IVP Q4HR PRN; Protocol PRN Reason: Agitation Stop: 08/17/18 06:55 Miscellaneous (Zosyn Iv Per Pharmacy) 1 ea PRN PRN PRN Reason: PROTOCOL Stop: 08/17/18 06:49 Miscellaneous (Vancomycin Iv Per Pharmacy) 1 [facility] PRN PRN PRN Reason: PROTOCOL Stop: 08/18/18 07:37 Morphine Sulfate (Morphine) 2 mg IVP Q4HR PRN PRN Reason: Pain (Moderate) Stop: 08/17/18 06:53 Last Admin: 06/21/18 10:01 Dose: 2 mg Sodium Bicarbonate (Sodium Bicarbonate) 650 mg PO BID [facility]; Protocol Stop: 08/20/18 16:59 General: Alert, Oriented x3 HEENT: Atraumatic, PERRLA, EOMI Neck: Supple Cardiovascular: Regular rate Lungs: Clear to auscultation Abdomen: Bowel sounds, Soft, Hepatomegaly, Distended, no Rebound, no Mass, no Guarding Extremities: Edema ((+2) edema), no Clubbing, no Cyanosis Neurological: Sensation intact Skin: no Rash Psych/Mental Status: Mood NL - Procedures Procedures: Procedures Procedure Code Date TRANSFUSE NONAUT FROZEN PLASMA IN PERIPH VEIN, OPEN 33029C3 06/18/18 TRANSFUSE NONAUT RED BLOOD CELLS IN PERIPH VEIN, PERC 89790C4 06/18/18 Assessment/Plan - Assessment Assessment: NAYELI on CKD Hypovolemic Shock Acute LGI Bleed Alcohol Cirrhosis Alcohol Abuse Acute on Chronic Anemia Leukocytosis possible Peritonitits Thrombocytopenia 2/2 to Cirrhosis Severe Malnutrition - Plan Plan: Lab - Result Diagrams 06/19/18 06:10 06/19/18 06:10 Current Medications Piperacillin Sod/Tazobactam (Sod 3.375 gm/ Sodium Chloride) 50 mls @ 100 mls/ hr IV Q6HR [facility] Stop: 08/17/18 07:14 Last Infusion: 06/19/18 12:25 Dose: Infused Norepinephrine Bitartrate 4 mg (/ Dextrose) 254 mls @ 0 mls/hr IV TITR PRN; Protocol PRN Reason: BP MAINTENANCE (PER PROTOCOL) Stop: 08/17/18 07:59 Last Titration: 06/18/18 15:19 Dose: 0 mcg/min, 0 mls/hr Pantoprazole Sodium 80 mg/ (Sodium Chloride) 100 mls @ 10 mls/hr IV Q10H [facility] Stop: 08/17/18 09:29 Last Admin: 06/19/18 05:12 Dose: 10 mls/hr Octreotide Acetate 1,250 mcg/ (Sodium Chloride) 252.5 mls @ 0 mls/hr IV .Q0M [facility]; Protocol Stop: 08/17/18 09:29 Last Admin: 06/18/18 18:01 Dose: 10 mls/hr Dextrose/Sodium Chloride (D5-0.9%Ns) 1,000 mls @ 150 mls/hr IV .Q6H40M [facility] Stop: 08/17/18 15:29 Last Admin: 06/19/18 05:12 Dose: 150 mls/hr Vancomycin HCl 1.75 gm/ Sodium (Chloride) 500 mls @ 250 mls/hr IV Q24H [facility] Stop: 08/18/18 08:59 Last Infusion: 06/19/18 11:10 Dose: Infused Levetiracetam 500 mg/ Sodium (Chloride) 105 mls @ 100 mls/hr IV Q12H [facility] Stop: 08/18/18 10:59 Last Infusion: 06/19/18 12:40 Dose: Infused Lorazepam (Ativan) 1 mg IVP Q4HR PRN; Protocol PRN Reason: Agitation Stop: 08/17/18 06:55 Miscellaneous (Zosyn Iv Per Pharmacy) 1 ea PRN PRN PRN Reason: PROTOCOL Stop: 08/17/18 06:49 Miscellaneous (Vancomycin Iv Per Pharmacy) 1 ea PRN PRN PRN Reason: PROTOCOL Stop: 08/18/18 07:37 Morphine Sulfate (Morphine) 2 mg IVP Q4HR PRN PRN Reason: Pain (Moderate) Stop: 08/17/18 06:53 Last Admin: 06/19/18 09:35 Dose: 2 mg Lab - Result Diagrams 06/21/18 08:00 06/21/18 08:00 Kidney fnc slightly improved w/ BUN/CR of 29/2.4 Hgb/Hct stable @ 8.6/24.7 had clear liquid BM no longer has blood UOP improved replace K, Mg decrease IVF due to bipedal edema
--- NOTE | 2018-06-21 16:57 | GI Progress Note ---
Subjective - Review of Systems Service Date: 06/21/18 Events since last encounter: No bleeding Subjective: the same Objective - Results Result Diagrams: 06/21/18 08:00 06/21/18 08:00 Recent Labs: Laboratory Last Values WBC 16.8 Th/cmm (4.8-10.8) H 06/21/18 08:00 RBC 2.87 Mil/cmm (4.30-5.70) L 06/21/18 08:00 Hgb 8.6 gm/dL (12-16) L 06/21/18 08:00 Hct 24.7 % (41.0-60) L 06/21/18 08:00 MCV 86.0 fl (80-99) 06/21/18 08:00 MCH 30.1 pg (26.0-30.0) H 06/21/18 08:00 MCHC Differential 34.9 pg (28.0-36.0) 06/21/18 08:00 RDW 14.9 % (11.5-20.0) 06/21/18 08:00 Plt Count 117 Th/cmm (150-400) L 06/21/18 08:00 MPV 7.6 fl 06/21/18 08:00 Add Manual Diff YES 06/21/18 08:00 Neutrophils % 64.6 % (40.0-80.0) 06/20/18 04:20 Band Neutrophils % 1 % (0-10) 06/21/18 08:00 Lymphocytes % 23.2 % (20.0-50.0) 06/20/18 04:20 Monocytes % 11.0 % (2.0-10.0) H 06/20/18 04:20 Eosinophils % 0.5 % (0.0-5.0) 06/20/18 04:20 Basophils % 0.7 % (0.0-2.0) 06/20/18 04:20 Neutrophils (Manual) 69 % (40-80) 06/21/18 08:00 Lymphocytes 17 % (20-50) L 06/21/18 08:00 Monocytes 13 % (2-10) H 06/21/18 08:00 Eosinophils 0 % (0-5) 06/21/18 08:00 Basophils 0 % (0-3) 06/21/18 08:00 Hypochromia 1+ 06/18/18 03:50 Platelet Estimate SLIGHT DECREASED (NORMAL) 06/18/18 15:50 Polychromasia 1+ 06/18/18 03:50 Poikilocytosis 1+ 06/18/18 03:50 Arielle Cells 1+ 06/18/18 03:50 Schistocytes 1+ 06/18/18 03:50 Eos Smear Source URINE 06/19/18 04:00 Eos Smear Total Cells NONE SEEN (NONE SEEN) 06/19/18 04:00 PT 23.8 SECONDS (9.5-11.5) H 06/21/18 08:00 INR 2.20 (0.5-1.4) H 06/21/18 08:00 PTT (Actin FS) 54.6 SECONDS (26.0-38.0) H 06/19/18 06:10 Sodium 143 mEq/L (136-145) 06/21/18 08:00 Potassium 3.3 mEq/L (3.5-5.1) L 06/21/18 08:00 Chloride 117 mEq/L (98-107) H 06/21/18 08:00 Carbon Dioxide 16.3 mEq/L (21.0-31.0) L 06/21/18 08:00 Anion Gap 13.0 (7.0-16.0) 06/21/18 08:00 BUN 29 mg/dL (7-25) H 06/21/18 08:00 Creatinine 2.4 mg/dL (0.7-1.3) H 06/21/18 08:00 Est GFR ( Amer) 40.3 ml/min (>90) 06/21/18 08:00 Est GFR (Non-Af Amer) 33.3 ml/min 06/21/18 08:00 BUN/Creatinine Ratio 12.1 06/21/18 08:00 Glucose 119 mg/dL (70-105) H 06/21/18 08:00 Whole Bld Lactic Acid 1.33 mmol/L (0.60-1.99) 06/19/18 06:10 Uric Acid 6.4 mg/dL (4.4-7.6) 06/19/18 06:10 Calcium 7.9 mg/dL (8.6-10.3) L 06/21/18 08:00 Phosphorus 4.4 mg/dL (2.5-5.0) 06/19/18 06:10 Magnesium 1.9 mg/dL (1.9-2.7) 06/21/18 08:00 Total Bilirubin 20.5 mg/dL (0.3-1.0) H 06/21/18 08:00 AST 68 U/L (13-39) H 06/21/18 08:00 ALT 14 U/L (7-52) 06/21/18 08:00 Alkaline Phosphatase 149 U/L (34-104) H 06/21/18 08:00 Ammonia 55 umol/L (16-53) H 06/18/18 03:50 Troponin I 0.02 ng/mL (0.01-0.05) 06/18/18 03:50 Total Protein 4.5 gm/dL (6.0-8.3) L 06/21/18 08:00 Albumin 2.6 gm/dL (4.2-5.5) L 06/21/18 08:00 Globulin 1.9 gm/dL 06/21/18 08:00 Albumin/Globulin Ratio 1.4 (1.0-1.8) 06/21/18 08:00 Amylase 57 U/L (29-103) 06/18/18 03:50 Lipase 132 U/L (11-82) H 06/18/18 03:50 TSH 3.57 uIU/ml (0.34-5.60) 06/18/18 03:50 Urine Source [place] 06/19/18 11:45 Urine Color ORANGE 06/19/18 11:45 Urine Clarity HAZY (CLEAR) 06/19/18 11:45 Urine pH 5.5 (4.6 - 8.0) 06/19/18 11:45 Ur Specific [place] 1.015 (1.005-1.030) 06/19/18 11:45 Urine Protein TRACE mg/dL (NEGATIVE) 06/19/18 11:45 Urine Glucose (UA) NEGATIVE mg/dL (NEGATIVE) 06/19/18 11:45 Urine Ketones NEGATIVE mg/dL (NEGATIVE) 06/19/18 11:45 Urine Blood LARGE (NEGATIVE) H 06/19/18 11:45 Urine Nitrate NEGATIVE (NEGATIVE) 06/19/18 11:45 Urine Bilirubin LARGE (NEGATIVE) H 06/19/18 11:45 Urine Ictotest POSITIVE (NEGATIVE) H 06/19/18 11:45 Urine Urobilinogen 0.2 E.U./dL (0.2 - 1.0) 06/19/18 11:45 Ur Leukocyte Esterase TRACE (NEGATIVE) H 06/19/18 11:45 Urine RBC 5-10 /hpf (0-5) H 06/19/18 11:45 Urine WBC 2-5 /hpf (0-5) 06/19/18 11:45 Ur Epithelial Cells FEW /lpf (FEW) 06/19/18 11:45 Calcium Oxalate Crystal FEW /hpf 06/19/18 11:45 Urine Bacteria 1+ /hpf (NONE SEEN) H 06/19/18 11:45 Fine Granular Casts 0-2 /lpf (NONE SEEN) H 06/19/18 11:45 Coarse Granular Casts 2-5 /lpf (NONE SEEN) H 06/19/18 11:45 Ur Random Sodium 27 mmol/L 06/19/18 04:00 Urine Creatinine 76.4 mg/dl 06/19/18 11:45 Urine Microalbumin 26.8 06/19/18 11:45 Microalb/Creat Ratio 35.1 06/19/18 11:45 Stool Occult Blood POSITIVE (NEGATIVE) H 06/20/18 04:55 Vancomycin Trough 19.7 ug/mL (5-10) H 06/21/18 08:00 Random Vancomycin 15.4 ug/mL (5.0-40.0) 06/20/18 04:20 Ethyl Alcohol < 10 mg/dL (0-10) 06/18/18 03:50 Hepatitis A IgM Ab Negative (Negative) 06/18/18 07:09 Hep Bs Antigen Negative (Negative) 06/18/18 07:09 Hep B Core IgM Ab Negative (Negative) 06/18/18 07:09 Hepatitis C Antibody 0.1 s/co ratio (0.0-0.9) 06/18/18 07:09 Blood Type O POSITIVE 06/18/18 03:50 Antibody Screen NEGATIVE 06/18/18 03:50 Crossmatch See Detail 06/18/18 03:50 - Physical Exam Vitals and I&O: Vital Signs Temp 99.0 F 06/21/18 13:00 Pulse 103 06/21/18 16:00 Resp 16 06/21/18 16:00 BP 112/76 06/21/18 16:00 Pulse Ox 98 06/21/18 16:00 Intake & Output 06/20/18 06/21/18 06/21/18 18:59 06:59 18:59 Intake Total 2705 857.5 1380.833 Output Total 700 750 Balance 2005 107.5 1380.833 Weight (lbs) 98.515 kg 110.677 kg Intake: Intake, IV Amount 1805 457.5 1380.833 D5-0.45NS w/30 mEq KCL 1, 1000 000 ml @ 75 mls/hr IV . [id number] [facility] Rx#:[id number] D5-0.9%Ns 1,000 ml @ 150 1000 mls/hr IV .Q6H40M [facility] Rx# :[id number] Levetiracetam 500 mg In 105 105 105 Sodium Chloride 0.9% 100 ml @ 100 mls/hr IV Q12H [facility] Rx#:[id number] Magnesium Sulfate 2 gm In 50 Sodium Chloride 0.9% 50 ml @ 25 mls/hr IV ONCE ONE Rx#:[id number] Octreotide Acetate 1,250 252.5 175.833 mcg In Sodium Chloride 0. 9% 250 ml @ 10 mls/hr IV .Q24H [facility] Rx#:[id number] Pantoprazole 80 mg In 100 100 100 Sodium Chloride 0.9% 100 ml @ 10 mls/hr IV Q10H [facility] Rx#:[id number] Vancomycin HCl 1.75 gm In 500 Sodium Chloride 0.9% 500 ml @ 250 mls/hr IV Q24H [facility] Rx#:[id number] cefTRIAXone 1 gm In 50 Dextrose 5% 50 ml @ 100 mls/hr IV Q24H [facility] Rx#: [id number] Oral 900 400 Output: Urine 700 650 Stool 100 Other: # Bowel Movements 1 1 Stool Characteristics Black Liquid Bloody Brown Weight Source Bedscale Bedscale Active Medications: Current Medications Pantoprazole Sodium 80 mg/ (Sodium Chloride) 100 mls @ 10 mls/hr IV Q10H [facility] Stop: 08/17/18 09:29 Last Admin: 06/21/18 11:59 Dose: 10 mls/hr Octreotide Acetate 1,250 mcg/ (Sodium Chloride) 252.5 mls @ 10 mls/hr IV .Q24H [facility]; Protocol Stop: 08/17/18 09:29 Last Admin: 06/21/18 16:04 Dose: 10 mls/hr Levetiracetam 500 mg/ Sodium (Chloride) 105 mls @ 100 mls/hr IV Q12H [facility] Stop: 08/18/18 10:59 Last Infusion: 06/21/18 11:05 Dose: Infused Ceftriaxone Sodium 1 gm/ (Dextrose) 50 mls @ 100 mls/hr IV Q24H [facility] Stop: 08/18/18 15:59 Last Admin: 06/21/18 16:02 Dose: 100 mls/hr Potassium Chloride/Dextrose/Sod Cl (D5-0.45ns W/30 Meq Kcl) 1,000 mls @ 75 mls/ hr IV .[id number] [facility] Stop: 08/19/18 19:29 Last Admin: 06/21/18 08:55 Dose: 75 mls/hr Lorazepam (Ativan) 1 mg IVP Q4HR PRN; Protocol PRN Reason: Agitation Stop: 08/17/18 06:55 Midodrine (Proamatine) 5 mg PO TID [facility] Stop: 08/20/18 15:29 Last Admin: 06/21/18 16:02 Dose: 5 mg Miscellaneous (Zosyn Iv Per Pharmacy) 1 ea PRN PRN PRN Reason: PROTOCOL Stop: 08/17/18 06:49 Miscellaneous (Vancomycin Iv Per Pharmacy) 1 [facility] PRN PRN PRN Reason: PROTOCOL Stop: 08/18/18 07:37 Morphine Sulfate (Morphine) 2 mg IVP Q4HR PRN PRN Reason: Pain (Moderate) Stop: 08/17/18 06:53 Last Admin: 06/21/18 16:04 Dose: 2 mg Sodium Bicarbonate (Sodium Bicarbonate) 650 mg PO BID [facility]; Protocol Stop: 08/20/18 16:59 Last Admin: 06/21/18 16:02 Dose: 650 mg General: Alert, Oriented x3 HEENT: Atraumatic, Other (Jaundice) Neck: Supple Cardiovascular: Regular rate Lungs: Clear to auscultation Abdomen: Bowel sounds, Soft, Hepatomegaly, Distended, no Rebound, no Mass, no Guarding Extremities: Edema ((+2) edema), no Clubbing, no Cyanosis Neurological: Sensation intact Skin: no Rash Psych/Mental Status: Mood NL - Procedures Procedures: Procedures Procedure Code Date TRANSFUSE NONAUT FROZEN PLASMA IN PERIPH VEIN, OPEN 45259Y1 06/18/18 TRANSFUSE NONAUT RED BLOOD CELLS IN PERIPH VEIN, PERC 78846Z7 06/18/18 Assessment/Plan - Plan Plan: # Decompensated liver disease # 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 EGD showed non bleeding small to medium gastric varices and gastritis. Flex sig showed large amount of blood clot, large rectal ulcer actively bleeding. The ulcer was injected with epi, clippsed, and then cauterized with hemostasis achieved. Pt seems to have slowed down with bleeding, possibly stopped. If he rebleeds, it may be prudent to transfer to tertiary care as a TIPS procedure would be necessary for this type of portal hypertensive related bleeding that has failed endotherapy twice already. In terms of the cirrhosis, he is decompensated by ascites and varices. INR is elevated, and we will try vitamin K although this may not help that much. He will receive two more doses of vit K 5mg Plan: - will continue clears - cont monitor hgb, transfuse to keep hgb > 8 - vit K 10mg given 06/19, will get 5mg for 2 more doses - if rebleeds, needs surgical consult and consideration to transfer to a facility capable of performing TIPS with interventional radiology - will need repeat CT scan in 1-2 days to eval for resolution of possible microperf of the rectum. - hold off on paracentesis until the bleeding issue is resolved. Would likely require FFP prior to para
[2018-06-22] MEDS ORDERED: Diltiazem 5 mg/mL 5mL Vial IVP ONE (01:18)
[2018-06-22] MEDS: Diltiazem 5 mg/mL 5mL Vial IVP STA ×2 (01:24→01:25)
[2018-06-22] MEDS ORDERED: Sodium Bicarbonate 8.4% 50mEq PFS IVP ONE ×2 (01:36→01:39)
[2018-06-22] MEDS ORDERED: Diltiazem 5 mg/mL 5mL Vial IVP STA (01:40)
[2018-06-22] MEDS ORDERED: Sodium Chloride 0.9% 500 ML IV ONE (01:40)
[2018-06-22 01:49] LABS: ALLEN TEST yes
[2018-06-22] MEDS: Morphine Sulfate 2 mg/mL 1mL Syr IVP PRN (02:28)
[2018-06-22 04:25] LABS: MEAN CELL VOLUME 85.9 fl (80-99); MEAN CORPUSCULAR HEMOGLOBIN 30.6 pg (26.0-30.0); MEAN CORPUSCULAR HGB CONC 35.6 pg (28.0-36.0); PLATELET COUNT 126 Th/cmm (150-400); RED BLOOD COUNT 2.54 Mil/cmm (4.30-5.70); RED CELL DISTRIBUTION WIDTH 15.8 % (11.5-20.0)
[2018-06-22 04:35] LABS: HEMATOCRIT 21.8 % (41.0-60); HEMOGLOBIN 7.8 gm/dL (12-16)
[2018-06-22 04:56] LABS: ALB/GLOB RATIO 1.2 (1.0-1.8); ALBUMIN 2.2 gm/dL (4.2-5.5); BILIRUBIN,TOTAL 19.6 mg/dL (0.3-1.0); CALCIUM SERUM 7.6 mg/dL (8.6-10.3); CARBON DIOXIDE 15.3 mEq/L (21.0-31.0); POTASSIUM SERUM 3.3 mEq/L (3.5-5.1); TOTAL PROTEIN,SERUM 4.1 gm/dL (6.0-8.3)
[2018-06-22] MEDS ORDERED: Midazolam 1mg/ml 2 ml vial IV ONE (05:41)
[2018-06-22 08:18] LABS: BAND NEUTROPHILE 3 % (0-10); LYMPHOCYTE 4 % (20-50); MONOCYTE 4 % (2-10); NEUTROPHILS 89 % (40-80); PLATELET ESTIMATE SLIGHT DECREASED (NORMAL)
[2018-06-22 12:40] LABS: CREATININE - SERUM 2.5 mg/dL (0.7-1.3); GFR AFRICAN-AMERICAN 38.4 ml/min (>90); GFR NON AFRICAN-AMERICAN 31.8 ml/min
== END 2018-06-22 12:30 | disposition expired | DRG 810 ==
LOC: ER 03:05 → ICU 04:30
PROVIDERS: ADMIT Family Medicine; ATTEND Family Medicine
PROC: 0DJ08ZZ Inspection of Upper Intestinal Tract, Via Natural or Artificial Opening Endoscopic (ICD-10-PCS; principal; 2018-06-18)
PROC: 0W3P8ZZ Control Bleeding in Gastrointestinal Tract, Via Natural or Artificial Opening Endoscopic (ICD-10-PCS; 2018-06-18)
PROC: 0DCP8ZZ Extirpation of Matter from Rectum, Via Natural or Artificial Opening Endoscopic (ICD-10-PCS; 2018-06-18)
PROC: 3E0H8GC Introduction of Other Therapeutic Substance into Lower GI, Via Natural or Artificial Opening Endoscopic (ICD-10-PCS; 2018-06-18)
PROC: 06HM33Z Insertion of Infusion Device into Right Femoral Vein, Percutaneous Approach (ICD-10-PCS; 2018-06-18)
PROC: 30233L1 Transfusion of Nonautologous Fresh Plasma into Peripheral Vein, Percutaneous Approach (ICD-10-PCS; 2018-06-18)
PROC: 30233N1 Transfusion of Nonautologous Red Blood Cells into Peripheral Vein, Percutaneous Approach (ICD-10-PCS; 2018-06-18)
PROC: 30233K1 Transfusion of Nonautologous Frozen Plasma into Peripheral Vein, Percutaneous Approach (ICD-10-PCS; 2018-06-18)
DX: K91.840 Postprocedural hemorrhage of a digestive system organ or structure following a digestive system procedure (principal); R57.1 Hypovolemic shock; A41.9 Sepsis, unspecified organism; E43 Unspecified severe protein-calorie malnutrition; D68.9 Coagulation defect, unspecified; N17.9 Acute kidney failure, unspecified; D69.6 Thrombocytopenia, unspecified; N18.4 Chronic kidney disease, stage 4 (severe); E83.42 Hypomagnesemia; Y83.8 Other surgical procedures as the cause of abnormal reaction of the patient, or of later complication, without mention of misadventure at the time of the procedure; K62.6 Ulcer of anus and rectum; Y92.89 Other specified places as the place of occurrence of the external cause; K92.2 Gastrointestinal hemorrhage, unspecified; K70.40 Alcoholic hepatic failure without coma; D64.9 Anemia, unspecified; E87.6 Hypokalemia; K70.31 Alcoholic cirrhosis of liver with ascites; F17.210 Nicotine dependence, cigarettes, uncomplicated; K29.70 Gastritis, unspecified, without bleeding; K75.9 Inflammatory liver disease, unspecified; F10.20 Alcohol dependence, uncomplicated; I86.4 Gastric varices; Z68.31 Body mass index [BMI] 31.0-31.9, adult
CPT/HCPCS: 36415-UA; 76770-TC; 80053-TC; 80074-90; 80202-TC; 80320-TC; 81001-TC; 81015-TC; 82043-90; 82140-TC; 82150-TC; 82270-TC; 82570-TC; 82803-TC; 82948-90; 83605; 83690-TC; 83735-TC; 84100-TC; 84300-TC; 84443-TC; 84484-TC; 84550-TC; 85007-TC; 85014-TC; 85018-TC; 85025-TC; 85610-TC; 85730-TC; 86850-TC; 86900-TC; 86901-TC; 86922-TC; 90779; 90784; 93005; C9113; J0696; J1953; J2060; J2250; J2270; J2354; J2543; J2704; J3370; J3430; J3475; J3480; J7030; J7040; J7042; P9016; P9017; P9045; X6452; X7704; Z7506; Z7508; Z7610